=== PATIENT | female | born 1980 | race Caucasian/White ===

== ENCOUNTER 2017-03-23 04:35 | Emergency (ER) | payer SELFPAY ==
[~2017-03-23] VITALS: Ht 162.6 cm; Wt 65.0 kg
[2017-03-23 04:42] VITALS: BP 115/88; PULSE 85; RESP 20; TEMP 99.5; O2SAT 98
[2017-03-23] MEDS ORDERED: SILVER SULFADIAZINE 1% CR 50 GM JAR TOPICAL ONE (04:45)
[2017-03-23] MEDS ORDERED: KETOROLAC TROMETHAMINE 30 MG/ML (IVP) VIAL IV PUSH ONE (04:45)
[2017-03-23] MEDS ORDERED: SODIUM CHLOR 0.9% 1000 ML INJ 1,000 ML IV ONE (04:45)
[2017-03-23] MEDS ORDERED: TETANUS/DIPHTHERIA TOXOID ADULT 0.5 ML VIAL IM ONE (04:45)
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
[2017-03-23] MEDS ORDERED: oxyCODONE/ACETAMINOPHEN 5 MG/325 MG TAB PO ONE (05:15)
[2017-03-23] MEDS ORDERED: SILV1CRE20 TOPICAL (05:46)
[2017-03-23] MEDS ORDERED: PERC5TAB12 PO (05:46)
[2017-03-23] MEDS ORDERED: IBUP-232 PO (05:46)
[2017-03-23 06:12] VITALS: BP 121/71; PULSE 72; RESP 18; O2SAT 100
== END 2017-03-23 06:13 | disposition home or self-care (01) ==
LOC: PHED 04:35
DX: T21.21XA Burn of second degree of chest wall, initial encounter (principal); T22.291A Burn of second degree of multiple sites of right shoulder and upper limb, except wrist and hand, initial encounter; E16.2 Hypoglycemia, unspecified; Z23 Encounter for immunization; X12.XXXA Contact with other hot fluids, initial encounter; Y93.G3 Activity, cooking and baking; Y92.090 Kitchen in other non-institutional residence as the place of occurrence of the external cause; Y99.8 Other external cause status
CPT/HCPCS: 16025; 90471; 90714; 96361; 96374; 99284; J1885; J7030

== ENCOUNTER 2017-09-10 14:45 | Inpatient (IN) | payer SELFPAY ==
[~2017-09-10] VITALS: Ht 162.6 cm; Wt 78.7 kg
[~2017-09-10 14:45] MED LIST: IBUP-232 PO; PERC5TAB12 PO; SILV1CRE20 TOPICAL
[2017-09-10 15:03] VITALS: BP 122/73; PULSE 108; RESP 16; TEMP 99.2; O2SAT 97
[2017-09-10 16:16] VITALS: BP 109/59; PULSE 96; RESP 16; TEMP 99.5; O2SAT 95
[2017-09-10] MEDS ORDERED: SODIUM CHLOR 0.9% 1000 ML INJ 1,000 ML IV SCH (17:00)
[2017-09-10] MEDS ORDERED: VANCOMYCIN INJ 1,000 MG in SODIUM CHLOR 0.9% 250 ML INJ 250 ML IV ONE (17:00)
[2017-09-10] MEDS ORDERED: KETOROLAC TROMETHAMINE 30 MG/ML (IVP) VIAL IV PUSH ONE (17:00)
--- NOTE | 2017-09-10 17:00 | PD ---
HPI Chief Complaint: Skin Problem Time Seen by Provider: 16:43 Travel History International Travel<30 days: No Contact w/Intl Traveler<30days: No Traveled to known affect area: No History of Present Illness HPI 37-year-old female complaining of pain swelling right forearm. Patient states that she was doing yard work and got a puncture wound to the right forearm about 10 days ago. Patient states that the pain and swelling and redness is worse for the past 5 days. Patient states that she used a sharp pin and trying to drain the right forearm last night. Patient states that she got small amount of pus from it. Patient denies any fever chills. Patient states the pain is severe sharp pain localized to right forearm. Patient denies any pain radiation. Patient states that she is up-to-date with TD booster. Patient denies any chance of being . PFSH Past Medical History Cancer: Yes (STAGE II CERVICAL, lymphoma) Diminished Hearing: No Endocrine: Yes (HYPOGLYCEMIA) Immunizations Current: Yes Radiation Therapy: Yes Seizures: Yes Influenza Vaccination: No ?: Not LMP: 1 week ago : 9 Para: 2 Miscarriage: 7 Dilation and Curettage (D&C): Yes Past Surgical History Gynecologic Surgery: Yes (cervical scraping) Other Surgery: Yes (LYMPHOMA RIGHT LEG) Social History Alcohol Use: No Tobacco Use: Yes (1 ppd) Substance Use: No Allergies-Medications (Allergen,Severity, Reaction): Coded Allergies: morphine (Unverified Allergy, Intermediate, 09/10/17) penicillin G (Unverified Allergy, Unknown, 09/10/17) Reported Meds & Prescriptions Reported Meds & Active Scripts Active No Active Prescriptions or Reported Medications Review of Systems General / Constitutional: No: Fever Eyes: No: Visual changes HENT: No: Headaches Cardiovascular: No: Chest Pain or Discomfort Respiratory: No: Shortness of Breath Gastrointestinal: No: Abdominal Pain Genitourinary: No: Dysuria Musculoskeletal: Positive: Edema, Pain Skin: No Rash Neurologic: No: Weakness Psychiatric: No: Depression Endocrine: No: Polydipsia Hematologic/Lymphatic: No: Easy Bruising Physical Exam Narrative GENERAL: Well-nourished, well-developed patient. SKIN: Focused skin assessment warm/dry. HEAD: Normocephalic. EYES: No scleral icterus. No injection or drainage. NECK: Supple, trachea midline. No JVD or lymphadenopathy. CARDIOVASCULAR: Regular rate and rhythm without murmurs, gallops, or rubs. RESPIRATORY: Breath sounds equal bilaterally. No accessory muscle use. GASTROINTESTINAL: Abdomen soft, non-tender, nondistended. MUSCULOSKELETAL: Patient has redness swelling tenderness the right forearm. No induration. No discharge. Patient has edema to right hand also. Patient has several puncture wounds on the left hand dorsal aspect. BACK: Nontender without obvious deformity. No CVA tenderness. Neurologic exam normal. Data Data Last Documented VS Vital Signs Date Time Temp Pulse Resp B/P (MAP) Pulse Ox O2 Delivery O2 Flow Rate FiO2 09/10/17 16:16 99.5 96 16 109/59 (76) 95 Room Air Orders Orders Complete Blood Count With Diff (09/10/17 16:52) Comprehensive Metabolic Panel (09/10/17 16:52) Blood Culture (09/10/17 16:52) Iv Access Insert/Monitor (09/10/17 16:52) Ecg Monitoring (09/10/17 16:52) Sodium Chlor 0.9% 1000 Ml Inj (Ns 1000 M (09/10/17 17:00) Vancomycin Inj (Vancomycin Inj) (09/10/17 17:00) Ketorolac Inj (Toradol Inj) (09/10/17 17:00) Forearm (2vws) (09/10/17 16:56) Labs Laboratory Tests Test 09/10/17 17:05 White Blood Count 17.1 TH/MM3 Red Blood Count 4.83 MIL/MM3 Hemoglobin 12.4 GM/DL Hematocrit 38.9 % Mean Corpuscular Volume 80.6 FL Mean Corpuscular Hemoglobin 25.8 PG Mean Corpuscular Hemoglobin Concent 32.0 % Red Cell Distribution Width 13.9 % Platelet Count 361 TH/MM3 Mean Platelet Volume 7.9 FL Neutrophils (%) (Auto) 73.2 % Lymphocytes (%) (Auto) 16.9 % Monocytes (%) (Auto) 5.5 % Eosinophils (%) (Auto) 0.2 % Basophils (%) (Auto) 4.2 % Neutrophils # (Auto) 12.6 TH/MM3 Lymphocytes # (Auto) 2.9 TH/MM3 Monocytes # (Auto) 0.9 TH/MM3 Eosinophils # (Auto) 0.0 TH/MM3 Basophils # (Auto) 0.7 TH/MM3 CBC Comment DIFF FINAL Differential Comment Blood Urea Nitrogen 15 MG/DL Creatinine 0.71 MG/DL Random Glucose 74 MG/DL Total Protein 8.6 GM/DL Albumin 3.4 GM/DL Calcium Level 8.6 MG/DL Alkaline Phosphatase 146 U/L Aspartate Amino Transf (AST/SGOT) 67 U/L Alanine Aminotransferase (ALT/SGPT) 47 U/L Total Bilirubin 0.6 MG/DL Sodium Level 133 MEQ/L Potassium Level 4.8 MEQ/L Chloride Level 101 MEQ/L Carbon Dioxide Level 24.7 MEQ/L Anion Gap 7 MEQ/L Estimat Glomerular Filtration Rate 92 ML/MIN MDM Medical Decision Making Medical Screen Exam Complete: Yes Emergency Medical Condition: Yes Interpretation(s) 1739 PM. CBC WBC 17.1. 73 neutrophil. Sodium 133. AST 67. Alkaline phosphatase 146. Differential Diagnosis Differential diagnosis includes cellulitis, abscess. Narrative Course 37-year-old female with redness swelling tenderness right forearm after a puncture wound injury 10 days ago. Normal saline solution 1 25 cc an hour. Toradol 30 mg IV. Vancomycin 1 g IV. Diagnosis Primary Impression: Right forearm cellulitis Admitting Information Admitting Physician Requests: Admit Scripts No Active Prescriptions or Reported Meds Nathan Jefferson MD Sep 10, 2017 17:00
[2017-09-10 17:16] LABS: AUTOMATED NEUTROPHIL # 12.6 TH/MM3 (1.8-7.7); BASOPHIL # 0.7 TH/MM3 (0-0.2); BASOPHIL % 4.2 % (0.0-2.0); EOSINOPHIL % 0.2 % (0.0-4.0); HEMATOCRIT 38.9 % (35.0-46.0); LYMPH % 16.9 % (9.0-44.0); LYMPHOCYTE # 2.9 TH/MM3 (1.0-4.8); MEAN CELL VOLUME 80.6 FL (80.0-100.0); MEAN CORPUSCULAR HEMOGLOBIN 25.8 PG (27.0-34.0); MONO % 5.5 % (0.0-8.0); NEUT % 73.2 % (16.0-70.0); PLATELET COUNT 361 TH/MM3 (150-450); RED BLOOD COUNT 4.83 MIL/MM3 (4.00-5.30); RED CELL DISTRIBUTION WIDTH 13.9 % (11.6-17.2); WHITE BLOOD COUNT 17.1 TH/MM3 (4.0-11.0)
[2017-09-10 17:22] LABS: HEMO FLAGS DIFF FINAL
[2017-09-10 17:24] LABS: CHLORIDE 101 MEQ/L (98-107); POTASSIUM 4.8 MEQ/L (3.5-5.1); SODIUM (NA) 133 MEQ/L (136-145)
[2017-09-10 17:28] LABS: ANION GAP 7 MEQ/L (5-15); BICARBONATE 24.7 MEQ/L (21.0-32.0); BLOOD UREA NITROGEN 15 MG/DL (7-18)
[2017-09-10 17:31] LABS: ALT (GPT) 47 U/L (10-53); AST (GOT) 67 U/L (15-37); GLOMERULAR FILTRATION RATE 92 ML/MIN (>89)
[2017-09-10 17:33] LABS: TOTAL BILIRUBIN ADULT 0.6 MG/DL (0.2-1.0)
[2017-09-10 17:34] LABS: ALKALINE PHOSPHATASE 146 U/L (45-117)
--- NOTE | 2017-09-10 17:48 | RADRPT ---
EXAM DATE/TIME: 09/10/2017 17:33 [facility] COMPARISON: No previous studies available for comparison. INDICATIONS : Fell on yard debris, had scrape to forearm, no has swelling, redness, pain, hot to touch MEDICAL HISTORY : None. SURGICAL HISTORY : None. ENCOUNTER: Initial ACUITY: 1 week PAIN SCORE: 10/10 LOCATION: Right Forearm FINDINGS: Two view examination of the right forearm demonstrates no evidence of fracture or dislocation. Bony mineralization is normal. The soft tissue structures are swollen. CONCLUSION: 1. Soft tissue swelling of the forearm. No acute bony abnormality. Sandro Jacobs MD on September 10, 2017 at 17:45 Board Certified Radiologist. This report was verified electronically.
[2017-09-10 18:20] VITALS: BP 98/55; PULSE 86; RESP 16; O2SAT 98
[2017-09-10] MEDS: SODIUM CHLOR 0.9% 1000 ML INJ 1,000 ML IV SCH (18:58)
[2017-09-10] MEDS ORDERED: SODIUM CHLORID 0.9% 500 ML INJ 500 ML IV ONE (19:00)
[2017-09-10] MEDS ORDERED: SODIUM CHLOR 0.9% 1000 ML INJ 1,000 ML IV ONE (19:00)
--- NOTE | 2017-09-10 19:40 | HHI.HP ---
HPI Service [facility] Primary Care Physician No Primary Care Physician Admission Diagnosis right forearm cellulitis Diagnoses: Chief Complaint: arm pain Travel History International Travel<30 Days: No Contact w/Intl Traveler <30 Da: No Traveled to Known Affected Are: No History of Present Illness 37-year-old female being admitted for sepsis secondary to cellulitis. 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 She says she had some bleeding and simply cleaned this up. She has had persistent pain in the region since the injury but 5 days later on the opposite side of the forearm ( posterior aspect) she noted a bolus-like lesion appear at the junction of her wrist which then progressed to diffuse wrist swelling as well as diffuse forearm swelling. She said she tried to mary a vesicular appearing lesions on her distal forearm one of which did rupture with her line exudate. She used her work name-tag for the lancing. She says she got very little relief from the lancing. She decided to come to the emergency room when she woke up in intense pain last night that made her cry. She does endorse some fevers and chills but no nausea no vomiting. In the emergency room she received vancomycin. Lab work found that she was leukocytotic. Patient reports having a history of both lymphoma and cervical stage II cancer; says she has poor medical follow-up due to no insurance down here in [place]. Her illnesses were previously managed in [place] and she thought she was told by somebody she might have cancer in her left breast or at least lymphadenopathy in her left breast. Case d/w ER physician. Review of Systems Except as stated in HPI: all other systems reviewed are Neg Past Family Social History Past Medical History Lymphoma (nonspecified but behind the right knee) - treated for [place] Stage II cervical cancer - with comprehensive treatment done in [place] Previous episodes of cellulitis on the arms Psoriasis Allergies: Coded Allergies: adhesive (Verified Allergy, Severe, Rash, 09/11/17) latex (Verified Allergy, Severe, Rash, 09/11/17) morphine (Verified Allergy, Severe, Hypotension, 09/11/17) penicillin G (Verified Allergy, Severe, Anaphylaxis, 09/11/17) Family History Cousin with rosacea Social History Patient does smoke cigarettes at least 2-3 packs a day Physical Exam Vital Signs Vital Signs Date Time Temp Pulse Resp B/P (MAP) Pulse Ox O2 Delivery O2 Flow Rate FiO2 09/10/17 18:20 86 16 98/55 (69) 98 Room Air 09/10/17 16:16 99.5 96 16 109/59 (76) 95 Room Air 09/10/17 15:03 99.2 108 16 122/73 (89) 97 Physical Exam VS: Afebrile GENERAL: NAD SKIN: Warm and dry. Breast: Exam done in presence of female nurse, has mild tender soft fluctuant lesion in Center quadrant above nipple line and breast, no overlying skin changes and no lymph nodes palpated in axilla or remaining breast quadrants EYES: No scleral icterus. No injection or drainage. ENT: No nasal bleeding or discharge. Mucous membranes pink and moist. CARDIOVASCULAR: Regular rate and rhythm. no murmurs RESPIRATORY: No accessory muscle use. Clear to auscultation. Breath sounds equal bilaterally. GASTROINTESTINAL: Abdomen soft, non-tender, nondistended. Extremities: No clubbing, cyanosis. Has obvious edema that extends from the mid shaft forearm on the posterior side down to the hand; there is exquisite tenderness to palpation over the erythematous patchy areas. MUSCULOSKELETAL: No obvious deformities. I am able to passively fully flex and extend the patient's wrist and fingers but both motions cause pain at the patient's wrist joint. NEUROLOGICAL: Awake and alert. No obvious cranial nerve deficits. No facial droop nor slurred speech noted. PSYCHIATRIC: Appropriate mood and affect; insight and judgment normal. Laboratory Laboratory Tests Test 09/10/17 17:05 White Blood Count 17.1 Red Blood Count 4.83 Hemoglobin 12.4 Hematocrit 38.9 Mean Corpuscular Volume 80.6 Mean Corpuscular Hemoglobin 25.8 Mean Corpuscular Hemoglobin Concent 32.0 Red Cell Distribution Width 13.9 Platelet Count 361 Mean Platelet Volume 7.9 Neutrophils (%) (Auto) 73.2 Lymphocytes (%) (Auto) 16.9 Monocytes (%) (Auto) 5.5 Eosinophils (%) (Auto) 0.2 Basophils (%) (Auto) 4.2 Neutrophils # (Auto) 12.6 Lymphocytes # (Auto) 2.9 Monocytes # (Auto) 0.9 Eosinophils # (Auto) 0.0 Basophils # (Auto) 0.7 CBC Comment DIFF FINAL Differential Comment Blood Urea Nitrogen 15 Creatinine 0.71 Random Glucose 74 Total Protein 8.6 Albumin 3.4 Calcium Level 8.6 Alkaline Phosphatase 146 Aspartate Amino Transf (AST/SGOT) 67 Alanine Aminotransferase (ALT/SGPT) 47 Total Bilirubin 0.6 Sodium Level 133 Potassium Level 4.8 Chloride Level 101 Carbon Dioxide Level 24.7 Anion Gap 7 Estimat Glomerular Filtration Rate 92 Date/Time Source Procedure Growth Status 09/10/17 17:15 Blood Peripheral Aerobic Blood Culture Pending Received 09/10/17 17:15 Blood Peripheral Anaerobic Blood Culture Pending Received Result Diagram: 09/10/17 1705 09/10/17 1705 Imaging Last Impressions Radius/Ulna X-Ray 09/10/17 1656 Signed Impressions: Service Date/Time: Sunday, September 10, 2017 17:33 - CONCLUSION: 1. Soft tissue swelling of the forearm. No acute bony abnormality. Sandro Jacobs MD Caprini VTE Risk Assessment Caprini VTE Risk Assessment: Mod/High Risk (score >= 2) Caprini Risk Assessment Model Point Value = 1 Point Value = 2 Point Value = 3 Point Value = 5 Age 41-60 Minor surgery BMI > 25 kg/m2 Swollen legs Varicose veins or History of unexplained or recurrent spontaneous Oral contraceptives or hormone replacement Sepsis (< 1 month) Serious lung disease, including pneumonia (< 1 month) Abnormal pulmonary function Acute myocardial infarction Congestive heart failure (< 1 month) History of inflammatory bowel disease Medical patient at bed rest Age 61-74 Arthroscopic surgery Major open surgery (> 45 min) Laparoscopic surgery (> 45 min) Malignancy Confined to bed (> 72 hours) Immobilizing plaster cast Central venous access Age >= 75 History of VTE Family history of VTE Factor V Leiden Prothrombin [id number] Lupus anticoagulant Anticardiolipin antibodies Elevated serum homocysteine Heparin-induced thrombocytopenia Other congenital or acquired thrombophilia Stroke (< 1 month) Elective arthroplasty Hip, pelvis, or leg fracture Acute spinal cord injury (< 1 month) Prophylaxis Regimen Total Risk Factor Score Risk Level Prophylaxis Regimen 0-1 Low Early ambulation 2 Moderate Order ONE of the following: *Sequential Compression Device (SCD) *Heparin 5000 units SQ BID 3-4 Higher Order ONE of the following medications: *Heparin 5000 units SQ TID *Enoxaparin/Lovenox 40 mg SQ daily (WT < 150 kg, CrCl > 30 mL/min) *Enoxaparin/Lovenox 30 mg SQ daily (WT < 150 kg, CrCl > 10-29 mL/min) *Enoxaparin/Lovenox 30 mg SQ BID (WT < 150 kg, CrCl > 30 mL/min) AND/OR *Sequential Compression Device (SCD) 5 or more Highest Order ONE of the following medications: *Heparin 5000 units SQ TID (Preferred with Epidurals) *Enoxaparin/Lovenox 40 mg SQ daily (WT < 150 kg, CrCl > 30 mL/min) *Enoxaparin/Lovenox 30 mg SQ daily (WT < 150 kg, CrCl > 10-29 mL/min) *Enoxaparin/Lovenox 30 mg SQ BID (WT < 150 kg, CrCl > 30 mL/min) AND *Sequential Compression Device (SCD) Assessment and Plan Assessment and Plan sepsis secondary to forearm cellulitis with possible abscess - Blood cultures, obtain cath UA - We'll obtain chest x-ray - NS 30 ML/KG IV fluid bolus Followed by IV infusion Right arm edema - Discussed thoroughly with ultrasound to evaluate for both emboli as well as soft tissue abscess from the forearm down to the hand - We'll continue with vancomycin, patient has clarified that she cannot take penicillin as it ultimately results in her throat closing in the past but she has recently taken Keflex with no issues, therefore we will use additionally use cefepime for appropriate broad-spectrum coverage - Nothing by mouth after midnight in case surgical intervention is warranted tender breast nodules - US of left breast DVT prevention - SCDs for now given possibly of surgical intervention Physician Certification 2 Midnight Certification Type: Admission for Inpatient Services Order for Inpatient Services The services are ordered in accordance with Medicare regulations or non- Medicare payer requirements, as applicable. In the case of services not specified as inpatient-only, they are appropriately provided as inpatient services in accordance with the 2-midnight benchmark. Estimated LOS (days): 2 2 days is the estimated time the patient will need to remain in the hospital, assuming treatment plan goals are met and no additional complications. Post-Hospital Plan: Home Martínez Jara MD Sep 10, 2017 19:40
[2017-09-10] MEDS ORDERED: HYDROmorphone HCL PF 1 MG/ML VIAL IV PUSH ONE (19:45)
[2017-09-10] MEDS ORDERED: ACETAMINOPHEN/HYDROcodone 325 MG/5 MG TAB PO ONE (19:45)
[2017-09-10 20:00] VITALS: BP 94/52; PULSE 88; RESP 16; TEMP 98.3; O2SAT 95
[2017-09-10] MEDS ORDERED: Vancomycin Consult Pharmacy 1 EA OTHER SCH ×2 (20:00)
--- NOTE | 2017-09-10 20:13 | RADRPT ---
EXAM DATE/TIME: 09/10/2017 19:37 [facility] COMPARISON: No previous studies available for comparison. INDICATIONS : Abscess. MEDICAL HISTORY : Glasses. Seizures. Hypoglycemia. Cervical cancer. Lymphoma. Radiation therapy. SURGICAL HISTORY : Cervical scraping. Dilation and curettage. ENCOUNTER: Initial ACUITY: 2 weeks PAIN SCORE: 8/10 LOCATION: Right Forerarm/hand AREA EVALUATED: Right forearm/hand. FINDINGS: Multiple complex fluid and soft tissue collections involving the right posterior wrist measuring up t o 2.5 x 0.4 x 2.5 cm. In the mid right forearm these measure up to 9.9 cm in length by 2.3 x 3.1 cm. CONCLUSION: 1. Multiple complex fluid and soft tissue collections involving the right posterior wrist and forearm . Differential diagnosis is infection and/or inflammatory change. Sandro Jacobs MD on September 10, 2017 at 20:09 Board Certified Radiologist. This report was verified electronically.
--- NOTE | 2017-09-10 20:14 | RADRPT ---
EXAM DATE/TIME: 09/10/2017 19:38 [facility] COMPARISON: No previous studies available for comparison. INDICATIONS : Right arm swelling. MEDICAL HISTORY : Glasses. Seizures. Hypoglycemia. Cervical cancer. Lymphoma. Radiation therapy. SURGICAL HISTORY : Cervical scraping. Dilation and curettage. ENCOUNTER: Initial ACUITY: 2 weeks PAIN SCORE: 8/10 LOCATION: Right arm. FINDINGS: There is spontaneous flow documented in the brachial, basilic, cephalic, axillary, and subclavian vei ns. The vessels are compressible and augmentation response is documented. No filling defects are se en. The flow is phasic with respiration. Direction of flow in the jugular vein is caudal. CONCLUSION: Normal examination. Sandro Jacobs MD on September 10, 2017 at 20:12 Board Certified Radiologist. This report was verified electronically.
--- NOTE | 2017-09-10 20:24 | RADRPT ---
EXAM DATE/TIME: 09/10/2017 19:59 [facility] COMPARISON: No previous studies available for comparison. INDICATIONS : Fever, right forearm swelling, sepsis. MEDICAL HISTORY : Lymphoma. Smoker. Cervical carcinoma. SURGICAL HISTORY : None. ENCOUNTER: Initial ACUITY: 4 - 6 days PAIN SCORE: 0/10 LOCATION: Bilateral chest FINDINGS: PA and lateral views of the chest demonstrate the lungs to be symmetrically aerated without evidence of mass, infiltrate or effusion. The cardiomediastinal contours are unremarkable. Osseous structure s are intact. CONCLUSION: No acute disease. Sandro Jacobs MD on September 10, 2017 at 20:22 Board Certified Radiologist. This report was verified electronically.
[2017-09-10] MEDS: CEFEPIME INJ 2,000 MG in SODIUM CHLORIDE 0.9% INJ 100 ML IV SCH (20:59)
[2017-09-11] VITALS: BP 93/52; PULSE 88; RESP 16; TEMP 98.9; O2SAT 95
[2017-09-11] MEDS: ACETAMINOPHEN/HYDROcodone 325 MG/10 MG TAB PO PRN ×3 (01:19→20:04)
[2017-09-11 04:00] VITALS: BP 118/56; PULSE 88; RESP 16; TEMP 98.4; O2SAT 95
[2017-09-11] MEDS: VANCOMYCIN 1,000 MG/NS 250 ML IV SCH ×4 (05:00→16:18)
[2017-09-11 06:38] LABS: AUTOMATED NEUTROPHIL # 8.4 TH/MM3 (1.8-7.7); BASOPHIL # 0.1 TH/MM3 (0-0.2); EOSINOPHIL % 0.4 % (0.0-4.0); HEMATOCRIT 33.4 % (35.0-46.0); HEMO FLAGS DIFF FINAL; LYMPH % 22.2 % (9.0-44.0); LYMPHOCYTE # 2.7 TH/MM3 (1.0-4.8); MEAN CELL VOLUME 81.6 FL (80.0-100.0); MEAN CORPUSCULAR HEMOGLOBIN 26.3 PG (27.0-34.0); MEAN CORPUSCULAR HGB CONC 32.2 % (32.0-36.0); MONO % 7.9 % (0.0-8.0); NEUT % 68.5 % (16.0-70.0); PLATELET COUNT 266 TH/MM3 (150-450); RED BLOOD COUNT 4.09 MIL/MM3 (4.00-5.30); RED CELL DISTRIBUTION WIDTH 13.7 % (11.6-17.2); WHITE BLOOD COUNT 12.2 TH/MM3 (4.0-11.0)
[2017-09-11] MEDS: SODIUM CHLOR 0.9% 1000 ML INJ 1,000 ML IV SCH ×3 (06:41→20:03)
[2017-09-11 08:00] VITALS: BP 100/55; PULSE 98; RESP 18; TEMP 99.2; O2SAT 99
[2017-09-11] MEDS: CEFEPIME INJ 2,000 MG in SODIUM CHLORIDE 0.9% INJ 100 ML IV SCH ×2 (08:00→20:02)
[2017-09-11] MEDS: HYDROmorphone HCL PF 1 MG/ML VIAL IV PUSH PRN ×3 (09:35→21:18)
[2017-09-11] MEDS ORDERED: NEOMYCIN/POLYMYXIN 1 ML G.U. IRRIGANT ONE (10:05)
--- NOTE | 2017-09-11 10:14 | HHI.PR ---
Subjective Remarks RN reports patient has had uncontrolled pain since last night still. Patient says her arm still has uncontrolled swelling. Has had some mild nausea this morning. Objective Vital Signs Date Time Temp Pulse Resp B/P (MAP) Pulse Ox O2 Delivery O2 Flow Rate FiO2 09/11/17 08:00 99.2 98 18 100/55 (70) 99 09/11/17 04:00 98.4 88 16 118/56 (76) 95 09/11/17 00:00 98.9 88 16 93/52 (66) 95 09/10/17 20:28 98 09/10/17 20:00 98.3 88 16 94/52 (66) 95 09/10/17 18:20 86 16 98/55 (69) 98 Room Air 09/10/17 16:16 99.5 96 16 109/59 (76) 95 Room Air 09/10/17 15:03 99.2 108 16 122/73 (89) 97 I/O 09/10/17 09/10/17 09/10/17 09/11/17 09/11/17 09/11/17 07:00 15:00 23:00 07:00 15:00 23:00 Intake Total 1478 ml 2450 ml Balance 1478 ml 2450 ml Intake IV Total 1478 ml 2450 ml # Voids 2 Result Diagram: 09/11/17 0625 09/10/17 1705 Objective Remarks exam unchanged since yesterday pt has 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 CXR I independently reviewed is negative. DVT prevention - SCDs for now given surgical intervention Martínez Jara MD Sep 11, 2017 10:13
[2017-09-11] MEDS ORDERED: MIDAZOLAM HCL 2 MG/2 ML VIAL ONE (10:27)
--- NOTE | 2017-09-11 10:39 | MB ---
cc: AISHA PATRICK MD DATE OF CONSULTATION: 09/11/2017 REASON FOR CONSULTATION: Right forearm abscess. HISTORY OF PRESENT ILLNESS: The patient is a 37-year-old right-hand dominant female presenting with complaints of pain and swelling involving the right forearm for the past ten days which is gradually increasing. The patient states she scraped her arm against something sharp and she tried to puncture it with a pin trying to drain the forearm. She presented to the hospital with worsening pain involving the right forearm. She denies any tingling or numbness. Denies any drainage. She complains of weakness of the right hand. Denies any fever. The patient states she is feeling chills this morning. Denies any history of similar complaints in the past. PAST MEDICAL HISTORY: Significant for lymphoma and cervical cancer. PAST SURGICAL HISTORY: Nonsignificant. PHYSICAL EXAMINATION: The patient is alert and oriented x 3. Examination of the right upper extremity reveals swelling over the dorsal aspect of the distal forearm extending along the whole length of the forearm. There is tenderness noted over the dorsal aspect of the distal forearm with exquisite tenderness over the region. She has increased warmth. She has intact extension of the thumb and fingers. The wrist range of motion is limited and painful. The forearm compartments on the volar aspect appears to be supple, the dorsal aspect appears to be not tense. She has palpable radial and ulnar pulses. She has intact sensation distally. LABORATORY DATA: White blood cell count is 17.1 with neutrophil shift of 73%. IMAGING STUDIES: Ultrasound of the right upper extremity shows evidence of a complex fluid collection over the dorsal aspect, distal forearm. ASSESSMENT: The patient is a 37-year-old female with abscess right forearm. PLAN: Plan will be to take the patient emergently for incision and drainage of right forearm abscess. The patient has been explained the risk and benefits of the procedure. We will continue with IV antibiotics. Aisha Patrick MD SE/BABAR /9:34 AM /10:24 AM [facility]
[2017-09-11] MEDS ORDERED: CLINDAMYCIN PHOS 600 MG/4 ML VIAL ONE (11:07)
[2017-09-11] MEDS ORDERED: HYDROmorphone HCL PF 2 MG/ML VIAL ONE ×3 (12:30→13:00)
--- NOTE | 2017-09-11 12:33 | PD.OP ---
Operative Report Preoperative Diagnosis: (1) Abscess of right forearm Postoperative Diagnosis: (1) Abscess of right forearm (2) compartment syndrome extensor right forearm Procedure: incision and drainage right forearm abscess extensor compartment release with debridement of necrotic muscle right forearm Anesthesia: general Surgeon: Anton Oseguera Cosmetics Demonstrator(s): xavi Operation and Findings: subfascial abscess extensor compartment necrotic muscle with extensor tenosynovitis right forearm Anton Oseguera MD Sep 11, 2017 12:33
[2017-09-11] MEDS ORDERED: MEPERIDINE HCL 25 MG/ML VIAL ONE (12:46)
[2017-09-11] MEDS ORDERED: LACTATED RINGER'S 1000 ML INJ 1,000 ML ONE (12:57)
[2017-09-11] MEDS ORDERED: METOPROLOL TARTRATE 25 MG TAB PO PRN (13:00)
[2017-09-11] MEDS ORDERED: SODIUM CHLORID 0.9% 500 ML IV PRN (13:00)
[2017-09-11] MEDS ORDERED: LACTATED RINGER'S 1000 ML IV PRN (13:00)
[2017-09-11] MEDS ORDERED: CHLORHEXIDINE GLUCONATE 2 % 1 PACK (2 CLOTHS) TOPICAL PRN (13:00)
[2017-09-11] MEDS ORDERED: POVIDONE IODINE 5% (ANTISEPSIS KIT) 4 APPLICATIONS EACH NARE PRN (13:00)
--- NOTE | 2017-09-11 13:13 | MP ---
cc: ANTON PATRICK MD DATE OF SURGERY: 09/11/2017 PREOPERATIVE DIAGNOSIS: Abscess right forearm. POSTOPERATIVE DIAGNOSIS: Abscess right forearm, compartment syndrome. Extensor right forearm surgery. OPERATION: Incision and drainage right forearm abscess, Extensor compartment release with debridement of necrotic muscle right forearm. SURGEON Dr. Patrick ANESTHESIA General ESTIMATED BLOOD LOSS Minimal TOURNIQUET TIME 30 minutes at 250 mmHg. Material was sent for culture and sensitivity and for pathology to PACU stable. INDICATIONS FOR PROCEDURE: The patient is a 37-year-old female who presented with complaints of pain, swelling over the right forearm for the past 10 days. She complained of severe pain which is getting worse and she was admitted last night. On examination she had swelling and exquisite tenderness over the dorsal aspect of the forearm. Range of motion of the wrist was limited and painful. She had an elevated white count of 12.2 and she had an ultrasound that showed complex collection involving the right forearm measuring 4 x 3 cm on the dorsal aspect of the wrist and another collection extending over the mid forearm region measuring about 9 x 2 x 3 cm. The patient was consented for incision and drainage of right forearm abscess. She was explained the risks and benefits of the procedure. DESCRIPTION OF PROCEDURE: The patient was brought to the operating room, under general anesthesia the right upper extremity was thoroughly prepped and draped. Incision site was marked in a longitudinal fashion corresponding to the swelling and tenderness in the distal part of the mid forearm measuring about 5-6 cm. After limb elevation tourniquet was inflated 250 mmHg. Incision was then made over the proposed incision site. There was evidence of extensive thickening and induration of the subcutaneous soft tissue. On further exploration there was evidence of bulging from underneath the fascia involving the extensor compartment on releasing the fascia. There was evidence of purulent material with necrosis within the extensor compartment of the forearm. The muscle appeared to be necrotic, hence decision was made to release the extensor compartment. About 10 to 15 cc of purulent material was drained. The material was sent for culture and sensitivity. Extensor compartment was released all the way to the proximal forearm. Another small incision was made over the proximal aspect of the forearm exposing the extensor compartment and extensor fascia was released over that region and was connected to the main incision site. Excisional debridement of necrotic muscle was carried out. Distally the incision was extended to the extensor retinaculum. There was evidence of extensor tenosynovitis which was debrided. Material was sent for pathology and culture and sensitivity. Thorough wash was carried out using normal saline mixed with hydrogen peroxide. This was then followed by normal saline mixed with irrigant. About a liter of solution was used. Tourniquet was deflated. Total tourniquet time was 30 minutes. She had good distal circulation. Bleeding points cauterized with bipolar cautery. Decision was made to proceed with Vac placement. Wound Vac was then applied, held in place by kay. Bulky hand dressing was applied which was held in place by Sof-Rol. The patient was recovered and sent to the Recovery Room in stable condition. The plan will be to take her to surgery tomorrow for repeat wash and debridement. She will continue with IV antibiotics. Anton Patrick MD SE/BABAR /12:35 PM /12:56 PM [facility]
[2017-09-11 17:00] VITALS: BP 112/68; PULSE 88; RESP 18; TEMP 98.9; O2SAT 99
[2017-09-11 20:00] VITALS: BP 118/58; PULSE 94; RESP 16; TEMP 99.7; O2SAT 97
[2017-09-12] VITALS: BP 95/58; PULSE 95; RESP 16; TEMP 98.7; O2SAT 97
[2017-09-12] MEDS: ACETAMINOPHEN/HYDROcodone 325 MG/10 MG TAB PO PRN ×3 (00:13→08:09)
[2017-09-12] MEDS: HYDROmorphone HCL PF 1 MG/ML VIAL IV PUSH PRN ×2 (01:20→05:20)
[2017-09-12] MEDS ORDERED: LORazepam 2 MG/ML VIAL IV SCH (04:30)
[2017-09-12] MEDS: VANCOMYCIN 1,000 MG/NS 250 ML IV SCH ×6 (04:45→21:34)
[2017-09-12] MEDS ORDERED: VANCOMYCIN TROUGH ONE (04:45)
[2017-09-12 05:11] LABS: AUTOMATED NEUTROPHIL # 7.8 TH/MM3 (1.8-7.7); BASOPHIL # 0.3 TH/MM3 (0-0.2); BASOPHIL % 2.9 % (0.0-2.0); EOSINOPHIL % 0.3 % (0.0-4.0); HEMATOCRIT 30.7 % (35.0-46.0); HEMO FLAGS DIFF FINAL; LYMPH % 15.7 % (9.0-44.0); LYMPHOCYTE # 1.7 TH/MM3 (1.0-4.8); MEAN CELL VOLUME 80.5 FL (80.0-100.0); MEAN CORPUSCULAR HEMOGLOBIN 26.4 PG (27.0-34.0); MEAN CORPUSCULAR HGB CONC 32.8 % (32.0-36.0); MONO % 8.9 % (0.0-8.0); NEUT % 72.2 % (16.0-70.0); PLATELET COUNT 275 TH/MM3 (150-450); RED BLOOD COUNT 3.81 MIL/MM3 (4.00-5.30); RED CELL DISTRIBUTION WIDTH 13.6 % (11.6-17.2); WHITE BLOOD COUNT 10.6 TH/MM3 (4.0-11.0)
[2017-09-12 08:00] VITALS: BP 115/68; PULSE 90; RESP 18; TEMP 98.8; O2SAT 98
[2017-09-12] MEDS: CEFEPIME INJ 2,000 MG in SODIUM CHLORIDE 0.9% INJ 100 ML IV SCH ×2 (08:10→20:40)
--- NOTE | 2017-09-12 09:30 | HHI.PR ---
Subjective Remarks RN reports patient has had uncontrolled pain since last night still. Patient says her arm still has uncontrolled swelling. Has had some mild nausea this morning. I instructed nursing yesterday to get the urine sample but the patient tells me that she simply has not urinated since the surgery; yet she has not complained at all about any abdominal distention or discomfort. Objective Vital Signs Date Time Temp Pulse Resp B/P (MAP) Pulse Ox O2 Delivery O2 Flow Rate FiO2 09/12/17 00:00 98.7 95 16 95/58 (70) 97 09/11/17 20:00 99.7 94 16 118/58 (78) 97 09/11/17 17:00 98.9 88 18 112/68 (83) 99 09/11/17 13:45 99.0 91 16 126/77 (93) 95 09/11/17 13:30 92 16 124/78 (93) 95 09/11/17 13:15 98 16 125/75 (92) 96 09/11/17 13:00 97 16 126/74 (91) 99 09/11/17 12:45 100 16 121/82 (95) 99 09/11/17 12:38 98.9 94 20 116/74 (88) 100 Room Air 09/11/17 10:05 99.2 87 18 110/69 (83) 99 I/O 09/11/17 09/11/17 09/11/17 09/12/17 09/12/17 09/12/17 07:00 15:00 23:00 07:00 15:00 23:00 Intake Total 2450 ml 1500 ml 590 ml 300 ml Balance 2450 ml 1500 ml 590 ml 300 ml Intake Oral 240 ml 300 ml IV Total 2450 ml 1500 ml 350 ml # Voids 2 0 2 Result Diagram: 09/12/175 09/12/17 0445 Objective Remarks Patient is tearful talking about her inadequate pain control Patient's right arm is completely dressed and postop dressing with only her fingers protruding which appear normal Patient is nonlabored state of breathing Abdomen is soft, nondistended, nontender especially the suprapubic region A/P Assessment and Plan I had a thorough conversation about the patient's pain control and I informed her that I will increase both the baseline by mouth medication as well as the breakthrough pain medication strength. She said would repetitively states that "if I'm going to be in this much pain I would rather be at home and in pain." I had informed her clearly that if she was going to leave AGAINST MEDICAL ADVICE that she could potentially at home. Patient at this time initially agreed with my plan and did not vocalize any objections to it. Later on charge nurse noted that the patient had stepped outside the hospital twice to smoke and she had been threatening to leave AMA with a wound vac on her arm even after my conversation with her. Fortunately the hand surgeon was called and he did his second part of his surgery today and the patient is now willing to stay. sepsis secondary to forearm cellulitis with possible abscess - continue current abx of vanc and cefepime - MRSA isolated from wound culture Abscess confirmed on ultrasound - D/w hand surgery, post op phase 2 - Switch from Agency to Percocet and increased Dilaudid strength DVT prevention - SCDs for now given surgical intervention Martínez Jara MD Sep 12, 2017 09:29
[2017-09-12] MEDS: HYDROmorphone HCL PF 2 MG/ML VIAL IV PUSH PRN ×4 (09:35→23:53)
[2017-09-12] MEDS ORDERED: NEOMYCIN/POLYMYXIN 1 ML G.U. IRRIGANT ONE ×2 (10:24→11:44)
[2017-09-12] MEDS ORDERED: MUPIROCIN 2% OINT 22 GM TUBE ONE (10:24)
[2017-09-12] MEDS ORDERED: BUPIVACAINE HCL PF 0.5% 30 ML VIAL ONE (10:24)
[2017-09-12] MEDS ORDERED: LIDOCAINE HCL 2% 50 ML VIAL ONE (10:24)
[2017-09-12] MEDS: SODIUM CHLOR 0.9% 1000 ML INJ 1,000 ML IV SCH ×2 (10:58→21:35)
[2017-09-12 12:00] VITALS: BP 118/70; PULSE 89; RESP 18; TEMP 98; O2SAT 98
[2017-09-12] MEDS ORDERED: CHLORHEXIDINE GLUCONATE 2 % 1 PACK (2 CLOTHS) TOPICAL PRN (12:15)
[2017-09-12] MEDS ORDERED: SODIUM CHLORID 0.9% 500 ML IV PRN (12:15)
[2017-09-12] MEDS ORDERED: POVIDONE IODINE 5% (ANTISEPSIS KIT) 4 APPLICATIONS EACH NARE PRN (12:15)
[2017-09-12] MEDS ORDERED: LACTATED RINGER'S 1000 ML IV PRN (12:15)
--- NOTE | 2017-09-12 12:42 | PD.OP ---
Operative Report Preoperative Diagnosis: (1) Abscess of right forearm (2) compartment syndrome extensor right forearm Postoperative Diagnosis: (1) Abscess of right forearm (2) compartment syndrome extensor right forearm Procedure: exploration, wash, excisional debridement right forearm Anesthesia: general Surgeon: Anton Oseguera Bulking Machine Operator(s): xavi Operation and Findings: extensive swelling of the subcutaneous tissue minimal purulence minimal necrotic tissue of the muscle and extensor tendons Anton sOeguera MD Sep 12, 2017 12:42
[2017-09-12] MEDS ORDERED: LORazepam 2 MG/ML VIAL ONE (13:15)
[2017-09-12] MEDS ORDERED: MEPERIDINE HCL 25 MG/ML VIAL ONE (13:16)
[2017-09-12] MEDS ORDERED: HYDROmorphone HCL PF 2 MG/ML VIAL ONE (13:26)
--- NOTE | 2017-09-12 13:29 | MP ---
cc: ANTON PATRICK MD DATE OF SURGERY 09/12/2017 PREOPERATIVE DIAGNOSIS Abscess right forearm status post fasciotomy extensor compartment right forearm. POSTOPERATIVE DIAGNOSIS Abscess right forearm status post extensor compartment fasciotomy right forearm. PROCEDURE Exploration, wash, excisional debridement right forearm. SURGEON Dr. Patrick ANESTHESIA General ESTIMATED BLOOD LOSS About 10 cc TOURNIQUET TIME No tourniquet was used. DISPOSITION To PACU stable. INDICATIONS The patient is a 37-year-old female diagnosed with right forearm abscess of the extensor compartment status post incision and drainage and extensor compartment fasciotomy right forearm yesterday who was brought in today for repeat exploration, wash and debridement. The patient was explained the risks and benefits of the procedure. PROCEDURE The patient was brought to the operating room. Under general anesthesia, the previously placed VAC was removed. The right upper extremity was thoroughly prepped and draped. No tourniquet was used. The patient had intense swelling of the subcutaneous tissue. The muscles appeared to be viable. Minimal necrotic muscle was noted which was debrided. The extensor tendons showed minimal devitalization necrosis which was excisionally debrided. A thorough wash of the wound was carried out using normal saline mixed with hydrogen peroxide. This was then followed by normal saline mixed with irrigant. The wound was then loosely approximated with kay and vessel loops in a shoelace pattern. Xeroform bacitracin dressing applied. About 10 cc of local anesthesia was injected around the incision site. A bulky hand dressing was applied which was held in place by Sof-Rol and bias hand wrap. The patient was recovered and sent to the Recovery Room in stable condition. We will keep the part elevated and plan for bringing her for repeat wash and partial closure of the wound. Anton Patrick MD SE/DOTTY /12:42 PM /1:21 PM [facility]
[2017-09-12] MEDS: oxyCODONE/ACETAMINOPHEN 10 MG/325 MG TAB PO PRN ×2 (15:06→22:05)
[2017-09-12] MEDS: NICOTINE 21 MG/24 HR PATCH T-DERMAL SCH (15:14)
[2017-09-12] MEDS ORDERED: DO NOT ADM ANY ANTICOAGULANT DRUGS PRN (15:45)
[2017-09-12 16:00] VITALS: BP 122/74; PULSE 85; RESP 18; TEMP 98; O2SAT 97
[2017-09-12 20:00] VITALS: BP 111/59; PULSE 20; RESP 16; TEMP 98; O2SAT 92
[2017-09-13] MEDS: oxyCODONE/ACETAMINOPHEN 10 MG/325 MG TAB PO PRN ×5 (02:08→21:16)
[2017-09-13] MEDS: HYDROmorphone HCL PF 2 MG/ML VIAL IV PUSH PRN ×5 (03:38→21:57)
[2017-09-13 04:00] VITALS: BP 105/59; PULSE 73; RESP 18; TEMP 98.5; O2SAT 90
[2017-09-13] MEDS: VANCOMYCIN 1,000 MG/NS 250 ML IV SCH ×4 (05:39→17:00)
[2017-09-13] MEDS: SODIUM CHLOR 0.9% 1000 ML INJ 1,000 ML IV SCH ×2 (05:39→16:58)
--- NOTE | 2017-09-13 07:28 | HHI.PR ---
Subjective Remarks complains of pain denies any fever denies any numbness Objective Vital Signs Date Time Temp Pulse Resp B/P (MAP) Pulse Ox O2 Delivery O2 Flow Rate FiO2 09/13/17 04:00 98.5 73 18 105/59 (74) 90 09/12/17 20:00 98.0 20 16 111/59 (76) 92 09/12/17 16:00 98.0 85 18 122/74 (90) 97 09/12/17 13:45 99.0 105 18 118/68 (85) 97 Room Air 09/12/17 13:35 107 18 115/69 (84) 95 Room Air 09/12/17 13:20 105 18 119/81 (94) 95 Room Air 09/12/17 13:10 103 18 144/96 (112) 97 Nasal Cannula 3 09/12/17 13:05 101 18 147/97 (114) 97 Nasal Cannula 3 09/12/17 12:50 98.6 105 18 122/88 (99) 97 Nasal Cannula 3 09/12/17 12:00 98.0 89 18 118/70 (86) 98 09/12/17 11:44 98.8 90 18 115/68 (84) 98 09/12/17 08:00 98.8 90 18 115/68 (84) 98 I/O 09/12/17 09/12/17 09/12/17 09/13/17 09/13/17 09/13/17 07:00 15:00 23:00 07:00 15:00 23:00 Intake Total 300 ml 1250 ml 350 ml 1730 ml Output Total 10 ml Balance 300 ml 1240 ml 350 ml 1730 ml Intake Oral 300 ml 720 ml IV Total 350 ml 350 ml 1010 ml Other 900 ml Output Estimated Blood Loss 10 ml # Voids 2 3 4 # Bowel Movements 1 examination of the right forearm: dressing in place wound with vessel loops looks clean mild drooping of the ring and middle fingers noted wrist range of motion painful intact sensation distally cultures: MRSA wbc normal Result Diagram: 09/12/1744409/12/17444 Assessment and Plan Assessment and Plan 37 year old female s/p I and D with extensor forearm fasciotomy pod 1/2 plan: dressing changed keep the part elevated finger range of motion exercises will plan for repeat debridement and possible closure on 12/13/17 npo from midnight Eathiraju,Anton MD Sep 13, 2017 07:28
[2017-09-13 08:00] VITALS: BP 121/65; PULSE 73; RESP 20; TEMP 97.7; O2SAT 97
[2017-09-13] MEDS: CEFEPIME INJ 2,000 MG in SODIUM CHLORIDE 0.9% INJ 100 ML IV SCH ×2 (08:00→21:15)
[2017-09-13] MEDS: REMOVE OLD PATCH T-DERMAL SCH (09:00)
[2017-09-13] MEDS: NICOTINE 21 MG/24 HR PATCH T-DERMAL SCH (11:29)
[2017-09-13 11:56] VITALS: BP 114/60; PULSE 76; RESP 20; TEMP 97.8; O2SAT 97
[2017-09-13] MEDS ORDERED: VANCOMYCIN TROUGH ONE (12:45)
--- NOTE | 2017-09-13 15:31 | HHI.PR ---
Subjective Remarks RN reports that the patient is still complaining of pain in her right arm. Otherwise no fevers overnight. Wound culture is growing MRSA. Patient herself says she would like something for sleep. Says that the pain in her right arm is "killing her" despite high doses of IV Dilaudid. The patient apparently provided a urine sample within the last day or so but it is likely not her urine since she has considerable high-dose narcotics being administered to her and the urine was clean. Nursing has reported that she the patient's veins are very difficult, has lost multiple IVs. As a result she has not received 2 doses of her vancomycin today as she was supposed to have. She is also missed a dose of her cefepime. A call has been put out to vascular access and the charge nurse regarding this matter. Objective Vital Signs Date Time Temp Pulse Resp B/P (MAP) Pulse Ox O2 Delivery O2 Flow Rate FiO2 09/13/17 14:04 18 09/13/17 13:21 18 09/13/17 11:56 97.8 76 20 114/60 (78) 97 09/13/17 08:00 97.7 73 20 121/65 (83) 97 09/13/17 07:09 20 09/13/17 04:00 98.5 73 18 105/59 (74) 90 09/12/17 20:00 98.0 20 16 111/59 (76) 92 09/12/17 16:00 98.0 85 18 122/74 (90) 97 I/O 09/12/17 09/12/17 09/12/17 09/13/17 09/13/17 09/13/17 07:00 15:00 23:00 07:00 15:00 23:00 Intake Total 300 ml 1250 ml 350 ml 1730 ml 840 ml Output Total 10 ml 0 ml Balance 300 ml 1240 ml 350 ml 1730 ml 840 ml Intake Oral 300 ml 720 ml 840 ml IV Total 350 ml 350 ml 1010 ml Other 900 ml Output Urine Total 0 ml Estimated Blood Loss 10 ml # Voids 2 3 4 # Bowel Movements 1 Result Diagram: 09/12/17 0445 09/12/17 0445 Objective Remarks Patient lying in bed, no acute distress, right arm is hanging and suspended position with postop dressing. No acute distress. otherwise. HR sounds are rrr, no murmurs, CTA x 2. A/P Assessment and Plan sepsis secondary to forearm cellulitis with possible abscess - continue current abx of vanc and cefepime - MRSA isolated from wound culture - clinically improving Abscess confirmed on ultrasound - D/w hand surgery, post op phase 2; surgery part III in AM - perocecet and IV dilaudid Insomnia prn vistaril DVT prevention - SCDs for now given surgical intervention Martínez Jara MD Sep 13, 2017 15:31
[2017-09-13 16:00] VITALS: BP 114/68; PULSE 78; RESP 16; TEMP 97.5; O2SAT 99
[2017-09-13] MEDS ORDERED: hydrOXYzine PAMOATE 25 MG CAP PO ONE (17:15)
[2017-09-13] MEDS ORDERED: PILL SPLITTER OTHER PRN (17:45)
[2017-09-13] MEDS ORDERED: HYDROmorphone HCL 2 MG TAB PO ONE (17:45)
[2017-09-13 20:00] VITALS: BP 113/68; PULSE 68; RESP 20; TEMP 96.5; O2SAT 99
[2017-09-13 22:53] LABS: VANCOMYCIN TROUGH 26.9 MCG/ML (5.0-10.0)
[2017-09-14] VITALS (7 sets, daily range): BP systolic 113–138; BP diastolic 62–91; PULSE 61–92; RESP 16–20; TEMP 97.4–98; O2SAT 97–98
[2017-09-14] MEDS: VANCOMYCIN 1,000 MG/NS 250 ML IV SCH ×6 (00:59→19:40)
[2017-09-14] MEDS: HYDROmorphone HCL PF 2 MG/ML VIAL IV PUSH PRN ×7 (01:00→22:44)
[2017-09-14] MEDS: oxyCODONE/ACETAMINOPHEN 10 MG/325 MG TAB PO PRN ×4 (02:02→21:18)
[2017-09-14] MEDS: SODIUM CHLOR 0.9% 1000 ML INJ 1,000 ML IV SCH (02:58)
[2017-09-14] MEDS: REMOVE OLD PATCH T-DERMAL SCH (09:00)
[2017-09-14] MEDS: NICOTINE 21 MG/24 HR PATCH T-DERMAL SCH (09:52)
[2017-09-14] MEDS: CEFEPIME INJ 2,000 MG in SODIUM CHLORIDE 0.9% INJ 100 ML IV SCH ×2 (09:53→21:19)
--- NOTE | 2017-09-14 13:41 | HHI.PR ---
Subjective Remarks Saline status post I&D. Patient seen opening up her dressing with dirty fingernails. She is advised to discontinue this practice as it will lead to possible further infection. Plan of care discussed with patient and nursing team Objective Vitals Vital Signs Date Time Temp Pulse Resp B/P (MAP) Pulse Ox O2 Delivery O2 Flow Rate FiO2 09/14/17 11:50 97.9 68 20 126/82 (97) 97 09/14/17 10:56 18 09/14/17 07:30 97.6 61 20 129/79 (96) 98 09/14/17 07:25 18 09/14/17 00:00 97.4 65 18 113/62 (79) 98 09/13/17 20:00 96.5 68 20 113/68 (83) 99 09/13/17 16:00 97.5 78 16 114/68 (83) 99 I/O 09/13/17 09/13/17 09/13/17 09/14/17 09/14/17 09/14/17 07:00 15:00 23:00 07:00 15:00 23:00 Intake Total 1730 ml 840 ml 250 ml 480 ml Output Total 0 ml Balance 1730 ml 840 ml 250 ml 480 ml Intake Oral 720 ml 840 ml 250 ml 480 ml IV Total 1010 ml Output Urine Total 0 ml # Voids 4 3 3 # Bowel Movements 1 1 1 Result Diagram: 09/12/17 0445 09/13/178 Imaging Last Impressions Radius/Ulna X-Ray 09/10/17 1656 Signed Impressions: Service Date/Time: Sunday, September 10, 2017 17:33 - CONCLUSION: 1. Soft tissue swelling of the forearm. No acute bony abnormality. Sandro Jacobs MD Upper Extremity Ultrasound 09/10/17 0000 Signed Impressions: Service Date/Time: Sunday, September 10, 2017 19:38 - CONCLUSION: Normal examination. Sandro Jacobs MD Chest X-Ray 09/10/17 0000 Signed Impressions: Service Date/Time: Sunday, September 10, 2017 19:59 - CONCLUSION: No acute disease. Sandro Jacobs MD Objective Remarks GENERAL: This is a well-nourished, well-developed patient, in no apparent distress. CARDIOVASCULAR: Regular rate and rhythm without murmurs, gallops, or rubs. RESPIRATORY: Clear to auscultation. Breath sounds equal bilaterally. No wheezes , rales, or rhonchi. GASTROINTESTINAL: Abdomen soft, non-tender, nondistended. Normal active bowel sounds MUSCULOSKELETAL: Right upper extremity status post I&D/fasciotomy, open and dressed. Extremities without clubbing, cyanosis, or edema. NEURO: Alert & Oriented x4 to person, place, time, situation. Moves all ext x4 Procedures I&D with fasciitis any of right arm abscess A/P Problem List: (1) Abscess of right forearm ICD Code: L02.413 - Cutaneous abscess of right upper limb Plan: Positive MRSA, continue vancomycin (2) compartment syndrome extensor right forearm Plan: Status post osteotomy, likely for closer later this afternoon Discharge Planning Will need by mouth antibiotics at discharge according to sensitivities, pending hand surgery follow-up Vielka Felix MD Sep 14, 2017 13:41
[2017-09-14] MEDS ORDERED: BACITRACIN TOP OINT 15 GM TUBE ONE (14:25)
[2017-09-14] MEDS ORDERED: LIDOCAINE HCL 2% 50 ML VIAL ONE (14:25)
[2017-09-14] MEDS ORDERED: BUPIVACAINE HCL PF 0.5% 30 ML VIAL ONE (14:25)
[2017-09-14] MEDS ORDERED: NEOMYCIN/POLYMYXIN 1 ML G.U. IRRIGANT ONE (14:25)
[2017-09-14] MEDS ORDERED: MIDAZOLAM HCL 2 MG/2 ML VIAL ONE ×2 (14:57→15:28)
[2017-09-14] MEDS: LACTATED RINGER'S 1000 ML IV PRN (15:33)
[2017-09-14] MEDS ORDERED: SODIUM CHLORID 0.9% 500 ML IV PRN (15:45)
[2017-09-14] MEDS ORDERED: POVIDONE IODINE 5% (ANTISEPSIS KIT) 4 APPLICATIONS EACH NARE PRN (15:45)
[2017-09-14] MEDS ORDERED: INSULIN HUMAN REGULAR 1,000 UNITS/10 ML VIAL SQ PRN (15:45)
[2017-09-14] MEDS ORDERED: METOPROLOL TARTRATE 25 MG TAB PO PRN (15:45)
[2017-09-14] MEDS ORDERED: CHLORHEXIDINE GLUCONATE 2 % 1 PACK (2 CLOTHS) TOPICAL PRN (15:45)
[2017-09-14] MEDS ORDERED: ceFAZolin INJ 1,000 MG VIAL ONE (15:48)
--- NOTE | 2017-09-14 16:23 | PD.OP ---
Operative Report Preoperative Diagnosis: (1) compartment syndrome extensor right forearm (2) Abscess of right forearm Postoperative Diagnosis: (1) Abscess of right forearm (2) compartment syndrome extensor right forearm Procedure: wash, excisional debridement and partial closure right forearm Anesthesia: general Surgeon: Anton Oseguera Receivable Clerk(s): xavi Operation and Findings: no purulence minimal devitalized tissue partial closure of the fasciotomy wound with vessels loops Anton Oseguera MD Sep 14, 2017 16:23
[2017-09-14] MEDS ORDERED: PHARMACY ORDERED LAB ONE (16:45)
[2017-09-14] MEDS ORDERED: *HYDROmorphone PF 1 MG VIAL PERIprocedural Use ONLY ONE (17:01)
[2017-09-14] MEDS ORDERED: LORazepam 2 MG/ML VIAL ONE (17:15)
--- NOTE | 2017-09-14 17:23 | RADRPT ---
EXAM DATE/TIME: 09/14/2017 17:00 [facility] COMPARISON: CHEST PA & LAT, September 10, 2017, 19:59. No previous studies available for comparison. INDICATIONS : Right central line. MEDICAL HISTORY : None. SURGICAL HISTORY : Elbow ENCOUNTER: Initial ACUITY: 1 day PAIN SCORE: 10/10 LOCATION: Right chest FINDINGS: Right IJ central line with tip in the SVC. No significant new focal pleural or parenchymal opacities. No significant pneumothorax. Cardiomediastinal contours are stable. Remainder of exam is unchanged. CONCLUSION: 1. Right IJ central line in the SVC. No pneumothorax. Mati Fox MD on September 14, 2017 at 17:19 Board Certified Radiologist. This report was verified electronically.
[2017-09-14] MEDS ORDERED: *MEPERIDINE 25 MG INJ VIAL PERIprocedural Use ONLY ONE (17:24)
[2017-09-14] MEDS ORDERED: HYDROmorphone HCL PF 1 MG/ML VIAL ONE (17:27)
--- NOTE | 2017-09-14 21:03 | MB ---
cc: JOHANA CAMPOS MD DATE OF CONSULTATION: 09/14/2017 REASON FOR CONSULTATION: Infectious disease. HISTORY OF PRESENT ILLNESS This is a 37 year-old white female who was admitted to the hospital on 09/10, with cellulitis of the right forearm. The patient had just come out of surgery and is sedated. I was unable to get any information from her. The information is obtained from the medical record. The patient presented to the hospital with pain and swelling of the right forearm. She was noted to have been doing yard work and received a puncture wound to the right forearm ten days prior before she came to the emergency department. She then developed pain, swelling and redness, and apparently tried to drain it with a pin. She reportedly had some purulence come from the area and then the pain became worse. She was evaluated in the emergency department and ultrasound was performed of the upper extremity which showed multiple complex fluid and soft tissue collection involving the right posterior wrist and forearm. She has since undergone three different surgical procedures by the hand surgeon with incision and drainage of abscess and extensive compartment release with debridement of necrotic muscle at the right forearm. Culture from the surgery grew out MRSA. The patient has been afebrile and white blood cell count was elevated on admission at 17.1. The white count is now down to 10.6. She has been on intravenous vancomycin. Medical record has been reviewed. PAST MEDICAL HISTORY Lymphoma, cervical cancer, psoriasis. ALLERGIES MORPHINE, PENICILLIN, LATEX, ADHESIVE. MEDICATIONS: 1. Vancomycin. 2. Nicotine patch. 3. Cefepime. 4. Dilaudid p.r.n. SOCIAL HISTORY The patient previously lived in [facility]. She smokes one pack of cigarettes a day. No alcohol. No illicit drug use. FAMILY HISTORY: Noncontributory. REVIEW OF SYSTEMS: Unable to obtain. PHYSICAL EXAMINATION: A well-developed female who is very somnolent. VITAL SIGNS: Temperature 97.5, blood pressure 119/77, heart rate 66, respirations 20. HEENT: The sclerae is nonicteric. Oropharynx: Mucosa is slightly dry. Neck: Supple without adenopathy. Lungs: Clear. Heart: Normal S1-S2. Abdomen: Soft and nontender. Rectal: Not performed. Extremities: No clubbing or cyanosis. The right upper extremity has a surgical dressing in place and only visible aspect of the upper extremity are the fingers which appear warm and moist and have no erythema. The lower extremities have no clubbing, cyanosis or edema. Neuro: Unable to assess. Psych: Unable to assess. LABORATORY DATA WBC 10.6, platelets 275, 72% neutrophils, hemoglobin 10.1, creatinine 0.75, estimated GFR 86. IMPRESSION Right upper extremity forearm abscess, cellulitis and compartment syndrome. Patient is status post I&D and release of compartment syndrome, and also a fasciotomy, and partial closure of the right forearm. Culture with MRSA. RECOMMENDATIONS Continue the intravenous vancomycin for now and monitor the patient's clinical status. Given the extent of the injury and infection, I recommend continuing antibiotics at least for a couple of weeks. The vancomycin is being managed by pharmacy. Thank you this consultation. The patient's progress will be monitored. Johana Campos MD FD/BABAR /5:47 PM /8:41 PM MTDDavid
[2017-09-15] MEDS: HYDROmorphone HCL PF 2 MG/ML VIAL IV PUSH PRN ×4 (01:50→13:28)
[2017-09-15] MEDS: VANCOMYCIN 1,000 MG/NS 250 ML IV SCH ×4 (03:15→11:00)
[2017-09-15] MEDS: oxyCODONE/ACETAMINOPHEN 10 MG/325 MG TAB PO PRN ×2 (03:15→10:09)
[2017-09-15 04:00] VITALS: BP 109/75; PULSE 55; RESP 16; TEMP 97.3; O2SAT 95
[2017-09-15] MEDS ORDERED: Central Line Short Term Adult 7Fr or larger PRN NS Lock Flush IV FLUSH (04:00)
[2017-09-15 08:00] VITALS: BP 124/60; PULSE 55; RESP 18; TEMP 98.2; O2SAT 99
--- NOTE | 2017-09-15 08:12 | MP ---
cc: AISHA PATRICK MD DATE OF SURGERY September 14, 2017 PREOPERATIVE DIAGNOSIS Abscess right forearm status post fasciotomy. POSTOPERATIVE DIAGNOSIS Abscess right forearm status post fasciotomy. PROCEDURE Exploration, wash, excision, debridement and partial closure right forearm fasciotomy wound. SURGEON Dr. Patrick ANESTHESIA General. TOURNIQUET TIME No tourniquet was used. CONDITION To PACU stable. INDICATIONS FOR PROCEDURE The patient is a 37-year-old female with right forearm abscess status post incision and drainage and forearm fasciotomy of the extensor compartment. She is also status post multiple debridements, was brought in today for repeat debridement and partial closure. The cultures grew MRSA. The patient was brought to the operating room under general anesthesia. The right upper extremity was thoroughly prepped and draped. Excisional debridement of devitalized tissue was carried out. There was no purulent material noted within the forearm fasciotomy wound. Debridement of skin, subcutaneous and fascia was carried out with minimal devitalized tissue noted. Thorough wash was given using normal saline mixed with irrigant. Partial closure of the wound was carried out at the distal aspect. The vessel loops previously placed were tied in proximally. Xeroform and bacitracin dressing applied. Bulky hand dressing was applied which was held in place by Sof-Rol and bias hand wrap. She had good distal circulation at the end of procedure. The patient was recovered and sent to Recovery in stable condition. Plan will be to bring the patient tomorrow for repeat wash and possible closure of the fasciotomy wound. Aisha Patrick MD SE/JUNO /4:25 PM /7:56 AM BRUCE
[2017-09-15] MEDS ORDERED: Central Line Short Term Adult 7Fr or larger Daily NS Lock Flush IV FLUSH SCH (09:00)
[2017-09-15] MEDS: REMOVE OLD PATCH T-DERMAL SCH (09:00)
[2017-09-15] MEDS: CEFEPIME INJ 2,000 MG in SODIUM CHLORIDE 0.9% INJ 100 ML IV SCH (09:08)
[2017-09-15] MEDS: NICOTINE 21 MG/24 HR PATCH T-DERMAL SCH (09:08)
[2017-09-15] MEDS ORDERED: DEXAMETHASONE SOD PHOS 4 MG/ML VIAL ONE (10:38)
[2017-09-15] MEDS ORDERED: MIDAZOLAM HCL 5 MG/ML VIAL (1 ML) ONE (10:38)
[2017-09-15] MEDS: LACTATED RINGER'S 1000 ML IV PRN (10:40)
[2017-09-15] MEDS ORDERED: BACITRACIN TOP OINT 15 GM TUBE ONE (10:52)
[2017-09-15] MEDS ORDERED: BUPIVACAINE HCL PF 0.5% 30 ML VIAL ONE (10:52)
[2017-09-15] MEDS ORDERED: NEOMYCIN/POLYMYXIN 1 ML G.U. IRRIGANT ONE (10:53)
[2017-09-15] MEDS ORDERED: LIDOCAINE HCL 2% 50 ML VIAL ONE (10:53)
--- NOTE | 2017-09-15 11:33 | PD.OP ---
Operative Report Preoperative Diagnosis: (1) fasciotomy wound right forearm Postoperative Diagnosis: (1) fasciotomy wound right forearm Procedure: wash, excisional debridement and closure fasciotomy wound right forearm Anesthesia: general Surgeon: Anton Oseguera Sheet Rock Sander(s): xavi Operation and Findings: no purulence minimal devitalized tissue complete closure with packing Anton Oseguera MD Sep 15, 2017 11:33
[2017-09-15 11:35] VITALS: PULSE 66
[2017-09-15] MEDS ORDERED: HYDROmorphone HCL PF 1 MG/ML VIAL ONE (12:14)
[2017-09-15 12:26] VITALS: BP 133/76; PULSE 58; TEMP 97.5; O2SAT 94
--- NOTE | 2017-09-15 13:20 | MP ---
cc: ANTON PATRICK MD DATE OF SURGERY September 15, 2017 PREOPERATIVE DIAGNOSIS Fasciotomy wound right forearm. POSTOPERATIVE DIAGNOSIS Fasciotomy wound right forearm. PROCEDURE Wash, excisional debridement and closure of forearm fasciotomy wound right forearm. SURGEON Dr. Patrick ANESTHESIA General. ESTIMATED BLOOD LOSS Minimal. TOURNIQUET TIME No tourniquet was used. CONDITION To PACU stable. INDICATIONS FOR PROCEDURE The patient is a 37-year-old female with history of right forearm abscess status post incision and drainage and extensor fasciotomy. The patient has had also multiple debridements, was brought in today for wash, debridement, possible closure. She was explained the risks and benefits of the procedure. The patient was brought to the operating room. Under general anesthesia the right upper extremity was thoroughly prepped and draped. Previously placed vessel loops and kay were removed. Minimal devitalized tissue was noted which was debrided from the skin, subcutaneous tissue and the fascia. No purulent material was noted. Thorough wash of the wound was carried out using normal saline mixed with irrigant. About 1 liter of solution was used. The skin was then approximated using kay. At the midportion of the fasciotomy wound packing of the wound was carried out with 1/4-inch Iodoform packing material. The compartments were supple after the end of closure. She had good distal circulation at the end of the procedure. Xeroform and bacitracin dressing were applied. About 7cc of local anesthesia containing 2% lidocaine and 0.5 % Marcaine mixture was injected across the incision site. Bulky hand dressing was applied which was held in place by Sof-Rol and bias hand wrap. She was recovered and sent to her room in stable condition. PLAN The plan will be to continue with antibiotics and remove the packing tomorrow and possible discharge over the weekend. Anton Patrick MD SE/JUNO /11:34 AM /1:03 PM BRUCE
[2017-09-15] MEDS ORDERED: BACITRACIN TOP OINT 15 GM TUBE TOPICAL PRN (13:30)
[2017-09-15] MEDS ORDERED: LIDOCAINE HCL 2% 50 ML VIAL PRN (13:30)
[2017-09-15] MEDS ORDERED: BUPIVACAINE HCL PF 0.5% 30 ML VIAL PRN (13:30)
[2017-09-15] MEDS ORDERED: NEOMYCIN/POLYMYXIN 1 ML G.U. IRRIGANT IRRIGATION PRN (13:30)
--- NOTE | 2017-09-15 14:05 | HHI.PR ---
Objective Vitals Vital Signs Date Time Temp Pulse Resp B/P (MAP) Pulse Ox O2 Delivery O2 Flow Rate FiO2 09/15/17 12:26 97.5 58 14 133/76 (95) 94 Room Air 09/15/17 12:10 60 14 124/71 (88) 93 Room Air 09/15/17 11:55 62 14 127/73 (91) 94 Room Air 09/15/17 11:35 66 09/15/17 11:35 97.5 66 14 111/65 (80) 94 Room Air 09/15/17 11:33 18 09/15/17 10:45 98.3 64 16 137/77 (97) 95 09/15/17 09:42 18 09/15/17 08:00 98.2 55 18 124/60 (81) 99 09/15/17 04:00 97.3 55 16 109/75 (86) 95 09/14/17 23:54 98.0 92 16 138/91 (107) 97 09/14/17 20:00 98.0 76 18 127/73 (91) 97 09/14/17 18:20 97.7 65 16 115/73 (87) 95 Nasal Cannula 3 09/14/17 17:15 72 14 135/86 (102) 98 Nasal Cannula 2 09/14/17 17:00 72 14 112/79 (90) 96 Nasal Cannula 2 09/14/17 16:45 68 14 108/70 (83) 95 Nasal Cannula 2 09/14/17 16:30 97.5 67 14 111/64 (80) 98 Nasal Cannula 2 09/14/17 16:30 67 09/14/17 15:38 97.7 75 16 114/77 (89) 94 09/14/17 14:39 97.7 78 18 114/77 (89) I/O 09/14/17 09/14/17 09/14/17 09/15/17 09/15/17 09/15/17 07:00 15:00 23:00 07:00 15:00 23:00 Intake Total 480 ml 2330 ml 250 ml 1200 ml Balance 480 ml 2330 ml 250 ml 1200 ml Intake Oral 480 ml 580 ml 0 ml IV Total 1350 ml 250 ml 1000 ml Other 400 ml 200 ml # Voids 3 6 4 # Bowel Movements 1 0 0 Result Diagram: 09/12/17 0445 09/13/17 1958 Objective Remarks GENERAL: This is a well-nourished, well-developed patient, in no apparent distress. CARDIOVASCULAR: Regular rate and rhythm without murmurs, gallops, or rubs. RESPIRATORY: Clear to auscultation. Breath sounds equal bilaterally. No wheezes , rales, or rhonchi. GASTROINTESTINAL: Abdomen soft, non-tender, nondistended. Normal active bowel sounds MUSCULOSKELETAL: Right upper extremity status post I&D/fasciotomy, open and dressed. Extremities without clubbing, cyanosis, or edema. NEURO: Alert & Oriented x4 to person, place, time, situation. Moves all ext x4 Procedures I&D with fasciitis any of right arm abscess A/P Problem List: (1) Abscess of right forearm ICD Code: L02.413 - Cutaneous abscess of right upper limb Plan: Positive MRSA, continue vancomycin (2) compartment syndrome extensor right forearm Plan: Status post fasciotomy Status post closure this a.m. Continue IV antibiotics likely home over the weekend Pain uncontrolled, continue IV narcotics and add IV Toradol Discharge Planning Will need by mouth antibiotics at discharge according to sensitivities, pending hand surgery follow-up Likely discharge 1-2 days Vielka Felix MD Sep 15, 2017 14:05
[2017-09-15] MEDS ORDERED: KETOROLAC TROMETHAMINE 60 MG/2 ML (IM) VIAL IM PRN (15:00)
--- NOTE | 2017-09-15 15:28 | HHI.IDPN ---
Note Infectious Disease Note Patient has notes pain in the r.arm. Also complains of pain in the left forearm at IV sites. Afebrile. Denies chills. Patient was admitted to the hospital on 09/10, with cellulitis of the right forearm. Post incision and drainage abscess and extensive compartment release with debridement of necrotic muscle at the right forearm. Culture from the surgery grew out MRSA. PAST MEDICAL HISTORY Lymphoma, cervical cancer, psoriasis. ALLERGIES MORPHINE, PENICILLIN, LATEX, ADHESIVE. MEDICATIONS: Vancomycin. Current Medications Medications (Trade) Dose Ordered Sig/Love Route PRN Reason Start Time Stop Time Status Last Admin Dose Admin Pharmacy Profile Note ml @ 0 mls/hr UNSCH OTHER 09/10/17 20:00 Hydromorphone HCl (Dilaudid Pf Inj) 1 mg Q3HR PRN IV PUSH pain uncontrolled by toradol 09/12/17 09:30 09/15/17 13:28 Nicotine (Habitrol 21 Mg Patch.24 Hr) 1 patch DAILY T-DERMAL 09/12/17 15:00 09/15/17 09:08 Miscellaneous Information 1 DAILY T-DERMAL 09/13/17 09:00 09/15/17 09:00 Hydroxyzine Pamoate (Vistaril) 50 mg HS PRN PO insomnia 09/13/17 15:45 Miscellaneous (Pill Splitter) 1 ea UNSCH PRN OTHER SEE LABEL COMMENTS 09/13/17 17:45 Lactated Ringer's 1,000 ml @ 30 mls/hr Q24H PRN IV SEE LABEL COMMENTS 09/14/17 15:45 09/17/17 15:44 09/15/17 10:40 Sodium Chloride 500 ml @ 30 mls/hr [id number] PRN IV SEE LABEL COMMENTS 09/14/17 15:45 09/17/17 15:44 Metoprolol Tartrate (Lopressor) 25 mg FROZEN MEAT CUTTER PRN PO SEE LABEL COMMENTS 09/14/17 15:45 09/17/17 15:44 Povidone Iodine (Betadine 5% Antisepsis Kit) 1 applic FROZEN MEAT CUTTER PRN EACH NARE SEE LABEL COMMENTS 09/14/17 15:45 09/17/17 15:44 Chlorhexidine Gluconate (Chlorhexidine 2% Cloth) 3 pack FROZEN MEAT CUTTER PRN TOPICAL SEE LABEL COMMENTS 09/14/17 15:45 09/17/17 15:44 Insulin Human Regular (NovoLIN R INJ) See Protocol Table ... FROZEN MEAT CUTTER PRN SQ SEE PROTOCOL TABLE 09/14/17 15:45 09/17/17 15:44 Vancomycin HCl 1000 mg/Sodium Chloride 250 ml @ 250 mls/hr Q8H IV 09/15/17 03:00 09/15/17 11:00 Sodium Chloride (NS Flush) DAILY IV FLUSH 09/15/17 09:00 09/15/17 09:00 Sodium Chloride (NS Flush) UNSCH PRN IV FLUSH SEE PROTOCOL TABLE 09/15/17 04:00 Ketorolac Tromethamine (Toradol Inj) 15 mg Q6H PRN IM pain 09/15/17 15:00 09/17/17 14:59 09/15/17 15:04 OBJECTIVE: Vital Signs Date Time Temp Pulse Resp B/P (MAP) Pulse Ox O2 Delivery O2 Flow Rate FiO2 09/15/17 14:21 18 09/15/17 14:21 18 09/15/17 14:21 18 09/15/17 14:20 18 09/15/17 14:20 18 09/15/17 14:20 18 09/15/17 14:20 18 09/15/17 14:20 19 09/15/17 14:19 18 09/15/17 14:19 18 09/15/17 12:26 97.5 58 14 133/76 (95) 94 Room Air 09/15/17 12:10 60 14 124/71 (88) 93 Room Air 09/15/17 11:55 62 14 127/73 (91) 94 Room Air 09/15/17 11:35 66 09/15/17 11:35 97.5 66 14 111/65 (80) 94 Room Air 09/15/17 11:33 18 09/15/17 10:45 98.3 64 16 137/77 (97) 95 09/15/17 08:00 98.2 55 18 124/60 (81) 99 09/15/17 04:00 97.3 55 16 109/75 (86) 95 09/14/17 23:54 98.0 92 16 138/91 (107) 97 09/14/17 20:00 98.0 76 18 127/73 (91) 97 09/14/17 18:20 97.7 65 16 115/73 (87) 95 Nasal Cannula 3 09/14/17 17:15 72 14 135/86 (102) 98 Nasal Cannula 2 09/14/17 17:00 72 14 112/79 (90) 96 Nasal Cannula 2 09/14/17 16:45 68 14 108/70 (83) 95 Nasal Cannula 2 09/14/17 16:30 97.5 67 14 111/64 (80) 98 Nasal Cannula 2 09/14/17 16:30 67 09/14/17 15:38 97.7 75 16 114/77 (89) 94 Laboratory Tests Test 09/13/17 19:58 Creatinine 0.75 MG/DL Estimat Glomerular Filtration Rate 86 ML/MIN PHYSICAL EXAMINATION: GENERAL: Awake and alert. HEENT: The sclerae is nonicteric. Oropharynx: Mucosa is slightly dry. Neck: Supple without adenopathy. Lungs: Clear. Heart: Normal S1-S2. Abdomen: Soft and nontender. Extremities: No clubbing or cyanosis. The right upper extremity has a surgical dressing in place. Neuro: Non focal. Psych: Calm and cooperative. IMPRESSION Right upper extremity forearm abscess, cellulitis and compartment syndrome. MRSA. RECOMMENDATIONS Continue the intravenous vancomycin for now and change to PO clindamycin 300mg tid x 2 weeks for discharge. Okay to discharge when cleared by hand surgeon. Zen Abebe MD Sep 15, 2017 15:28
[2017-09-15 15:36] VITALS: RESP 18
== END 2017-09-15 16:55 | disposition left against medical advice (07) | DRG 580 ==
LOC: PHED 14:45 → PHEDA 18:35 → PH3B 20:16
PROVIDERS: ADMIT Hospitalist; ATTEND Hospitalist
PROC: 0LB50ZZ Excision of Right Lower Arm and Wrist Tendon, Open Approach (ICD-10-PCS; 2017-09-11)
PROC: 0KN90ZZ Release Right Lower Arm and Wrist Muscle, Open Approach (ICD-10-PCS; 2017-09-11)
PROC: 0KB90ZZ Excision of Right Lower Arm and Wrist Muscle, Open Approach (ICD-10-PCS; principal; 2017-09-11 10:44)
PROC: 0KB90ZZ Excision of Right Lower Arm and Wrist Muscle, Open Approach (ICD-10-PCS; 2017-09-12)
PROC: 0LB50ZZ Excision of Right Lower Arm and Wrist Tendon, Open Approach (ICD-10-PCS; 2017-09-12)
PROC: 0JDG0ZZ Extraction of Right Lower Arm Subcutaneous Tissue and Fascia, Open Approach (ICD-10-PCS; 2017-09-14)
PROC: 0JQG0ZZ Repair Right Lower Arm Subcutaneous Tissue and Fascia, Open Approach (ICD-10-PCS; 2017-09-14)
DX: L02.413 Cutaneous abscess of right upper limb (principal); M79.A11 Nontraumatic compartment syndrome of right upper extremity; L03.113 Cellulitis of right upper limb; M65.831 Other synovitis and tenosynovitis, right forearm; F17.210 Nicotine dependence, cigarettes, uncomplicated; S51.831A Puncture wound without foreign body of right forearm, initial encounter; Z85.41 Personal history of malignant neoplasm of cervix uteri; Z85.72 Personal history of non-Hodgkin lymphomas; W45.8XXA Other foreign body or object entering through skin, initial encounter; Y93.89 Activity, other specified; Y92.89 Other specified places as the place of occurrence of the external cause; L40.9 Psoriasis, unspecified; N63.0 Unspecified lump in unspecified breast; B95.62 Methicillin resistant Staphylococcus aureus infection as the cause of diseases classified elsewhere; R11.0 Nausea; G47.00 Insomnia, unspecified
CPT/HCPCS: 36556; 71010; 71020; 73090; 76882; 76937; 80053; 80202; 80307; 82565; 85025; 86403; 87015; 87040; 87070; 87102; 87116; 87147; 87186; 87205; 87206; 88305; 93971; 96365; 96375; J0690; J0692; J1100; J1170; J1885; J2060; J2175; J2250; J3370; J7030; J7040; J7050; J7120; Q0177

== ENCOUNTER 2017-09-22 09:44 | Emergency (ER) | payer SELFPAY ==
[~2017-09-22] VITALS: Ht 162.6 cm; Wt 73.0 kg
[2017-09-22 09:56] VITALS: BP 116/56; PULSE 76; RESP 18; TEMP 98.8; O2SAT 100
[2017-09-22] MEDS ORDERED: IBUPROFEN 600 MG TAB PO ONE (10:45)
[2017-09-22] MEDS ORDERED: CLINDAMYCIN INJ 900 MG in SODIUM CHLORIDE 0.9% INJ 100 ML IV ONE (10:45)
[2017-09-22] MEDS ORDERED: CLIN150C14 PO (11:11)
--- NOTE | 2017-09-22 11:12 | PD ---
HPI Chief Complaint: Wound/Suture/Staple Re-Check Time Seen by Provider: 10:10 Travel History International Travel<30 days: No Contact w/Intl Traveler<30days: No Traveled to known affect area: No History of Present Illness HPI Patient is 37 years old and complains of pain in the right forearm. She was seen here one week prior and underwent surgical drainage/debridement by Dr. Oseguera. Patient left the hospital AMA. She did not take antibiotics. She arrives complaining of pain in the right forearm and hand. Pain is constant severe she states. She denies fever. She also complains of pain in the right hand. PFSH Past Medical History Arthritis: Yes (psoriatic) Cancer: Yes (STAGE II CERVICAL, lymphoma) Cardiovascular Problems: No Diminished Hearing: No Endocrine: Yes (HYPOGLYCEMIA) Genitourinary: No Psychiatric: No Reproductive: No Respiratory: No Integumentary: Yes (recent skin absess drained) Immunizations Current: Yes Radiation Therapy: Yes Seizures: Yes Influenza Vaccination: No ?: Not LMP: 09/2017 : 9 Para: 2 Miscarriage: 7 Dilation and Curettage (D&C): Yes Past Surgical History Gynecologic Surgery: Yes (cervical scraping) Other Surgery: Yes (LYMPHOMA RIGHT LEG) Social History Alcohol Use: No Tobacco Use: Yes (1 ppd) Substance Use: No Allergies-Medications (Allergen,Severity, Reaction): Coded Allergies: adhesive (Verified Allergy, Severe, Rash, 09/22/17) morphine (Verified Allergy, Severe, pt. denies, 09/22/17) penicillin G (Verified Allergy, Severe, Anaphylaxis, 09/22/17) Reported Meds & Prescriptions Reported Meds & Active Scripts Active Clindamycin (Clindamycin HCl) 150 Mg Cap 450 Mg PO Q8HR 10 Days Review of Systems Except as stated in HPI: all other systems reviewed are Neg General / Constitutional: No: Fever Skin: Positive Lesions Physical Exam Narrative GENERAL: 37-year-old female well-nourished well-developed pleasant SKIN: Warm and dry. Multiple raised lesions about the left arm/areas of ecchymosis and tenderness concerning for IVDA. R forearm with approx 12 cm surgical incision with kay intact without erythema, induration or warmth. TPP overlying the middle portion of the incision. No purulent discharge. No expressible discharge. HEAD: Atraumatic. Normocephalic. EYES: Pupils equal and round. No scleral icterus. No injection or drainage. ENT: No nasal bleeding or discharge. Mucous membranes pink and moist. NECK: Trachea midline. No JVD. CARDIOVASCULAR: No murmur. Regular rhythm. Rate approximately 90. RESPIRATORY: No accessory muscle use. Clear to auscultation. Breath sounds equal bilaterally. GASTROINTESTINAL: Abdomen soft, non-tender, nondistended. Hepatic and splenic margins not palpable. MUSCULOSKELETAL: Extremities without clubbing, cyanosis, or edema. No obvious deformities. NEUROLOGICAL: Awake and alert. No obvious cranial nerve deficits. Motor grossly within normal limits. Five out of 5 muscle strength in the arms and legs. Normal speech. PSYCHIATRIC: Appropriate mood and affect; insight and judgment normal. Data Data Last Documented VS Vital Signs Date Time Temp Pulse Resp B/P (MAP) Pulse Ox O2 Delivery O2 Flow Rate FiO2 09/22/17 12:29 18 09/22/17 09:56 98.8 76 116/56 (76) 100 VS reviewed Orders Orders Ibuprofen (Motrin) (09/22/17 10:45) Basic Metabolic Panel (Bmp) (09/22/17 10:43) Complete Blood Count With Diff (09/22/17 10:43) Blood Culture (09/22/17 10:43) Wound Culture And Gram Stain (09/22/17 10:43) Iv Access Insert/Monitor (09/22/17 10:43) Clindamycin Inj (Cleocin Inj) (09/22/17 10:45) Acetamin-Hydrocod 325-5 Mg ([place] 5-325 (09/22/17 11:15) Clindamycin Inj (Cleocin Inj) (09/22/17 11:45) Ondansetron Odt (Zofran Odt) (09/22/17 12:30) Ed Discharge Order (09/22/17 12:42) Labs Laboratory Tests Test 09/22/17 12:10 White Blood Count 15.3 TH/MM3 Red Blood Count 4.33 MIL/MM3 Hemoglobin 11.7 GM/DL Hematocrit 35.0 % Mean Corpuscular Volume 80.8 FL Mean Corpuscular Hemoglobin 26.9 PG Mean Corpuscular Hemoglobin Concent 33.3 % Red Cell Distribution Width 14.6 % Platelet Count 281 TH/MM3 Mean Platelet Volume 7.1 FL Neutrophils (%) (Auto) 77.6 % Lymphocytes (%) (Auto) 18.3 % Monocytes (%) (Auto) 3.5 % Eosinophils (%) (Auto) 0.4 % Basophils (%) (Auto) 0.2 % Neutrophils # (Auto) 11.9 TH/MM3 Lymphocytes # (Auto) 2.8 TH/MM3 Monocytes # (Auto) 0.5 TH/MM3 Eosinophils # (Auto) 0.1 TH/MM3 Basophils # (Auto) 0.0 TH/MM3 CBC Comment DIFF FINAL Differential Comment Blood Urea Nitrogen 12 MG/DL Creatinine 0.80 MG/DL Random Glucose 92 MG/DL Calcium Level 8.5 MG/DL Sodium Level 138 MEQ/L Potassium Level 3.8 MEQ/L Chloride Level 105 MEQ/L Carbon Dioxide Level 25.0 MEQ/L Anion Gap 8 MEQ/L Estimat Glomerular Filtration Rate 80 ML/MIN MDM Medical Decision Making Medical Screen Exam Complete: Yes Emergency Medical Condition: Yes Medical Record Reviewed: Yes Differential Diagnosis Cellulitis, Surgical Infection, Abscess, Sepsis Narrative Course The patient has a surgical wound is noted and may have a small cellulitic component. Pt left the hospital AGAINST MEDICAL ADVICE and did not fill an antibiotic prescription. Possible surgical wound could be infected is due to noncompliance with physician recommendations. Pt refused placement of an IV in the left forearm after multiple providers attempted including ultrasound guidance. Acquisition of IV was complicated by patient moving during the attempt. I tried in the left external jugular, also complicated by patient movement, and unfortunately was unable to access. Patient received Motrin followed by Lortab. Case d/w Dr Oseguera with hand surgery. I was advised to remove the central 3 kay. Since the patient is refusing IV access and moves uncontrollably during the attempts to obtain it optimization of her hospital/ER course is challenging. We can start clinda here. Lab will attempt to draw blood. Lab work reveals CBC & BMP Diagram 09/22/17 12:10 Calcium Level 8.5 White cell count of 15 noted. It is considered less likely c/w sepsis cellulitis without tachycardia or fever. No erythema, induration or discharge from R forearm. Three kay were removed here. Wound remained intact. No discharge. Follow up with Dr Oseguera. Wound dressed with non-adherent dressing, dressing and coban. Diagnosis Primary Impression: Pain at surgical incision Referrals: Anton Oseguera MD Med/Other Pt SpecificInfo: Prescription(s) given Scripts Clindamycin (Clindamycin) 150 Mg Cap 450 MG PO Q8HR for Infection for 10 Days, CAP 0 Refills Prov: Arturo Sandoval MD 09/22/17 Disposition: 01 DISCHARGE HOME Condition: Arturo Leung MD Sep 22, 2017 11:12
[2017-09-22] MEDS ORDERED: ACETAMINOPHEN/HYDROcodone 325 MG/5 MG TAB PO ONE (11:15)
[2017-09-22] MEDS ORDERED: CLINDAMYCIN PHOS 900 MG/6 ML VIAL IM ONE (11:30)
[2017-09-22] MEDS ORDERED: CLINDAMYCIN PHOS 600 MG/4 ML VIAL IM ONE (11:45)
[2017-09-22 12:17] LABS: AUTOMATED NEUTROPHIL # 11.9 TH/MM3 (1.8-7.7); BASOPHIL % 0.2 % (0.0-2.0); EOSINOPHIL # 0.1 TH/MM3 (0-0.4); EOSINOPHIL % 0.4 % (0.0-4.0); HEMOGLOBIN 11.7 GM/DL (11.6-15.3); LYMPH % 18.3 % (9.0-44.0); LYMPHOCYTE # 2.8 TH/MM3 (1.0-4.8); MEAN CELL VOLUME 80.8 FL (80.0-100.0); MEAN CORPUSCULAR HEMOGLOBIN 26.9 PG (27.0-34.0); MEAN CORPUSCULAR HGB CONC 33.3 % (32.0-36.0); MEAN PLATELET VOLUME 7.1 FL (7.0-11.0); MONO % 3.5 % (0.0-8.0); MONOCYTE # 0.5 TH/MM3 (0-0.9); NEUT % 77.6 % (16.0-70.0); PLATELET COUNT 281 TH/MM3 (150-450); RED BLOOD COUNT 4.33 MIL/MM3 (4.00-5.30); RED CELL DISTRIBUTION WIDTH 14.6 % (11.6-17.2); WHITE BLOOD COUNT 15.3 TH/MM3 (4.0-11.0)
[2017-09-22 12:28] LABS: CALCIUM 8.5 MG/DL (8.5-10.1)
[2017-09-22 12:29] VITALS: RESP 18
[2017-09-22] MEDS ORDERED: ONDANSETRON ODT 4 MG TAB PO ONE (12:30)
[2017-09-22 12:32] LABS: CREATININE 0.8 MG/DL (0.50-1.00)
[2017-09-22 12:49] VITALS: BP 120/67
== END 2017-09-22 13:04 | disposition home or self-care (01) ==
LOC: PHED 09:44
DX: G89.18 Other acute postprocedural pain (principal); F17.210 Nicotine dependence, cigarettes, uncomplicated
CPT/HCPCS: 80048; 85025; 86403; 87040; 87070; 87205; 96372

== ENCOUNTER 2017-12-01 17:26 | Emergency (ER) | payer SELFPAY ==
[~2017-12-01 17:26] MED LIST changes: +CLIN150C14 PO; -IBUP-232 PO; -PERC5TAB12 PO; -SILV1CRE20 TOPICAL
[2017-12-01 17:35] VITALS: BP 128/73; PULSE 99; RESP 18; TEMP 99.5; O2SAT 99
[2017-12-01 17:59] VITALS: BP 161/94; PULSE 117; RESP 20; TEMP 99.1; O2SAT 97
--- NOTE | 2017-12-01 18:09 | PD ---
HPI Chief Complaint: Skin Problem Time Seen by Provider: 17:59 Travel History International Travel<30 days: No Contact w/Intl Traveler<30days: No Traveled to known affect area: No History of Present Illness HPI 29-year-old female presents to the emergency department for evaluation of abscess the left forearm. She states she was stung by 2 bees 3 days ago on the left arm. She states she woke up this morning and noticed a large abscess with drainage. Patient states she had clindamycin left over home and took it for 3 days. She states she did have a red streak that extended up to the axilla, but that has resolved. Patient states she has run fevers at home up to 101. She is afebrile at this time. Patient denies any history of IV drug use. She denies any chance of . No exacerbating or alleviating factors. Moderate severity. PFSH Past Medical History Arthritis: Yes (psoriatic) Cancer: Yes (STAGE II CERVICAL, lymphoma) Cardiovascular Problems: No Diminished Hearing: No Endocrine: Yes (HYPOGLYCEMIA) Gastrointestinal Disorders: No Genitourinary: No Psychiatric: No Reproductive: No Respiratory: No Integumentary: Yes (recent skin absess drained) Immunizations Current: Yes Radiation Therapy: Yes Seizures: Yes ?: Not : 9 Para: 2 Miscarriage: 7 Dilation and Curettage (D&C): Yes Past Surgical History Gynecologic Surgery: Yes (cervical scraping) Other Surgery: Yes (LYMPHOMA RIGHT LEG) Social History Alcohol Use: No Tobacco Use: Yes (1 ppd) Substance Use: No Allergies-Medications (Allergen,Severity, Reaction): Coded Allergies: adhesive (Verified Allergy, Severe, Rash, 12/01/17) penicillin G (Verified Allergy, Severe, Anaphylaxis, 12/01/17) Reported Meds & Prescriptions Reported Meds & Active Scripts Active Clindamycin (Clindamycin HCl) 150 Mg Cap 450 Mg PO Q8HR 10 Days Review of Systems Except as stated in HPI: all other systems reviewed are Neg Physical Exam Narrative GENERAL: Well-nourished, well-developed female patient, ambulatory. Afebrile. SKIN: Focused skin assessment warm/dry. Patient has large 5 cm x 4 cm fluctuant abscess to the left forearm with surrounding erythema that measures approximately 15 cm x 10 cm. Area is tender to palpation. HEAD: Normocephalic. Atraumatic. EYES: No scleral icterus. No injection or drainage. NECK: Supple, trachea midline. No JVD or lymphadenopathy. CARDIOVASCULAR: Regular rate and rhythm without murmurs, gallops, or rubs. RESPIRATORY: Breath sounds equal bilaterally. No accessory muscle use. Lungs sounds clear to auscultation. GASTROINTESTINAL: Abdomen soft, non-tender, nondistended. MUSCULOSKELETAL: No cyanosis, or edema. BACK: Nontender without obvious deformity. No CVA tenderness. Data Data Last Documented VS Vital Signs Date Time Temp Pulse Resp B/P (MAP) Pulse Ox O2 Delivery O2 Flow Rate FiO2 12/01/17 17:59 99.1 117 20 161/94 (116) 97 Room Air Orders Orders Clindamycin Inj (Cleocin Inj) (12/01/17 18:15) Ibuprofen (Motrin) (12/01/17 18:15) Lidocai-Epi 1%-1:100,000 Inj (Xylocaine- (12/01/17 18:15) Wound Culture And Gram Stain (12/01/17 18:08) Lidocai-Epi 1%-1:100,000 Inj (Xylocaine- (12/01/17 18:16) MDM Medical Decision Making Medical Screen Exam Complete: Yes Emergency Medical Condition: Yes Medical Record Reviewed: Yes Differential Diagnosis Abscess versus cellulitis versus sepsis Narrative Course 29-year-old female presents to the emergency department for evaluation of abscess the left forearm that started today, but reports he states 3 days ago. Patient does verbal consent for incision and drainage. She is given clindamycin 600 mg IM. Patient is given ibuprofen 600 mg by mouth. Patient will be discharged with a prescription for Bactrim, Keflex. She is instructed on proper wound care. Patient is to return in 48 hours for recheck. She is return sooner for any acute worsening of symptoms. I discussed the case with my attending physician, Dr. Flores, who agrees with plan and disposition. The patient was discharged in stable condition with instructions, including return instructions and follow up instructions. Procedures Procedure Narrative INCISION AND DRAINAGE OF ABSCESS: The area was prepped and was sterilely draped. A subcutaneous wheal of 1% Xylocaine with epinephrine with a total number 6 mL was used to anesthetize the area. The area was properly anesthetized. A number 11 scalpel was used to make a 1 -cm incision across the area of the abscess. Cultures were obtained. The abscess was drained an irrigated with normal saline. Quarter inch iodoform packing was placed in the wound. Sterile dressing applied. Patient advised to have packing removed in two days. Diagnosis Primary Impression: Abscess of left forearm Patient Instructions: Abscess (ED), Abscess Incision and Drainage (DC), General Instructions Additional Instructions: Clean abscess twice daily with soap and water and apply [id number] antibiotic ointment. Keep clean and dry. Take antibiotics as directed until gone. Return in 48 hours for packing removal and recheck. Return sooner for any acute worsening of symptoms. Take ibuprofen as directed as needed for [id number] pain. Take Lortab as directed as needed for moderate to severe pain. No swimming or hot tubs until healed. Med/Other Pt SpecificInfo: Prescription(s) given Scripts Hydrocodone-Acetaminophen (Brohman) 5 Mg-325 Mg Tab 1 TAB PO Q6H Y for PAIN, #8 TAB 0 Refills Prov: Anayeli Ha 12/01/17 Ibuprofen (Ibuprofen) 600 Mg Tab 600 MG PO TID Y for PAIN SCALE 1 TO 10, #21 TAB 0 Refills Prov: Anayeli Ha 12/01/17 Cephalexin (Keflex) 500 Mg Cap 500 MG PO Q6H for Infection for 10 Days, #40 CAP 0 Refills Prov: Anayeil Ha 12/01/17 Sulfamethoxazole-Trimethoprim (Bactrim DS) 800-160 Mg Tab 1 TAB PO BID for Infection, #20 TAB 0 Refills Prov: Anayeli Ha 12/01/17 Disposition: 01 DISCHARGE HOME Condition: Stable Anayeli Ha Dec 01, 2017 18:09
[2017-12-01] MEDS ORDERED: IBUPROFEN 600 MG TAB PO ONE (18:15)
[2017-12-01] MEDS ORDERED: LIDOCAINE 1%/EPINEPHrine 1:100,000 SOLN 20 ML VIAL INFIL ONE (18:15)
[2017-12-01] MEDS ORDERED: CLINDAMYCIN PHOS 600 MG/4 ML VIAL IM ONE (18:15)
[2017-12-01] MEDS ORDERED: LIDOCAINE 1%/EPINEPHrine 1:100,000 SOLN 30 ML VIAL ONE (18:16)
[2017-12-01] MEDS ORDERED: CEPH-460 PO (19:21)
[2017-12-01] MEDS ORDERED: BACT800T5 PO (19:21)
[2017-12-01] MEDS ORDERED: NORC5TAB PO (19:25)
[2017-12-01] MEDS ORDERED: IBUP-232 PO (19:25)
== END 2017-12-01 19:51 | disposition home or self-care (01) ==
LOC: NEPC 17:26
DX: L02.414 Cutaneous abscess of left upper limb (principal)
CPT/HCPCS: 10061; 86403; 87070; 87205; 96372

== ENCOUNTER 2017-12-03 08:54 | Inpatient (IN) | payer SELFPAY ==
[~2017-12-03] VITALS: Ht 162.6 cm; Wt 80.0 kg
[~2017-12-03 08:54] MED LIST changes: +BACT800T5 PO; +CEPH-460 PO; +IBUP-232 PO; +NORC5TAB PO
[2017-12-03 08:57] VITALS: BP 135/68; PULSE 93; RESP 16; TEMP 98.4; O2SAT 100
[2017-12-03] MEDS ORDERED: VANCOMYCIN INJ 1,000 MG in SODIUM CHLOR 0.9% 250 ML INJ 250 ML IV STA (09:21)
[2017-12-03] MEDS ORDERED: SODIUM CHLOR 0.9% 1000 ML INJ 1,000 ML IV ONE (09:21)
[2017-12-03] MEDS ORDERED: AZTREONAM INJ 2,000 MG in SODIUM CHLORIDE 0.9% INJ 100 ML IV STA (09:21)
[2017-12-03] MEDS ORDERED: SODIUM CHLOR 0.9% 1000 ML INJ 800 ML IV ONE (09:21)
[2017-12-03] MEDS ORDERED: ONDANSETRON HCL 4 MG/2 ML VIAL IV PUSH ONE (09:30)
--- NOTE | 2017-12-03 09:44 | PD ---
HPI Chief Complaint: Wound/Suture/Staple Re-Check Time Seen by Provider: 09:19 Travel History International Travel<30 days: No Contact w/Intl Traveler<30days: No Traveled to known affect area: No History of Present Illness HPI 37-year-old female presents emergency department with worsening pain, swelling, and odor from a left mid forearm wound. Patient was seen on December 01, 2017 with abscess. The abscess at that time was lanced. Patient was placed on Bactrim, and sent home. She returns for wound check and packing removal, but is complaining of increased pain, with redness and streaking into the left medial forearm and upper arm. Patient denies fever or chills currently. She denies numbness or tingling in the distal extremity. Pain is 10 out of 10. Patient is allergic to adhesive, and penicillin. PFSH Past Medical History Arthritis: Yes (psoriatic) Cancer: Yes (STAGE II CERVICAL, lymphoma) Cardiovascular Problems: No Diminished Hearing: No Endocrine: Yes (HYPOGLYCEMIA) Gastrointestinal Disorders: No Genitourinary: No Psychiatric: No Reproductive: No Respiratory: No Integumentary: Yes (recent skin absess drained) Immunizations Current: Yes Radiation Therapy: Yes Seizures: Yes Tetanus Vaccination: < 5 Years Influenza Vaccination: No ?: Unknown : 9 Para: 1 Miscarriage: 7 Dilation and Curettage (D&C): Yes (x6) Past Surgical History Gynecologic Surgery: Yes (cervical scraping) Other Surgery: Yes (LYMPHOMA RIGHT LEG) Social History Alcohol Use: No Tobacco Use: Yes (1 ppd) Substance Use: No Allergies-Medications (Allergen,Severity, Reaction): Coded Allergies: adhesive (Verified Allergy, Severe, Rash, 12/03/17) penicillin G (Verified Allergy, Severe, Anaphylaxis, 12/03/17) Reported Meds & Prescriptions Reported Meds & Active Scripts Active Clindamycin (Clindamycin HCl) 150 Mg Cap 450 Mg PO Q8HR 10 Days Review of Systems Except as stated in HPI: all other systems reviewed are Neg General / Constitutional: No: Fever, Chills Eyes: No: Visual changes HENT: No: Headaches Cardiovascular: No: Chest Pain or Discomfort Respiratory: No: Shortness of Breath Gastrointestinal: No: Abdominal Pain Genitourinary: No: Dysuria Musculoskeletal: No: Pain Skin: Positive Lesions (See history of present illness.), No Rash Neurologic: No: Weakness Psychiatric: No: Depression Endocrine: No: Polydipsia Hematologic/Lymphatic: No: Easy Bruising Physical Exam Narrative GENERAL: Patient appears in no obvious distress per SKIN: Warm and dry. Normal color. Normal turgor. Patient has raised somewhat necrotic appearing erythematous indurated painful abscess with cellulitis to the left dorsal medial forearm. Packing is in place which is removed. No significant drainage is noted. Patient has erythema with streaking up the medial forearm and arm noted. The distal hand appears normal without pallor. Capillary refill is brisk in the distal left hand. HEAD: Atraumatic. Normocephalic. EYES: Pupils equal and round. No scleral icterus. No injection or drainage. ENT: No nasal bleeding or discharge. Mucous membranes pink and moist. Pharynx is clear. Airways patent. NECK: Trachea midline. Supple and nontender. CARDIOVASCULAR: Regular rate and rhythm. RESPIRATORY: No accessory muscle use. Clear to auscultation. Breath sounds equal bilaterally. GASTROINTESTINAL: Abdomen soft, non-tender, nondistended. Hepatic and splenic margins not palpable. MUSCULOSKELETAL: Extremities without clubbing, cyanosis, or edema. No obvious deformities. Patient has decreased night worker strength to the left hand secondary to pain. Neurovascular exam is intact. NEUROLOGICAL: Awake and alert. No obvious cranial nerve deficits. Motor grossly within normal limits. Five out of 5 muscle strength in the arms and legs. Normal speech. PSYCHIATRIC: Appropriate mood and affect; insight and judgment normal. Data Data Last Documented VS Vital Signs Date Time Temp Pulse Resp B/P (MAP) Pulse Ox O2 Delivery O2 Flow Rate FiO2 12/03/17 08:57 98.4 93 16 135/68 (90) 100 Orders Orders Sepsis Workup Initiated (12/03/17 ) Electrocardiogram (12/03/17 09:21) Complete Blood Count With Diff (12/03/17 09:21) Comprehensive Metabolic Panel (12/03/17 09:21) Prothrombin Time / Inr (Pt) (12/03/17:21) Act Partial Throm Time (Ptt) (12/03/17 09:21) Lactic Acid Sepsis Protocol (12/03/17 09:21) Urinalysis - C+S If Indicated (12/03/17 09:21) Blood Culture (12/03/17 09:21) Chest, Single Ap (12/03/17 09:21) Ecg Monitoring (12/03/17 09:21) Iv Access Insert/Monitor (12/03/17 09:21) Oximetry (12/03/17 09:21) Oxygen Administration (12/03/17 09:21) Ondansetron Inj (Zofran Inj) (12/03/17 09:30) Vancomycin Inj (Vancomycin Inj) (12/03/17 09:21) Sodium Chlor 0.9% 1000 Ml Inj (Ns 1000 M (12/03/17 09:21) Sodium Chlor 0.9% 1000 Ml Inj (Ns 1000 M (12/03/17 09:21) Ed Urine Pregnancytest Poc (12/03/17 09:21) Aztreonam Inj (Azactam Inj) (12/03/17 09:21) Ketorolac Inj (Toradol Inj) (12/03/17 09:30) Ct Forearm W Iv Contrast (12/03/17 ) Consult Hand Surgery (12/03/17 ) (Hub Use Only)Inp Phy Cons/Ref (12/03/17 ) Admit Order (Ed Use Only) (12/03/17 11:06) Labs Laboratory Tests Test 12/03/17 09:21 12/03/17 09:27 White Blood Count 9.0 TH/MM3 Red Blood Count 4.82 MIL/MM3 Hemoglobin 14.1 GM/DL Hematocrit 39.7 % Mean Corpuscular Volume 82.3 FL Mean Corpuscular Hemoglobin 29.2 PG Mean Corpuscular Hemoglobin Concent 35.6 % Red Cell Distribution Width 15.8 % Platelet Count 276 TH/MM3 Mean Platelet Volume 7.9 FL Neutrophils (%) (Auto) 63.9 % Lymphocytes (%) (Auto) 25.9 % Monocytes (%) (Auto) 9.5 % Eosinophils (%) (Auto) 0.3 % Basophils (%) (Auto) 0.4 % Neutrophils # (Auto) 5.8 TH/MM3 Lymphocytes # (Auto) 2.3 TH/MM3 Monocytes # (Auto) 0.9 TH/MM3 Eosinophils # (Auto) 0.0 TH/MM3 Basophils # (Auto) 0.0 TH/MM3 CBC Comment DIFF FINAL Differential Comment Prothrombin Time 10.5 SEC Prothromb Time International Ratio 1.0 RATIO Activated Partial Thromboplast Time 26.1 SEC Blood Urea Nitrogen 13 MG/DL Creatinine 0.82 MG/DL Random Glucose 77 MG/DL Total Protein 8.3 GM/DL Albumin 3.7 GM/DL Calcium Level 9.7 MG/DL Alkaline Phosphatase 126 U/L Aspartate Amino Transf (AST/SGOT) 22 U/L Alanine Aminotransferase (ALT/SGPT) 32 U/L Total Bilirubin 0.2 MG/DL Sodium Level 137 MEQ/L Potassium Level 3.9 MEQ/L Chloride Level 103 MEQ/L Carbon Dioxide Level 25.8 MEQ/L Anion Gap 8 MEQ/L Estimat Glomerular Filtration Rate 78 ML/MIN Lactic Acid Level 0.9 mmol/L [facility] Medical Decision Making Medical Screen Exam Complete: Yes Emergency Medical Condition: Yes Medical Record Reviewed: Yes Differential Diagnosis Left forearm abscess with worsening cellulitis. Failure to outpatient therapy. Possible compartment syndrome Narrative Course Patient is medically stable at time of exam. Sepsis protocol is initiated. Patient is given Zofran 4 mg IV as well as 30 mg Toradol IV. 2 L of normal saline bolus as ordered CBC, CMP, lactic acid protocol, and blood cultures 2 are ordered Urinalysis is ordered Patient is given 1000 mg vancomycin IV as well as 2000 mg Aztreonam IV. Chest x-ray is ordered which is within normal limits. CT of the forearm with IV contrast is ordered. Calls placed to , and patient is discussed. He recommends keeping the patient n.p.o., and admitting to hospitalist for OR debridement of her wound. Calls placed to the hospitalist and the patient was discussed with Dr. Torres she accepted the patient for admission. Diagnosis Primary Impression: Abscess of left forearm Additional Impression: Failure of outpatient treatment Admitting Information Admitting Physician Requests: Admit Condition: Stable Graeme Hare Dec 03, 2017 09:44
[2017-12-03] MEDS: KETOROLAC TROMETHAMINE 30 MG/ML (IVP) VIAL IV PUSH PRN ×3 (09:47→23:42)
[2017-12-03 09:55] LABS: AUTOMATED NEUTROPHIL # 5.8 TH/MM3 (1.8-7.7); BASOPHIL % 0.4 % (0.0-2.0); EOSINOPHIL % 0.3 % (0.0-4.0); HEMATOCRIT 39.7 % (35.0-46.0); HEMOGLOBIN 14.1 GM/DL (11.6-15.3); LYMPH % 25.9 % (9.0-44.0); LYMPHOCYTE # 2.3 TH/MM3 (1.0-4.8); MEAN CELL VOLUME 82.3 FL (80.0-100.0); MEAN CORPUSCULAR HEMOGLOBIN 29.2 PG (27.0-34.0); MEAN CORPUSCULAR HGB CONC 35.6 % (32.0-36.0); MEAN PLATELET VOLUME 7.9 FL (7.0-11.0); MONO % 9.5 % (0.0-8.0); MONOCYTE # 0.9 TH/MM3 (0-0.9); NEUT % 63.9 % (16.0-70.0); PLATELET COUNT 276 TH/MM3 (150-450); RED BLOOD COUNT 4.82 MIL/MM3 (4.00-5.30); RED CELL DISTRIBUTION WIDTH 15.8 % (11.6-17.2)
--- NOTE | 2017-12-03 09:55 | RADRPT ---
EXAM DATE/TIME: 12/03/2017 09:34 [facility] COMPARISON: CHEST SINGLE AP, September 14, 2017, 17:00. INDICATIONS : Patient complains of fever and shortness of breath. MEDICAL HISTORY : None. SURGICAL HISTORY : None. ENCOUNTER: Initial ACUITY: 1 day PAIN SCORE: 0/10 LOCATION: chest FINDINGS: A single view of the chest demonstrates the lungs to be symmetrically aerated without evidence of mas s, infiltrate or effusion. The cardiomediastinal contours are unremarkable. Osseous structures are intact. CONCLUSION: Normal examination. Devon Dover MD on December 03, 2017 at 9:53 Board Certified Radiologist. This report was verified electronically.
[2017-12-03 10:04] LABS: PROTHROMBIN TIME - PATIENT 10.5 SEC (9.8-11.6)
[2017-12-03 10:25] LABS: ALBUMIN 3.7 GM/DL (3.4-5.0); AST (GOT) 22 U/L (15-37); BICARBONATE 25.8 MEQ/L (21.0-32.0); BLOOD UREA NITROGEN 13 MG/DL (7-18); CALCIUM 9.7 MG/DL (8.5-10.1); CHLORIDE 103 MEQ/L (98-107); CREATININE 0.82 MG/DL (0.50-1.00); GLOMERULAR FILTRATION RATE 78 ML/MIN (>89); GLUCOSE,RANDOM 77 MG/DL (74-106); SODIUM (NA) 137 MEQ/L (136-145)
[2017-12-03 10:26] LABS: ALT (GPT) 32 U/L (10-53)
[2017-12-03 10:28] LABS: ALKALINE PHOSPHATASE 126 U/L (45-117); TOTAL BILIRUBIN ADULT 0.2 MG/DL (0.2-1.0); TOTAL PROTEIN 8.3 GM/DL (6.4-8.2)
--- NOTE | 2017-12-03 10:41 | PD ---
Physical Exam Narrative I, Dr. Jara, have reviewed the advance practice practitioner's documentation and am in agreement, met with the patient face to face, made the diagnosis, and the medical decision making was done by me. *My assessment and Findings: Lymphadenopathy vs. abscess vs. cellulitis that failed outpatient treatment. 37yo F here with left arm infection for 5 days. Pt said she had a bee sting and was here 2 days ago for I&D. Said it got worst with redness streaking up her left arm. LUE: +Radial pulse. +3cm by 3cm wound with central opening very tender to palpation. Soft compartments. Dr. Maher from hand surgery came to evaluate the patient and will be taking her to OR for debridement. Labs reviewed, no leukocytosis. H/H normal. Lactic acid normal. Pt given vancomycin and aztreonam. Pt given toradol for pain. Pt accepted to Dr. Torres's service. Data Data Last Documented VS Vital Signs Date Time Temp Pulse Resp B/P (MAP) Pulse Ox O2 Delivery O2 Flow Rate FiO2 12/03/17 08:57 98.4 93 16 135/68 (90) 100 Orders Orders Sepsis Workup Initiated (12/03/17 ) Electrocardiogram (12/03/17:21) Complete Blood Count With Diff (12/03/17:) Comprehensive Metabolic Panel (12/03/17:21) Prothrombin Time / Inr (Pt) (12/03/17:21) Act Partial Throm Time (Ptt) (12/03/17:21) Lactic Acid Sepsis Protocol (12/03/17:21) Urinalysis - C+S If Indicated (12/03/17:21) Blood Culture (12/03/17:21) Chest, Single Ap (12/03/17:21) Ecg Monitoring (12/03/17:21) Iv Access Insert/Monitor (12/03/17:21) Oximetry (12/03/17:21) Oxygen Administration (12/03/17:21) Ondansetron Inj (Zofran Inj) (12/03/17 09:30) Vancomycin Inj (Vancomycin Inj) (12/03/17:21) Sodium Chlor 0.9% 1000 Ml Inj (Ns 1000 M (12/03/17 09:21) Sodium Chlor 0.9% 1000 Ml Inj (Ns 1000 M (12/03/17 09:21) Ed Urine Pregnancytest Poc (12/03/17 09:21) Aztreonam Inj (Azactam Inj) (12/03/17 09:21) Ketorolac Inj (Toradol Inj) (12/03/17 09:30) Ct Forearm W Iv Contrast (12/03/17 ) Consult Hand Surgery (12/03/17 ) (Hub Use Only)Inp Phy Cons/Ref (12/03/17 ) Admit Order (Ed Use Only) (12/03/17 11:06) Labs Laboratory Tests Test 12/03/17 09:21 12/03/17 09:27 White Blood Count 9.0 TH/MM3 Red Blood Count 4.82 MIL/MM3 Hemoglobin 14.1 GM/DL Hematocrit 39.7 % Mean Corpuscular Volume 82.3 FL Mean Corpuscular Hemoglobin 29.2 PG Mean Corpuscular Hemoglobin Concent 35.6 % Red Cell Distribution Width 15.8 % Platelet Count 276 TH/MM3 Mean Platelet Volume 7.9 FL Neutrophils (%) (Auto) 63.9 % Lymphocytes (%) (Auto) 25.9 % Monocytes (%) (Auto) 9.5 % Eosinophils (%) (Auto) 0.3 % Basophils (%) (Auto) 0.4 % Neutrophils # (Auto) 5.8 TH/MM3 Lymphocytes # (Auto) 2.3 TH/MM3 Monocytes # (Auto) 0.9 TH/MM3 Eosinophils # (Auto) 0.0 TH/MM3 Basophils # (Auto) 0.0 TH/MM3 CBC Comment DIFF FINAL Differential Comment Prothrombin Time 10.5 SEC Prothromb Time International Ratio 1.0 RATIO Activated Partial Thromboplast Time 26.1 SEC Blood Urea Nitrogen 13 MG/DL Creatinine 0.82 MG/DL Random Glucose 77 MG/DL Total Protein 8.3 GM/DL Albumin 3.7 GM/DL Calcium Level 9.7 MG/DL Alkaline Phosphatase 126 U/L Aspartate Amino Transf (AST/SGOT) 22 U/L Alanine Aminotransferase (ALT/SGPT) 32 U/L Total Bilirubin 0.2 MG/DL Sodium Level 137 MEQ/L Potassium Level 3.9 MEQ/L Chloride Level 103 MEQ/L Carbon Dioxide Level 25.8 MEQ/L Anion Gap 8 MEQ/L Estimat Glomerular Filtration Rate 78 ML/MIN Lactic Acid Level 0.9 mmol/L MDM Supervised Visit with DEB: Yes Diagnosis Primary Impression: Abscess of left forearm Admitting Information Admitting Physician Requests: Admit Kathleen Jara DO Dec 03, 2017 10:41
--- NOTE | 2017-12-03 11:21 | MB ---
cc: Anton Oseguera MD DATE OF CONSULT: 12/03/2017 REASON FOR CONSULTATION: Left forearm abscess. HISTORY OF PRESENT ILLNESS: The patient is a 37-year-old right hand dominant female who presented to the ED with complaints of pain, swelling, drainage of the left forearm which has been going on for the past 1 week. Per patient, states she had incision and drainage 2 days ago by the ER. She presented to today with worsening symptoms of pain, swelling and drainage. The patient also complains of malodor from the region. She complains of streaking redness over the forearm in the upper arm. Denies any fever or chills. Patient gives a history of honeybee bite to the left forearm about a week ago. The patient was seen by me for right forearm abscess and she had extensive compartment release in 09/2017. Denies any complaints of the right forearm at present time. PAST MEDICAL AND SURGICAL HISTORY: Reviewed. Surgical history is significant for forearm fasciotomy, right forearm. PHYSICAL EXAMINATION: GENERAL: Patient is alert, oriented x 3. EXTREMITIES: Exam of left forearm reveals necrotic wound over the mid forearm on the volar radial aspect measuring about 5 cm in diameter with surrounding swelling and erythema. There is also swelling of the forearm. Malodorous drainage noted from the region. She has questionable palpable pulses distally. Doppler was used to check for radial and ulnar pulse which is dopplerable. She is able to make a full fist. She has full extension of the fingers. She has intact sensation distally. Terminal degrees if wrist flexion and extent ion is painful. DIAGNOSTIC STUDIES: Her lab work was reviewed. She has a white count of 9, shift of 63%. ASSESSMENT: A 37-year-old female with left forearm abscess. PLAN: Will be to keep the patient n.p.o., take her emergently for incision and drainage of left forearm abscess. We will admit the patient under hospitalist for IV antibiotics. The patient has been explained the risk and benefits of the procedure. We will keep the patient n.p.o. for the proposed surgical procedure. Anton Oseguera MD SE/SHANTEL , 10:57 AM , 11:20 AM
--- NOTE | 2017-12-03 11:38 | HHI.HP ---
[facility] Primary Care Physician No Primary Care Physician Admission Diagnosis Right forearm abscess/cellulitis failure outpatient therapy Diagnoses: Chief Complaint: Right forearm abscess/cellulitis Travel History International Travel<30 Days: No Contact w/Intl Traveler <30 Da: No Traveled to Known Affected Are: No History of Present Illness This is a 37-year-old female past medical history of stage II cervical cancer, lymphoma, recent hospitalization secondary to left arm infection/compartment syndrome status post fasciotomies who presented with right arm abscess/ cellulitis. Patient stated about 4 days ago she had a bee stung her on her left forearm. She stated that there was severe swelling. She use over-the- counter remedies including creams and Benadryl with no improvement. She stated on day 4 she started seeing black spots and pus come out of her arm so she went to the emergency department. In the emergency department and I&D was performed and she was sent home on antibiotics. Patient stated that she was told if there is no improvement or worsening symptoms to return to the emergency department which is why she presents today. Patient denies any fevers or chills. Denies any history of any IV drug use or illicit drug use. All other review of system reviewed and negative. Past Family Social History Past Medical History Stage II cervical cancer Lymphoma Endometriosis Past Surgical History Multiple abdominal laparoscopic surgeries mostly due to lysis of adhesions D&C. Reported Medications Clindamycin (Clindamycin HCl) 150 Mg Cap 450 Mg PO Q8HR 10 Days Allergies: Coded Allergies: adhesive (Verified Allergy, Severe, Rash, 12/03/17) penicillin G (Verified Allergy, Severe, Anaphylaxis, 12/03/17) Active Ordered Medications Current Medications Ondansetron HCl (Zofran Inj) 4 mg ONCE ONCE IV PUSH Last administered on at 09:47; Start 12/03/17 at 09:30; Stop 12/03/17 at 09:31; Status DC Vancomycin HCl 1000 mg/Sodium Chloride 250 ml @ 250 mls/hr ONCE STAT IV Last administered on 12/03/17at 09:56; Start 12/03/17 at 09:21; Stop 12/03/17 at 10:20; Status DC Sodium Chloride 1,000 ml @ 1,000 mls/hr Q1H ONCE IV Last administered on at 09:47; Start 12/03/17 at 09:21; Stop 12/03/17 at 10:20; Status DC Sodium Chloride 800 ml @ 1,000 mls/hr Q48M ONCE IV Last administered on at 11:12; Start 12/03/17 at 09:21; Stop 12/03/17 at 10:08; Status DC Aztreonam 2000 mg/ Sodium Chloride 100 ml @ 200 mls/hr ONCE STAT IV Last administered on 12/03/17at 11:13; Start 12/03/17 at 09:21; Stop 12/03/17 at 09:50; Status DC Ketorolac Tromethamine (Toradol Inj) 30 mg Q6H PRN IV PUSH PAIN SCALE 4 TO 10 Last administered on 12/03/17at 09:47; Start 12/03/17 at 09:30 Family History Mother has a history of ovarian cancer. Social History Patient smokes 1 pack per day since the age of 11. Denies any alcohol or illicit drug use. Physical Exam Vital Signs Vital Signs Date Time Temp Pulse Resp B/P (MAP) Pulse Ox O2 Delivery O2 Flow Rate FiO2 12/03/17 08:57 98.4 93 16 135/68 (90) 100 Physical Exam GENERAL: This is a well-nourished, well-developed patient, in no apparent distress. SKIN: Left forearm had necrotic wound over the mid forearm on the volar radial aspect with swelling and erythema. Drainage was malodorous. I was able to palpate good radial pulses and sensation intact. HEAD: Atraumatic. Normocephalic. No temporal or scalp tenderness. EYES: Pupils equal round and reactive. Extraocular motions intact. No scleral icterus. No injection or drainage. ENT: Nose without bleeding, purulent drainage or septal hematoma. Throat without erythema, tonsillar hypertrophy or exudate. Uvula midline. Airway patent. NECK: Trachea midline. No JVD or lymphadenopathy. Supple, nontender, no meningeal signs. CARDIOVASCULAR: Regular rate and rhythm without murmurs, gallops, or rubs. RESPIRATORY: Clear to auscultation. Breath sounds equal bilaterally. No wheezes , rales, or rhonchi. GASTROINTESTINAL: Abdomen soft, non-tender, nondistended. No hepato-splenomegaly , or palpable masses. No guarding. MUSCULOSKELETAL: Extremities without clubbing, cyanosis, or edema. No joint tenderness, effusion, or edema noted. No calf tenderness. Negative Homans sign bilaterally. NEUROLOGICAL: Awake and alert. Cranial nerves II through XII intact. Motor and sensory grossly within normal limits. Five out of 5 muscle strength in all muscle groups. Normal speech. Laboratory Laboratory Tests Test 12/03/17 09:21 12/03/17 09:27 White Blood Count 9.0 Red Blood Count 4.82 Hemoglobin 14.1 Hematocrit 39.7 Mean Corpuscular Volume 82.3 Mean Corpuscular Hemoglobin 29.2 Mean Corpuscular Hemoglobin Concent 35.6 Red Cell Distribution Width 15.8 Platelet Count 276 Mean Platelet Volume 7.9 Neutrophils (%) (Auto) 63.9 Lymphocytes (%) (Auto) 25.9 Monocytes (%) (Auto) 9.5 Eosinophils (%) (Auto) 0.3 Basophils (%) (Auto) 0.4 Neutrophils # (Auto) 5.8 Lymphocytes # (Auto) 2.3 Monocytes # (Auto) 0.9 Eosinophils # (Auto) 0.0 Basophils # (Auto) 0.0 CBC Comment DIFF FINAL Differential Comment Prothrombin Time 10.5 Prothromb Time International Ratio 1.0 Activated Partial Thromboplast Time 26.1 Blood Urea Nitrogen 13 Creatinine 0.82 Random Glucose 77 Total Protein 8.3 Albumin 3.7 Calcium Level 9.7 Alkaline Phosphatase 126 Aspartate Amino Transf (AST/SGOT) 22 Alanine Aminotransferase (ALT/SGPT) 32 Total Bilirubin 0.2 Sodium Level 137 Potassium Level 3.9 Chloride Level 103 Carbon Dioxide Level 25.8 Anion Gap 8 Estimat Glomerular Filtration Rate 78 Lactic Acid Level 0.9 Date/Time Source Procedure Growth Status 12/03/17 09:27 Blood Peripheral Aerobic Blood Culture Pending Received 12/03/17 09:27 Blood Peripheral Anaerobic Blood Culture Pending Received Result Diagram: 12/03/1792012/03/17920 Imaging Last Impressions Chest X-Ray 12/03/17920 Signed Impressions: Service Date/Time: Sunday, December 03, 2017 09:34 - CONCLUSION: Normal examination. MD Nelli Morgan VTE Risk Assessment Nelli VTE Risk Assessment: No/Low Risk (score <= 1) Caprini Risk Assessment Model Point Value = 1 Point Value = 2 Point Value = 3 Point Value = 5 Age 41-60 Minor surgery BMI > 25 kg/m2 Swollen legs Varicose veins or History of unexplained or recurrent spontaneous Oral contraceptives or hormone replacement Sepsis (< 1 month) Serious lung disease, including pneumonia (< 1 month) Abnormal pulmonary function Acute myocardial infarction Congestive heart failure (< 1 month) History of inflammatory bowel disease Medical patient at bed rest Age 61-74 Arthroscopic surgery Major open surgery (> 45 min) Laparoscopic surgery (> 45 min) Malignancy Confined to bed (> 72 hours) Immobilizing plaster cast Central venous access Age >= 75 History of VTE Family history of VTE Factor V Leiden Prothrombin [id number] Lupus anticoagulant Anticardiolipin antibodies Elevated serum homocysteine Heparin-induced thrombocytopenia Other congenital or acquired thrombophilia Stroke (< 1 month) Elective arthroplasty Hip, pelvis, or leg fracture Acute spinal cord injury (< 1 month) Prophylaxis Regimen Total Risk Factor Score Risk Level Prophylaxis Regimen 0-1 Low Early ambulation 2 Moderate Order ONE of the following: *Sequential Compression Device (SCD) *Heparin 5000 units SQ BID 3-4 Higher Order ONE of the following medications: *Heparin 5000 units SQ TID *Enoxaparin/Lovenox 40 mg SQ daily (WT < 150 kg, CrCl > 30 mL/min) *Enoxaparin/Lovenox 30 mg SQ daily (WT < 150 kg, CrCl > 10-29 mL/min) *Enoxaparin/Lovenox 30 mg SQ BID (WT < 150 kg, CrCl > 30 mL/min) AND/OR *Sequential Compression Device (SCD) 5 or more Highest Order ONE of the following medications: *Heparin 5000 units SQ TID (Preferred with Epidurals) *Enoxaparin/Lovenox 40 mg SQ daily (WT < 150 kg, CrCl > 30 mL/min) *Enoxaparin/Lovenox 30 mg SQ daily (WT < 150 kg, CrCl > 10-29 mL/min) *Enoxaparin/Lovenox 30 mg SQ BID (WT < 150 kg, CrCl > 30 mL/min) AND *Sequential Compression Device (SCD) Assessment and Plan Assessment and Plan This is a 37-year-old female who presented with left forearm abscess/cellulitis Left forearm abscess/cellulitis -Status post I&D 2 days ago in the emergency department. Failed outpatient antibiotics/therapy with clindamycin. Cultures from 12/01 shows strep not A,E,D and Haemophilus. No signs of compartment syndrome. -Dr. Anton Blanchard consulted. Patient will have emergent I&D today. -She was given vancomycin and aztreonam in the ED. We will continue with IV antibiotics. Will consult infectious disease to help manage antibiotics. Tobacco dependence -Smoking cessation. Education given. Patient requesting nicotine patch. We will start nicotine patch. DVT prophylaxis -Low risk encourage ambulation. Discussed Condition With Patient Physician Certification 2 Midnight Certification Type: Admission for Inpatient Services Order for Inpatient Services The services are ordered in accordance with Medicare regulations or non- Medicare payer requirements, as applicable. In the case of services not specified as inpatient-only, they are appropriately provided as inpatient services in accordance with the 2-midnight benchmark. Estimated LOS (days): 5 5 days is the estimated time the patient will need to remain in the hospital, assuming treatment plan goals are met and no additional complications. Post-Hospital Plan: [place] Yulia Torres MD Dec 03, 2017 11:38
[2017-12-03] MEDS ORDERED: SENNOSIDES 8.6 MG TAB PO PRN (11:45)
[2017-12-03] MEDS ORDERED: BISACODYL 10 MG SUPP RECTAL PRN (11:45)
[2017-12-03] MEDS ORDERED: MAGNESIUM HYDROXIDE SUSP 30 ML CUP PO PRN (11:45)
[2017-12-03] MEDS ORDERED: SODIUM CHLORIDE 0.9% FLUSH 10 ML FLUSH IV FLUSH PRN (11:45)
[2017-12-03] MEDS ORDERED: NALOXONE HCL 0.4 MG/ML AMP IV PUSH PRN (11:45)
[2017-12-03] MEDS ORDERED: Vancomycin Consult Pharmacy 1 EA OTHER SCH (11:45)
[2017-12-03] MEDS ORDERED: ONDANSETRON HCL 4 MG/2 ML VIAL IV ONE (12:00)
[2017-12-03] MEDS ORDERED: PROPOFOL 200 MG/20 ML AMP IV ONE (12:00)
[2017-12-03] MEDS ORDERED: DEXAMETHASONE SOD PHOS 4 MG/ML VIAL IV ONE (12:00)
[2017-12-03] MEDS ORDERED: LIDOCAINE HCL 1% PF 5 ML SYRINGE OTHER ONE (12:00)
[2017-12-03] MEDS ORDERED: IOHEXOL 350 MG/ML 10 ML VIAL (for RAD DIAG) IVCONTRAST ONE (12:16)
--- NOTE | 2017-12-03 12:23 | RADRPT ---
EXAM DATE/TIME: 12/03/2017 11:54 [place] COMPARISON: No previous studies available for comparison. INDICATIONS : Left forearm swelling and pain, 1 week after bee stings and 2 days after I & D IV CONTRAST: 75 cc Omnipaque 350 (iohexol) IV RADIATION DOSE: 13.82 CTDIvol (mGy) MEDICAL HISTORY : Seizures. Lymphoma. SURGICAL HISTORY : None. ENCOUNTER: Initial ACUITY: 1 week PAIN SCALE: 6/10 LOCATION: Left forearm TECHNIQUE: Volumetric scanning of the forearm was performed. Using automated exposure control and adjustment of the mA and/or kV according to patient size, radiation dose was kept as low as reasonably achievable to obtain optimal diagnostic quality images. DICOM format image data is available electronically fo r review and comparison. FINDINGS: BONES: No evidence of fracture. Alignment is within normal limits. JOINTS: No evidence of joint narrowing or effusion. SOFT TISSUES: Significant soft tissue edema, skin thickening and subcutaneous fluid in the radial aspect of the for earm without underlying abscess or drainable fluid collection. CONCLUSION: Severe soft tissue inflammation the radial aspect of the forearm without underlying abscess or draina ble fluid collection. Devon Dover MD on December 03, 2017 at 12:21 Board Certified Radiologist. This report was verified electronically.
[2017-12-03 12:36] VITALS: BP 114/62; PULSE 68; RESP 16; TEMP 97; O2SAT 99
[2017-12-03] MEDS: SODIUM CHLOR 0.9% 1000 ML INJ 1,000 ML IV SCH ×2 (12:47→15:45)
[2017-12-03] MEDS: NICOTINE 21 MG/24 HR PATCH T-DERMAL SCH (12:47)
[2017-12-03] MEDS ORDERED: BUPIVACAINE HCL PF 0.5% 30 ML VIAL ONE (13:52)
[2017-12-03] MEDS ORDERED: LIDOCAINE HCL 2% 50 ML VIAL ONE (13:52)
[2017-12-03] MEDS ORDERED: BACITRACIN TOP OINT 15 GM TUBE ONE (13:53)
[2017-12-03] MEDS ORDERED: VANCOMYCIN HCL 1000 MG VIAL ONE (14:41)
--- NOTE | 2017-12-03 15:22 | PD.OP ---
Operative Report Preoperative Diagnosis: (1) Abscess of left forearm Postoperative Diagnosis: (1) Abscess of left forearm Procedure: incision and drainage, excisional debridement, wound vac application left forearm abscess Anesthesia: general Surgeon: Anton Oseguera Television Audio Engineer(s): xavi Operation and Findings: necrotic skin, subcutaneous tissue with purulence left forearm Anton Oseguera MD Dec 03, 2017 15:22
[2017-12-03] MEDS ORDERED: *MEPERIDINE 25 MG INJ VIAL PERIprocedural Use ONLY ONE (15:26)
[2017-12-03] MEDS ORDERED: *morphine SULFATE 10 MG/ML PERIprocedure ONLY ONE (15:29)
[2017-12-03] MEDS ORDERED: DO NOT ADM ANY ANTICOAGULANT DRUGS PRN (15:30)
[2017-12-03] MEDS ORDERED: MIDAZOLAM HCL 2 MG/2 ML VIAL ONE (15:33)
[2017-12-03] MEDS ORDERED: HYDROmorphone HCL PF 2 MG/ML VIAL ONE (15:35)
--- NOTE | 2017-12-03 17:54 | MP ---
cc: Anton Oseguera MD, Srikanth 0 MD DATE OF OPERATION: 12/03/2017 PREOPERATIVE DIAGNOSIS: Abscess, left forearm. POSTOPERATIVE DIAGNOSIS: Abscess, left forearm. PROCEDURE: Incision, drainage, excisional debridement, wound VAC application, left forearm SURGEON: Dr. Anton Oseguera. ANESTHESIA: General. ESTIMATED BLOOD LOSS: Minimal. TOURNIQUET TIME: 19 minutes at 250 mmHg. SPECIMENS: Sent for culture and sensitivity. DISPOSITION: To PACU stable. INDICATIONS: The patient is a 37-year-old female who presented with complaints of pain, swelling, drainage from the left forearm region for the past 1 week. The patient had incision and drainage by the ED 2 days ago and she presented today with worsening symptoms. On examination, she had necrotic skin with purulent drainage from the left forearm over the volar radial aspect of the forearm and there was malodorous discharge from the region. She also had surrounding induration and erythema. She has normal white count. CT scan showed extensive induration and inflammation with no drainable collection. She was consented for incision and drainage of left forearm abscess. The patient understands risks and benefits of the procedure. PROCEDURE IN DETAIL: The patient was brought to the operating room under general anesthesia. The left upper extremity was thoroughly prepped and draped. After limb elevation, tourniquet was inflated to 250 mmHg. Intraoperative findings include a necrotic patch of skin over the volar radial aspect of the forearm with extensive induration of surrounding soft tissues including skin and subcutaneous tissue. The necrotic skin was excised. The indurated subcutaneous tissue was debrided. She had thrombosed and infected vein which was excised and cauterized with bipolar cautery. A thorough wash of the wound was carried using hydrogen peroxide and normal saline mixed with irrigant. She had about 3 or 4 cm diameter of loss of skin and subcutaneous tissue over the region. The tourniquet was deflated. Total tourniquet time was 19 minutes. She had good distal circulation after release of tourniquet. Bleeding points were cauterized with bipolar cautery. Decision was made to proceed with wound VAC application. Wound VAC was applied and was held in place with a pressure setting of 125 mm and on a continuous basis. Bulky hand and forearm dressing was applied which was held in place by Sof-Rol and a ____ hand wrap. She had good distal circulation at the end of the procedure. The patient was ____ stable condition. The plan will be to bring the patient back in 2 days' time for wound VAC change and debridement of the left forearm. Anton Oseguera MD SE//fozia , 03:26 PM , 05:43 PM
[2017-12-03] MEDS: AZTREONAM INJ 1,000 MG in SODIUM CHLORIDE 0.9% INJ 100 ML IV SCH (18:02)
[2017-12-03] MEDS ORDERED: HYDROmorphone HCL PF 2 MG/ML VIAL IV PUSH ONE (20:15)
[2017-12-03] MEDS ORDERED: HYDROmorphone HCL PF 1 MG/ML VIAL IV PUSH ONE (20:15)
[2017-12-03 20:21] VITALS: BP 94/61; PULSE 86; RESP 20; TEMP 97.8; O2SAT 98
[2017-12-03] MEDS: REMOVE OLD PATCH T-DERMAL SCH (21:55)
[2017-12-03] MEDS: SODIUM CHLORIDE 0.9% FLUSH 10 ML FLUSH IV FLUSH SCH (21:55)
[2017-12-03] MEDS: VANCOMYCIN INJ 1,000 MG in SODIUM CHLOR 0.9% 250 ML INJ 250 ML IV SCH (22:03)
[2017-12-04 00:29] VITALS: BP 104/56; PULSE 73; RESP 19; TEMP 97.3; O2SAT 96
[2017-12-04] MEDS: AZTREONAM INJ 1,000 MG in SODIUM CHLORIDE 0.9% INJ 100 ML IV SCH ×3 (02:26→17:51)
[2017-12-04 05:14] VITALS: BP 94/54; PULSE 62; RESP 19; TEMP 98.4; O2SAT 94
[2017-12-04] MEDS: SODIUM CHLOR 0.9% 1000 ML INJ 1,000 ML IV SCH ×2 (06:26→17:36)
[2017-12-04] MEDS: NICOTINE 21 MG/24 HR PATCH T-DERMAL SCH (08:25)
[2017-12-04] MEDS: SODIUM CHLORIDE 0.9% FLUSH 10 ML FLUSH IV FLUSH SCH ×2 (08:25→21:00)
[2017-12-04] MEDS: KETOROLAC TROMETHAMINE 30 MG/ML (IVP) VIAL IV PUSH PRN ×2 (08:26→21:52)
[2017-12-04 08:46] LABS: MEAN CELL VOLUME 84.5 FL (80.0-100.0); MEAN CORPUSCULAR HEMOGLOBIN 27.3 PG (27.0-34.0); MEAN CORPUSCULAR HGB CONC 32.3 % (32.0-36.0); MEAN PLATELET VOLUME 7.9 FL (7.0-11.0); PLATELET COUNT 216 TH/MM3 (150-450); RED BLOOD COUNT 4.02 MIL/MM3 (4.00-5.30); RED CELL DISTRIBUTION WIDTH 15.5 % (11.6-17.2)
--- NOTE | 2017-12-04 09:16 | HHI.PR ---
Subjective Remarks f/u; cellulitis/ abscess left forearm in no acute distress. complaining of severe pain to the left forearm. no fever. Objective Vitals Vital Signs Date Time Temp Pulse Resp B/P (MAP) Pulse Ox O2 Delivery O2 Flow Rate FiO2 12/04/17 05:14 98.4 62 19 94/54 (67) 94 12/04/17 01:16 18 12/04/17 00:29 97.3 73 19 104/56 (72) 96 12/03/17 22:43 18 12/03/17 20:21 97.8 86 20 94/61 (72) 98 12/03/17 16:55 80 19 92/54 (67) 98 Nasal Cannula 2 12/03/17 15:45 72 19 98/53 (68) 96 Nasal Cannula 2 12/03/17 15:30 78 19 128/81 (97) 96 Nasal Cannula 2 12/03/17 15:25 97.5 86 19 130/75 (93) 100 Nasal Cannula 4 12/03/17 12:36 97.0 68 16 114/62 (79) 99 I/O 12/03/17 12/03/17 12/03/17 12/04/17 12/04/17 12/04/17 07:00 15:00 23:00 07:00 15:00 23:00 Intake Total 2150 ml 1450 ml Balance 2150 ml 1450 ml Intake IV Total 2150 ml 1450 ml # Voids 2 Result Diagram: 12/04/17 0743 12/03/17 0921 Imaging Last Impressions Chest X-Ray 12/03/17 0921 Signed Impressions: Service Date/Time: Sunday, December 03, 2017 09:34 - CONCLUSION: Normal examination. Devon Dover MD Upper Extremity CT 12/03/17 0000 Signed Impressions: Service Date/Time: Sunday, December 03, 2017 11:54 - CONCLUSION: Severe soft tissue inflammation the radial aspect of the forearm without underlying abscess or drainable fluid collection. Devon Dover MD Objective Remarks GENERAL: This is a well-nourished, well-developed patient, in no apparent distress. CARDIOVASCULAR: Regular rate and regular rhythm without murmurs, gallops, or rubs. RESPIRATORY: Clear to auscultation. Breath sounds equal bilaterally. No wheezes , rales, or rhonchi. GASTROINTESTINAL: Abdomen soft, non-tender, nondistended. Normal, active bowel sounds MUSCULOSKELETAL: wound vac on left forearm. NEURO: Alert & Oriented x4 to person, place, time, situation. Moves all ext x4 Procedures I/D of the left forearm abscess with wound vac application Medications and IVs Inpatient Medications Aztreonam 1000 mg/ Sodium Chloride 100 ml @ 200 mls/hr Q8H IV Last administered on 12/04/17at 02:26; Start 12/03/17 at 18:00 Aztreonam 2000 mg/ Sodium Chloride 100 ml @ 200 mls/hr ONCE STAT IV Last administered on 12/03/17at 11:13; Start 12/03/17 at 09:21; Stop 12/03/17 at 09:50; Status DC Bisacodyl (Dulcolax Supp) 10 mg DAILY PRN RECTAL SEVERE CONSITIPATION; Start at 11:45 Hydromorphone HCl (Dilaudid Pf Inj) 1 mg ONCE ONCE IV PUSH Last administered on 12/03/17at 21:55; Start 12/03/17 at 20:15; Stop 12/03/17 at 20:16; Status DC Ketorolac Tromethamine (Toradol Inj) 30 mg Q6H PRN IV PUSH PAIN SCALE 4 TO 10 Last administered on 12/04/17at 08:26; Start 12/03/17 at 09:30 Magnesium Hydroxide (Milk Of Magnesia Liq) 30 ml Q12H PRN PO Mild constipation ; Start 12/03/17 at 11:45 Miscellaneous Information ALL NURSING DEPARTME... UNSCH PRN .XX SEE LABEL COMMENTS; Start 12/03/17 at 15:30; Stop 12/04/17 at 15:29 Naloxone HCl (Narcan Inj) 0.4 mg UNSCH PRN IV PUSH SEE LABEL COMMENTS; Start at 11:45 Nicotine (Habitrol 21 Mg Patch.24 Hr) 1 patch DAILY T-DERMAL Last administered on 12/04/17at 08:25; Start 12/03/17 at 11:45 Ondansetron HCl (Zofran Inj) 4 mg Q6H PRN IVP NAUSEA OR VOMITING; Start at 11:45 Pharmacy Profile Note 0 ml @ 0 mls/hr UNSCH OTHER ; Start 12/03/17 at 11:45 Sennosides (Senokot) 17.2 mg Q12H PRN PO Moderate constipation; Start 12/03/17 at 11:45 Sodium Chloride (NS Flush) 2 ml BID IV FLUSH Last administered on 12/03/17at 21: 55; Start 12/03/17 at 21:00 Vancomycin HCl 1000 mg/Sodium Chloride 250 ml @ 250 mls/hr Q12H IV Last administered on 12/03/17at 22:03; Start 12/03/17 at 22:00 A/P Assessment and Plan Left forearm abscess/cellulitis -Status post I&D 2 days ago in the emergency department. Failed outpatient antibiotics/therapy with clindamycin. Cultures from 12/01 shows strep not A,E,D and Haemophilus. No signs of compartment syndrome. -Dr. Anton Blanchard consulted. s/p I/D of the left forearm abscess and wound vac placement. -She was given vancomycin and aztreonam in the ED. We will continue with IV antibiotics. awaiting ID evaluation. -continue with pain control;pain is not controlled; will start on norco with Toradol for breakthrough pain. will monitor and adjust the pain regimen as needed. Tobacco dependence -Smoking cessation. Education given. Patient requesting nicotine patch. We will start nicotine patch. DVT prophylaxis -Low risk encourage ambulation. Haleigh Monroe MD Dec 04, 2017 09:16
[2017-12-04] MEDS: ACETAMINOPHEN/HYDROcodone 325 MG/7.5 MG TAB PO PRN ×3 (09:56→21:54)
[2017-12-04 10:33] LABS: BICARBONATE 20.9 MEQ/L (21.0-32.0); CALCIUM 8.1 MG/DL (8.5-10.1); CREATININE 0.59 MG/DL (0.50-1.00)
--- NOTE | 2017-12-04 11:03 | HHI.PR ---
Subjective Remarks complain of pain complaint with elevation Objective Vital Signs Date Time Temp Pulse Resp B/P (MAP) Pulse Ox O2 Delivery O2 Flow Rate FiO2 12/04/17 05:14 98.4 62 19 94/54 (67) 94 12/04/17 01:16 18 12/04/17 00:29 97.3 73 19 104/56 (72) 96 12/03/17 22:43 18 12/03/17 20:21 97.8 86 20 94/61 (72) 98 12/03/17 16:55 80 19 92/54 (67) 98 Nasal Cannula 2 12/03/17 15:45 72 19 98/53 (68) 96 Nasal Cannula 2 12/03/17 15:30 78 19 128/81 (97) 96 Nasal Cannula 2 12/03/17 15:25 97.5 86 19 130/75 (93) 100 Nasal Cannula 4 12/03/17 12:36 97.0 68 16 114/62 (79) 99 I/O 12/03/17 12/03/17 12/03/17 12/04/17 12/04/17 12/04/17 07:00 15:00 23:00 07:00 15:00 23:00 Intake Total 2150 ml 1450 ml Balance 2150 ml 1450 ml Intake IV Total 2150 ml 1450 ml # Voids 2 examination of left upper extremity: wound vac in place able to make a fist intact sensation intact circulation Result Diagram: 12/04/17 0743 12/04/17 0743 Assessment and Plan Assessment and Plan 37 year old female s/p I and D, wound vac application POD 1 Plan: continue with wound vac wound vac setting: intermittent, 100mm hg 3 on and 1 off continue antibiotics tentatively posted for wound debridement and wound vac change on 12/05/18 Anton Oseguera MD Dec 04, 2017 11:03
--- NOTE | 2017-12-04 11:16 | EKG ---
Date Performed: 12/03/2017 Time Performed: 12:19:11 PTAGE: 37 years EKG: Sinus rhythm INFERIOR MYOCARDIAL INFARCTION ABNORMAL ECG NO PREVIOUS TRACING DOCTOR: Devon Muñoz Interpretating Date/Time 12/04/2017 11:14:19
[2017-12-04] MEDS: VANCOMYCIN INJ 1,000 MG in SODIUM CHLOR 0.9% 250 ML INJ 250 ML IV SCH ×2 (11:35→21:55)
[2017-12-04] MEDS ORDERED: HYDROmorphone HCL PF 2 MG/ML VIAL IV PUSH ONE (11:45)
[2017-12-04 12:00] VITALS: BP 108/53; PULSE 78; RESP 17; TEMP 98.6; O2SAT 97
--- NOTE | 2017-12-04 14:54 | PD.ID.CON ---
History of Present Illness Service ID Consult Requested By Reason for Consult Evaluation and Mment of Left forearm abscess possible myositis. Primary Care Physician No Primary Care Physician Diagnoses: History of Present Illness is a 37 y/o CF with PMHx of stage II cervical cancer, lymphoma, recent hospitalization secondary to left arm infection/compartment syndrome status post fasciotomies who presented with right arm abscess/cellulitis. Patient stated about 4 days ago she had a bee stung her on her left forearm which progressively got worse and resulted in severe swelling. She used over- the-counter remedies including creams(Aspercreme) and Benadryl with no improvement. She stated on day 4 she started seeing black spots and pus come out of her arm so she went to the emergency department. In the emergency department and I&D was performed and she was sent home on antibiotics. Patient stated that she was told if there is no improvement or worsening symptoms to return to the emergency department which is why she presents today. Patient denies any fevers or chills. Denies any history of any IV drug use or illicit drug use. Cultures from that visit are cw oral gillian: Eikenella, Hemophilus, Strep Not ABD. Patient has been s/b and intraop cultures cw oral gillian same kind again. ID consulted for evaluation and Mment of Left forearm abscess with ? myositis. Review of Systems ROS Limitations: Poor Historian Past Family Social History Allergies: Coded Allergies: adhesive (Verified Allergy, Severe, Rash, 12/03/17) penicillin G (Verified Allergy, Severe, Anaphylaxis, 12/03/17) Past Medical History Stage II cervical cancer Lymphoma Endometriosis Past Surgical History Multiple abdominal laparoscopic surgeries mostly due to lysis of adhesions. Reported Medications Reported Meds & Active Scripts Active Clindamycin (Clindamycin HCl) 150 Mg Cap 450 Mg PO Q8HR 10 Days Active Ordered Medications Current Medications Medications (Trade) Dose Ordered Sig/Love Route Start Time Stop Time Status Last Admin (Toradol Inj) 30 mg Q6H PRN IV PUSH 12/03/17 09:30 12/09/17 09:29 12/05/17 06:09 Sodium Chloride 1,000 ml @ 100 mls/hr Q10H IV 12/03/17 11:36 12/05/17 02:55 (NS Flush) 2 ml UNSCH PRN IV FLUSH 12/03/17 11:45 (NS Flush) 2 ml BID IV FLUSH 12/03/17 21:00 12/03/17 21:55 (Zofran Inj) 4 mg Q6H PRN IVP 12/03/17 11:45 12/04/17 21:53 (Narcan Inj) 0.4 mg UNSCH PRN IV PUSH 12/03/17 11:45 (Milk Of Magnesia Liq) 30 ml Q12H PRN PO 12/03/17 11:45 (Senokot) 17.2 mg Q12H PRN PO 12/03/17 11:45 (Dulcolax Supp) 10 mg DAILY PRN RECTAL 12/03/17 11:45 Vancomycin HCl 1000 mg/Sodium Chloride 250 ml @ 250 mls/hr Q12H IV 12/03/17 22:00 12/04/17 21:55 Pharmacy Profile Note 0 ml @ 0 mls/hr UNSCH OTHER 12/03/17 11:45 Aztreonam 1000 mg/ Sodium Chloride 100 ml @ 200 mls/hr Q8H IV 12/03/17 18:00 12/05/17 02:55 (Habitrol 21 Mg Patch.24 Hr) 1 patch DAILY T-DERMAL 12/03/17 11:45 12/04/17 08:25 Miscellaneous Information 1 HS T-DERMAL 12/03/17 21:00 12/05/17 00:06 Miscellaneous Information SPECIFIC LAB TO BE DRAWN:[facility]... ONCE ONCE .XX 12/05/17 09:45 12/05/17 09:46 ([place] 7.5-325 Mg) 1 tab Q4H PRN PO 12/04/17 09:15 12/04/17 15:36 ([place] 7.5-325 Mg) 2 tab Q4H PRN PO 12/04/17 09:15 12/05/17 03:03 Lactated Ringer's 1,000 ml @ 30 mls/hr Q24H PRN IV 12/05/17 04:45 12/08/17 04:44 Sodium Chloride 500 ml @ 30 mls/hr [id number] PRN IV 12/05/17 04:45 12/08/17 04:44 (Betadine 5% Antisepsis Kit) 1 applic RISK ADVISOR PRN EACH NARE 12/05/17 04:45 12/08/17 04:44 (Chlorhexidine 2% Cloth) 3 pack RISK ADVISOR PRN TOPICAL 12/05/17 04:45 12/08/17 04:44 Family History Mother has a history of ovarian cancer. Social History Patient smokes 1 pack per day since the age of 11. Denies any alcohol or illicit drug use. Physical Exam Vital Signs Vital Signs Date Time Temp Pulse Resp B/P (MAP) Pulse Ox O2 Delivery O2 Flow Rate FiO2 12/04/17 12:00 98.6 78 17 108/53 (71) 97 12/04/17 05:14 98.4 62 19 94/54 (67) 94 12/04/17 01:16 18 12/04/17 00:29 97.3 73 19 104/56 (72) 96 12/03/17 22:43 18 12/03/17 20:21 97.8 86 20 94/61 (72) 98 12/03/17 16:55 80 19 92/54 (67) 98 Nasal Cannula 2 12/03/17 15:45 72 19 98/53 (68) 96 Nasal Cannula 2 12/03/17 15:30 78 19 128/81 (97) 96 Nasal Cannula 2 12/03/17 15:25 97.5 86 19 130/75 (93) 100 Nasal Cannula 4 Physical Exam GENERAL: This is a well-nourished, well-developed patient, in no apparent distress. SKIN: No rashes, ecchymoses or lesions. Cool and dry. HEAD: Atraumatic. Normocephalic. No temporal or scalp tenderness. EYES: Pupils equal round and reactive. Extraocular motions intact. No scleral icterus. No injection or drainage. ENT: Nose without bleeding, purulent drainage or septal hematoma. Throat without erythema, tonsillar hypertrophy or exudate. Uvula midline. Airway patent. NECK: Trachea midline. Supple, nontender, no meningeal signs. CARDIOVASCULAR: Regular rate and rhythm without murmurs, gallops, or rubs. RESPIRATORY: Clear to auscultation. Breath sounds equal bilaterally. No wheezes , rales, or rhonchi. GASTROINTESTINAL: Abdomen soft, non-tender, nondistended. MUSCULOSKELETAL: LUE in dressing and wound vac NEUROLOGICAL: Awake and alert. Cranial nerves II through XII intact. Motor and sensory grossly within normal limits. Five out of 5 muscle strength in all muscle groups. Normal speech. Psych cooperative IV line sites with no e.o infection Laboratory Laboratory Tests Test 12/04/17 07:43 White Blood Count 10.0 Red Blood Count 4.02 Hemoglobin 11.0 Hematocrit 34.0 Mean Corpuscular Volume 84.5 Mean Corpuscular Hemoglobin 27.3 Mean Corpuscular Hemoglobin Concent 32.3 Red Cell Distribution Width 15.5 Platelet Count 216 Mean Platelet Volume 7.9 Blood Urea Nitrogen 11 Creatinine 0.59 Random Glucose 67 Calcium Level 8.1 Sodium Level 142 Potassium Level 3.9 Chloride Level 112 Carbon Dioxide Level 20.9 Anion Gap 9 Estimat Glomerular Filtration Rate 114 Date/Time Source Procedure Growth Status 12/03/17 09:27 Blood Peripheral Aerobic Blood Culture - Preliminary NO GROWTH IN 1 DAY Resulted 12/03/17 09:27 Blood Peripheral Anaerobic Blood Culture - Preliminary NO GROWTH IN 1 DAY Resulted 12/03/17 15:00 Wound Arm Fungal Smear - Final NO FUNGAL ELEMENTS SEEN. Resulted 12/03/17 15:00 Wound Arm Fungal Culture Pending Resulted Result Diagram: 12/04/17 0743 12/04/17 0743 Imaging Last Impressions Chest X-Ray 12/03/17 0921 Signed Impressions: Service Date/Time: Sunday, December 03, 2017 09:34 - CONCLUSION: Normal examination. Devon Dover MD Upper Extremity CT 12/03/17 0000 Signed Impressions: Service Date/Time: Sunday, December 03, 2017 11:54 - CONCLUSION: Severe soft tissue inflammation the radial aspect of the forearm without underlying abscess or drainable fluid collection. Devon Dover MD Assessment and Plan Assessment and Plan Abscess of Left forearm ? 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 Penicillin allergy Recs: Continue Azactam IV Continue Vanco IV (target 10-15 for now for SSTI) Start Flagyl in am if anaerobes identified. Dw Micro: Eikenella, Strep and Hemophilus on intraop cultures. Follow cultures follow clinically. Hedy Blanco MD Dec 04, 2017 14:54
[2017-12-04 16:00] VITALS: BP 111/58; PULSE 79; RESP 17; TEMP 98.5; O2SAT 98
[2017-12-04 20:10] VITALS: BP 131/68; PULSE 72; RESP 18; TEMP 99.4; O2SAT 99
[2017-12-04] MEDS: REMOVE OLD PATCH T-DERMAL SCH (21:00)
[2017-12-04] MEDS: ONDANSETRON HCL 4 MG/2 ML VIAL IVP PRN (21:53)
[2017-12-04] MEDS ORDERED: ALPRAZolam 0.25 MG TAB PO ONE (23:30)
[2017-12-05] MEDS: REMOVE OLD PATCH T-DERMAL SCH (00:06)
[2017-12-05 00:29] VITALS: BP 127/60; PULSE 65; RESP 18; TEMP 98.4; O2SAT 97
[2017-12-05] MEDS: SODIUM CHLOR 0.9% 1000 ML INJ 1,000 ML IV SCH ×3 (02:55→21:48)
[2017-12-05] MEDS: AZTREONAM INJ 1,000 MG in SODIUM CHLORIDE 0.9% INJ 100 ML IV SCH ×3 (02:55→16:42)
[2017-12-05] MEDS: ACETAMINOPHEN/HYDROcodone 325 MG/7.5 MG TAB PO PRN ×5 (03:03→23:29)
[2017-12-05] MEDS ORDERED: CHLORHEXIDINE GLUCONATE 2 % 1 PACK (2 CLOTHS) TOPICAL PRN (04:45)
[2017-12-05] MEDS ORDERED: LACTATED RINGER'S 1000 ML IV PRN (04:45)
[2017-12-05] MEDS ORDERED: POVIDONE IODINE 5% (ANTISEPSIS KIT) 4 APPLICATIONS EACH NARE PRN (04:45)
[2017-12-05] MEDS ORDERED: SODIUM CHLORID 0.9% 500 ML IV PRN (04:45)
[2017-12-05 05:22] VITALS: BP 113/70; PULSE 64; RESP 18; TEMP 98.3; O2SAT 98
[2017-12-05] MEDS: KETOROLAC TROMETHAMINE 30 MG/ML (IVP) VIAL IV PUSH PRN (06:09)
[2017-12-05 08:00] VITALS: BP 134/72; PULSE 56; RESP 18; TEMP 98.6; O2SAT 98
--- NOTE | 2017-12-05 08:18 | HHI.PR ---
Subjective Remarks in no acute distress. but very uncomfortable with the pain to the left arm. remains afebrile. Objective Vitals Vital Signs Date Time Temp Pulse Resp B/P (MAP) Pulse Ox O2 Delivery O2 Flow Rate FiO2 12/05/17 05:22 98.3 64 18 113/70 (84) 98 12/05/17 04:04 18 12/05/17 00:29 98.4 65 18 127/60 (82) 97 12/04/17 23:00 18 12/04/17 20:10 99.4 72 18 131/68 (89) 99 12/04/17 16:00 98.5 79 17 111/58 (75) 98 12/04/17 12:00 98.6 78 17 108/53 (71) 97 I/O 12/04/17 12/04/17 12/04/17 12/05/17 12/05/17 12/05/17 07:00 15:00 23:00 07:00 15:00 23:00 Intake Total 1450 ml Balance 1450 ml Intake IV Total 1450 ml # Voids 2 1 4 # Bowel Movements 1 Result Diagram: 12/04/17 0743 12/04/17 0743 Imaging Last Impressions Chest X-Ray 12/03/17 0921 Signed Impressions: Service Date/Time: Sunday, December 03, 2017 09:34 - CONCLUSION: Normal examination. Devon Dover MD Upper Extremity CT 12/03/17 0000 Signed Impressions: Service Date/Time: Sunday, December 03, 2017 11:54 - CONCLUSION: Severe soft tissue inflammation the radial aspect of the forearm without underlying abscess or drainable fluid collection. Devon Dover MD Objective Remarks GENERAL: This is a well-nourished, well-developed patient, in no apparent distress. CARDIOVASCULAR: Regular rate and regular rhythm without murmurs, gallops, or rubs. RESPIRATORY: Clear to auscultation. Breath sounds equal bilaterally. No wheezes , rales, or rhonchi. GASTROINTESTINAL: Abdomen soft, non-tender, nondistended. Normal, active bowel sounds MUSCULOSKELETAL: left forearm covered with clean dressing. NEURO: Alert & Oriented x4 to person, place, time, situation. Moves all ext x4 Procedures I/D of the left forearm abscess with wound vac application Medications and IVs Inpatient Medications Acetaminophen/ Hydrocodone Bitart ([place] 7.5-325 Mg) 2 tab Q4H PRN PO PAIN 6- 10 Last administered on 12/05/17at 03:03; Start 12/04/17 at 09:15 Alprazolam (Xanax) 0.25 mg ONCE ONCE PO Last administered on 12/05/17at 00:09; Start 12/04/17 at 23:30; Stop 12/04/17 at 23:31; Status DC Aztreonam 1000 mg/ Sodium Chloride 100 ml @ 200 mls/hr Q8H IV Last administered on 12/05/17at 02:55; Start 12/03/17 at 18:00 Aztreonam 2000 mg/ Sodium Chloride 100 ml @ 200 mls/hr ONCE STAT IV Last administered on 12/03/17at 11:13; Start 12/03/17 at 09:21; Stop 12/03/17 at 09:50; Status DC Bisacodyl (Dulcolax Supp) 10 mg DAILY PRN RECTAL SEVERE CONSITIPATION; Start at 11:45 Chlorhexidine Gluconate (Chlorhexidine 2% Cloth) 3 pack JUNK REMOVAL SPECIALIST PRN TOPICAL SEE LABEL COMMENTS; Start 12/05/17 at 04:45; Stop 12/08/17 at 04:44 Hydromorphone HCl (Dilaudid Pf Inj) 1 mg ONCE ONCE IV PUSH Last administered on 12/04/17at 13:01; Start 12/04/17 at 11:45; Stop 12/04/17 at 11:46; Status DC Ketorolac Tromethamine (Toradol Inj) 30 mg Q6H PRN IV PUSH BREAKTHROUGH PAIN Last administered on 12/05/17at 06:09; Start 12/03/17 at 09:30; Stop 12/09/17 at 09: 29 Lactated Ringer's 1,000 ml @ 30 mls/hr Q24H PRN IV SEE LABEL COMMENTS; Start at 04:45; Stop 12/08/17 at 04:44 Magnesium Hydroxide (Milk Of Magnesia Liq) 30 ml Q12H PRN PO Mild constipation ; Start 12/03/17 at 11:45 Miscellaneous Information ALL NURSING DEPARTME... UNSCH PRN .XX SEE LABEL COMMENTS; Start 12/03/17 at 15:30; Stop 12/04/17 at 15:29; Status DC Naloxone HCl (Narcan Inj) 0.4 mg UNSCH PRN IV PUSH SEE LABEL COMMENTS; Start at 11:45 Nicotine (Habitrol 21 Mg Patch.24 Hr) 1 patch DAILY T-DERMAL Last administered on 12/04/17at 08:25; Start 12/03/17 at 11:45 Ondansetron HCl (Zofran Inj) 4 mg Q6H PRN IVP NAUSEA OR VOMITING Last administered on 12/04/17at 21:53; Start 12/03/17 at 11:45 Pharmacy Profile Note 0 ml @ 0 mls/hr UNSCH OTHER ; Start 12/03/17 at 11:45 Povidone Iodine (Betadine 5% Antisepsis Kit) 1 applic JUNK REMOVAL SPECIALIST PRN EACH NARE SEE LABEL COMMENTS; Start 12/05/17 at 04:45; Stop 12/08/17 at 04:44 Sennosides (Senokot) 17.2 mg Q12H PRN PO Moderate constipation; Start 12/03/17 at 11:45 Sodium Chloride 500 ml @ 30 mls/hr [id number] PRN IV SEE LABEL COMMENTS; Start 12/05/17 at 04:45; Stop 12/08/17 at 04:44 Sodium Chloride (NS Flush) 2 ml BID IV FLUSH Last administered on 12/03/17at 21: 55; Start 12/03/17 at 21:00 Vancomycin HCl 1000 mg/Sodium Chloride 250 ml @ 250 mls/hr Q12H IV Last administered on 12/04/17at 21:55; Start 12/03/17 at 22:00 A/P Assessment and Plan A/P Left forearm abscess/cellulitis -Status post I&D few days ago in the emergency department. Failed outpatient antibiotics/therapy with clindamycin. Cultures from 12/01 shows strep not A,E,D and Haemophilus. No signs of compartment syndrome. -Dr. Anton Blanchard consulted. s/p I/D of the left forearm abscess and wound vac placement. - We will continue with IV antibiotics per ID. -continue with pain control;pain is not controlled; will start on norco with IV Dilaudid for breakthrough pain. will monitor and adjust the pain regimen as needed. Tobacco dependence -Smoking cessation. Education given. Patient requesting nicotine patch. DVT prophylaxis -Low risk encourage ambulation. Discharge Planning awaiting further hand surgical interventions. Haleigh Monroe MD Dec 05, 2017 08:18
[2017-12-05] MEDS: NICOTINE 21 MG/24 HR PATCH T-DERMAL SCH (08:53)
[2017-12-05] MEDS ORDERED: HYDROmorphone HCL PF 1 MG/ML VIAL IV PUSH PRN (09:00)
[2017-12-05] MEDS: ONDANSETRON HCL 4 MG/2 ML VIAL IVP PRN ×2 (09:03→15:19)
[2017-12-05] MEDS: metroNIDAZOLE 500 MG TAB PO SCH ×3 (09:04→21:47)
[2017-12-05] MEDS: SODIUM CHLORIDE 0.9% FLUSH 10 ML FLUSH IV FLUSH SCH ×2 (09:05→21:47)
[2017-12-05] MEDS ORDERED: PHARMACY ORDERED LAB ONE (09:45)
[2017-12-05] MEDS: HYDROmorphone HCL PF 2 MG/ML VIAL IV PUSH PRN ×3 (13:30→21:48)
[2017-12-05] MEDS: VANCOMYCIN INJ 1,000 MG in SODIUM CHLOR 0.9% 250 ML INJ 250 ML IV SCH (13:35)
--- NOTE | 2017-12-05 14:15 | HHI.PR ---
Subjective Remarks complain of pain patient switched off the wound vac at 3 am this morning denies any tingling or numbness Objective Vital Signs Date Time Temp Pulse Resp B/P (MAP) Pulse Ox O2 Delivery O2 Flow Rate FiO2 12/05/17 08:00 98.6 56 18 134/72 (92) 98 12/05/17 05:22 98.3 64 18 113/70 (84) 98 12/05/17 04:04 18 12/05/17 00:29 98.4 65 18 127/60 (82) 97 12/04/17 23:00 18 12/04/17 20:10 99.4 72 18 131/68 (89) 99 12/04/17 16:00 98.5 79 17 111/58 (75) 98 I/O 12/04/17 12/04/17 12/04/17 12/05/17 12/05/17 12/05/17 07:00 15:00 23:00 07:00 15:00 23:00 Intake Total 1450 ml Balance 1450 ml Intake IV Total 1450 ml # Voids 2 1 4 # Bowel Movements 1 left upper extremity: vac in place not connected. Vac was removed, healing granulation, wound measuring 5 cm in diameter surrounding induration noted no drainage able to make a fist intact sensation distally Result Diagram: 12/04/17 0743 12/04/17 0743 Assessment and Plan Assessment and Plan 37 year old female s/p I and D, wound vac application POD 2 Plan: wound vac removed adaptic and dry dressing applied wound care nurse consult continue with iv antibiotics hand surgery will follow. Anton Oseguera MD Dec 05, 2017 14:15
[2017-12-05 16:00] VITALS: BP 139/66; PULSE 71; RESP 18; TEMP 98.1; O2SAT 99
--- NOTE | 2017-12-05 16:29 | PD.WCN.NOT ---
Wound Consult Description: Received consult from Doctor Oseguera for wound management of L forearm surgical wound. Communicated with: Rn Bonita mancera and Doctor Oseguera Recommendation: 1.Cleanse wound to L forearm with normal saline. 2. Apply lidocaine topical gel or ointment to wound bed with gauze pad and leave in place for 5 minutes and remove. 3.Loosely Pack wound with Maxorb AG cut into 1/4 inch strip to undermined area at 11o'clock 4. Apply larger piece Maxorb AG to fit wound bed 5.Cover with dry 4x4 gauze pads, and ABD pad. 6.. Secure dressing with rolled gauze and stockinette. 7. Change dressing every 3 days or PRN if saturated or dislodged Additional Information: Patient seen on for evaluation of wound to L forearm. Patient is s/p I& D of wound to L forearm. Surgery date was 12/03/2017. Patient initially had wound VAC placement after I&D with plans to go back to surgery for additional debridement. Per RN patient removed wound VAC dressing last night. Patient states," Doctor removed wound VAC dressing today and and I was in so much pain from it, and I didn't want it back on." Removed ABD and gauze dressings in place to reveal open wound to L forearm. Wound bed presents with 100% dull red granulation tissue. Cleansed wound with normal saline. Patient is noted with undermining at 11 o'clock and 6 o'clock depth can't be determined due to patient tolerance.Wound measures 4cm x 3.6cm x 0.5cm. Wound drainage is minimal to moderate and sero-sanguinous without odor. Periwound is noted with slight induration circumferentially ~0.5cm out from wound bed. Patient will not allow blurb writer to pack wound at this time.Applied oil emulsion gauze over wound bed and covered with dry 4x4 gauze pads, secured with rolled gauze and stockinette. Destinee Sanders [facility] Dec 05, 2017 16:29
[2017-12-05] MEDS: ALPRAZolam 0.25 MG TAB PO PRN (16:40)
[2017-12-05] MEDS ORDERED: LIDOCAINE 2% JELLY 30 ML TUBE TOPICAL PRN (18:00)
[2017-12-05 21:00] VITALS: BP 117/71; PULSE 60; RESP 16; TEMP 98.4; O2SAT 98
[2017-12-05] MEDS: VANCOMYCIN INJ 1,500 MG in SODIUM CHLORID 0.9% 500 ML INJ 500 ML IV SCH (21:47)
[2017-12-05] MEDS ORDERED: VANCOMYCIN INJ 1,250 MG in SODIUM CHLOR 0.9% 250 ML INJ 250 ML IV SCH (22:00)
[2017-12-06 00:20] VITALS: BP 127/58; PULSE 87; RESP 17; TEMP 98.3; O2SAT 97
[2017-12-06] MEDS: ALPRAZolam 0.25 MG TAB PO PRN ×3 (00:33→22:41)
[2017-12-06] MEDS: AZTREONAM INJ 1,000 MG in SODIUM CHLORIDE 0.9% INJ 100 ML IV SCH ×3 (02:14→18:50)
[2017-12-06] MEDS: HYDROmorphone HCL PF 2 MG/ML VIAL IV PUSH PRN ×6 (02:16→22:36)
[2017-12-06] MEDS: ACETAMINOPHEN/HYDROcodone 325 MG/7.5 MG TAB PO PRN ×5 (04:49→20:58)
[2017-12-06] MEDS: metroNIDAZOLE 500 MG TAB PO SCH ×3 (04:50→20:58)
[2017-12-06 05:00] VITALS: BP 133/84; PULSE 69; RESP 20; TEMP 97.6; O2SAT 98
[2017-12-06 07:23] LABS: CREATININE 0.62 MG/DL (0.50-1.00)
--- NOTE | 2017-12-06 09:01 | HHI.PR ---
Subjective Remarks in no acute distress. looks more comfortable and says that ' now pain is tolerable'. no fever. no new complaints. Objective Vitals Vital Signs Date Time Temp Pulse Resp B/P (MAP) Pulse Ox O2 Delivery O2 Flow Rate FiO2 12/06/17 06:25 18 12/06/17 05:00 97.6 69 20 133/84 (100) 98 12/06/17 02:52 18 12/06/17 00:20 98.3 87 17 127/58 (81) 97 12/05/17 21:00 98.4 60 16 117/71 (86) 98 12/05/17 16:00 98.1 71 18 139/66 (90) 99 I/O 12/05/17 12/05/17 12/05/17 12/06/17 12/06/17 12/06/17 07:00 15:00 23:00 07:00 15:00 23:00 Intake Total 350 ml 800 ml 825 ml Balance 350 ml 800 ml 825 ml Intake Oral 800 ml 825 ml IV Total 350 ml # Voids 1 4 # Bowel Movements 0 0 Result Diagram: 12/04/17 0743 12/06/17 0603 Imaging Last Impressions Chest X-Ray 12/03/17 0921 Signed Impressions: Service Date/Time: Sunday, December 03, 2017 09:34 - CONCLUSION: Normal examination. Devon Dover MD Upper Extremity CT 12/03/17 0000 Signed Impressions: Service Date/Time: Sunday, December 03, 2017 11:54 - CONCLUSION: Severe soft tissue inflammation the radial aspect of the forearm without underlying abscess or drainable fluid collection. Devon Dover MD Objective Remarks GENERAL: This is a well-nourished, well-developed patient, in no apparent distress. CARDIOVASCULAR: Regular rate and regular rhythm without murmurs, gallops, or rubs. RESPIRATORY: Clear to auscultation. Breath sounds equal bilaterally. No wheezes , rales, or rhonchi. GASTROINTESTINAL: Abdomen soft, non-tender, nondistended. Normal, active bowel sounds MUSCULOSKELETAL: left forearm covered with clean dressing. NEURO: Alert & Oriented x4 to person, place, time, situation. Moves all ext x4 Procedures I/D of the left forearm abscess with wound vac application Medications and IVs Inpatient Medications Acetaminophen/ Hydrocodone Bitart ([place] 7.5-325 Mg) 2 tab Q4H PRN PO PAIN 6- 10 Last administered on 12/06/17at 04:49; Start 12/04/17 at 09:15 Alprazolam (Xanax) 0.25 mg Q8H PRN PO ANXIETY Last administered on 12/06/17at 00: 33; Start 12/05/17 at 16:30 Aztreonam 1000 mg/ Sodium Chloride 100 ml @ 200 mls/hr Q8H IV Last administered on 12/06/17at 02:14; Start 12/03/17 at 18:00 Aztreonam 2000 mg/ Sodium Chloride 100 ml @ 200 mls/hr ONCE STAT IV Last administered on 12/03/17at 11:13; Start 12/03/17 at 09:21; Stop 12/03/17 at 09:50; Status DC Bisacodyl (Dulcolax Supp) 10 mg DAILY PRN RECTAL SEVERE CONSITIPATION; Start at 11:45 Chlorhexidine Gluconate (Chlorhexidine 2% Cloth) 3 pack DERRICK WORKER WELL SERVICE PRN TOPICAL SEE LABEL COMMENTS; Start 12/05/17 at 04:45; Stop 12/08/17 at 04:44 Hydromorphone HCl (Dilaudid Pf Inj) 1 mg Q4H PRN IV PUSH BREAKTHROUGH PAIN Last administered on 12/06/17at 06:29; Start 12/05/17 at 13:00 Ketorolac Tromethamine (Toradol Inj) 30 mg Q6H PRN IV PUSH BREAKTHROUGH PAIN Last administered on 12/05/17at 06:09; Start 12/03/17 at 09:30; Stop 12/05/17 at 08: 18; Status DC Lactated Ringer's 1,000 ml @ 30 mls/hr Q24H PRN IV SEE LABEL COMMENTS; Start at 04:45; Stop 12/08/17 at 04:44 Lidocaine HCl (Xylocaine 2% Jelly) APPLY LIDOCAINE 2% JE... UNSCH PRN TOPICAL SEE LABEL COMMENTS; Start 12/05/17 at 18:00 Magnesium Hydroxide (Milk Of Magnesia Liq) 30 ml Q12H PRN PO Mild constipation ; Start 12/03/17 at 11:45 Metronidazole (Flagyl) 500 mg Q8HR PO Last administered on 12/06/17at 04:50; Start 12/05/17 at 09:00 Miscellaneous Information SPECIFIC LAB TO BE DRAWN:VANCOMYCIN TROUGH DATE TO... ONCE ONCE .XX ; Start 12/07/17 at 09:45; Stop 12/07/17 at 09:46 Naloxone HCl (Narcan Inj) 0.4 mg UNSCH PRN IV PUSH SEE LABEL COMMENTS; Start at 11:45 Nicotine (Habitrol 21 Mg Patch.24 Hr) 1 patch DAILY T-DERMAL Last administered on 12/05/17at 08:53; Start 12/03/17 at 11:45 Ondansetron HCl (Zofran Inj) 4 mg Q6H PRN IVP NAUSEA OR VOMITING Last administered on 12/05/17at 15:19; Start 12/03/17 at 11:45 Pharmacy Profile Note 0 ml @ 0 mls/hr UNSCH OTHER ; Start 12/03/17 at 11:45 Povidone Iodine (Betadine 5% Antisepsis Kit) 1 applic DERRICK WORKER WELL SERVICE PRN EACH NARE SEE LABEL COMMENTS; Start 12/05/17 at 04:45; Stop 12/08/17 at 04:44 Sennosides (Senokot) 17.2 mg Q12H PRN PO Moderate constipation; Start 12/03/17 at 11:45 Sodium Chloride 500 ml @ 30 mls/hr [id number] PRN IV SEE LABEL COMMENTS; Start 12/05/17 at 04:45; Stop 12/08/17 at 04:44 Sodium Chloride (NS Flush) 2 ml BID IV FLUSH Last administered on 12/05/17at 21: 47; Start 12/03/17 at 21:00 Vancomycin HCl 1000 mg/Sodium Chloride 250 ml @ 250 mls/hr Q12H IV Last administered on 12/05/17at 13:35; Start 12/03/17 at 22:00; Stop 12/05/17 at 15:37; Status DC Vancomycin HCl 1500 mg/Sodium Chloride 515 ml @ 250 mls/hr Q12H IV Last administered on 12/05/17at 21:47; Start 12/05/17 at 22:00 A/P Assessment and Plan A/P Left forearm abscess/cellulitis -Status post I&D few days ago in the emergency department. Failed outpatient antibiotics/therapy with clindamycin. Cultures from 12/01 shows strep not A,E,D and Haemophilus. No signs of compartment syndrome. -Dr. Anton Blanchard consulted. s/p I/D of the left forearm abscess and wound vac placement; wound vac has been removed. - We will continue with IV antibiotics per ID. -continue with pain control- will monitor and adjust the regimen as needed. Tobacco dependence -Smoking cessation. Education given. Patient requesting nicotine patch. DVT prophylaxis -Low risk encourage ambulation. Discharge Planning awaiting further hand surgery and ID f/u and recommendations. Haleigh Monroe MD Dec 06, 2017 09:01
[2017-12-06] MEDS: REMOVE OLD PATCH T-DERMAL SCH (09:22)
[2017-12-06] MEDS: NICOTINE 21 MG/24 HR PATCH T-DERMAL SCH (09:22)
[2017-12-06] MEDS: ONDANSETRON HCL 4 MG/2 ML VIAL IVP PRN (09:39)
[2017-12-06] MEDS: SODIUM CHLORIDE 0.9% FLUSH 10 ML FLUSH IV FLUSH SCH ×2 (09:43→20:59)
[2017-12-06] MEDS: VANCOMYCIN INJ 1,500 MG in SODIUM CHLORID 0.9% 500 ML INJ 500 ML IV SCH ×2 (10:36→20:59)
[2017-12-06] MEDS: SODIUM CHLOR 0.9% 1000 ML INJ 1,000 ML IV SCH ×2 (10:55→22:39)
[2017-12-06 16:59] VITALS: BP 145/87; PULSE 79; RESP 20; TEMP 98.2; O2SAT 99
[2017-12-06 21:00] VITALS: BP 139/86; PULSE 77; RESP 22; TEMP 98; O2SAT 99
[2017-12-07 00:30] VITALS: BP 130/80; PULSE 59; RESP 19; TEMP 98; O2SAT 98
[2017-12-07] MEDS: ACETAMINOPHEN/HYDROcodone 325 MG/7.5 MG TAB PO PRN ×7 (00:55→23:37)
[2017-12-07] MEDS: AZTREONAM INJ 1,000 MG in SODIUM CHLORIDE 0.9% INJ 100 ML IV SCH ×3 (02:28→17:58)
[2017-12-07] MEDS: HYDROmorphone HCL PF 2 MG/ML VIAL IV PUSH PRN ×5 (02:28→21:57)
[2017-12-07 04:20] VITALS: BP 125/80; PULSE 60; RESP 17; TEMP 97.9; O2SAT 99
[2017-12-07] MEDS: SODIUM CHLOR 0.9% 1000 ML INJ 1,000 ML IV SCH ×2 (05:36→15:36)
[2017-12-07] MEDS: metroNIDAZOLE 500 MG TAB PO SCH ×3 (06:00→22:00)
[2017-12-07 08:00] VITALS: BP 145/70; PULSE 60; RESP 18; TEMP 98.7; O2SAT 97
[2017-12-07] MEDS: NICOTINE 21 MG/24 HR PATCH T-DERMAL SCH (08:15)
[2017-12-07] MEDS: ALPRAZolam 0.25 MG TAB PO PRN ×2 (08:15→17:54)
[2017-12-07] MEDS: SODIUM CHLORIDE 0.9% FLUSH 10 ML FLUSH IV FLUSH SCH ×2 (08:16→21:57)
[2017-12-07] MEDS ORDERED: PHARMACY ORDERED LAB ONE (09:45)
[2017-12-07] MEDS: VANCOMYCIN INJ 1,500 MG in SODIUM CHLORID 0.9% 500 ML INJ 500 ML IV SCH ×2 (10:00→21:58)
[2017-12-07] MEDS ORDERED: INFLUENZA VIRUS VACCINE (QUADRIVALENT) 0.5 ML SYR IM ONE (10:00)
--- NOTE | 2017-12-07 10:24 | HHI.PR ---
Subjective Remarks in no acute distress. but complaining of pain to the left arm. no fever. Objective Vitals Vital Signs Date Time Temp Pulse Resp B/P (MAP) Pulse Ox O2 Delivery O2 Flow Rate FiO2 12/07/17 08:00 98.7 60 18 145/70 (95) 97 12/07/17 04:20 97.9 60 17 125/80 (95) 99 12/07/17 00:30 98.0 59 19 130/80 (97) 98 12/06/17 21:00 98.0 77 22 139/86 (103) 99 12/06/17 16:59 98.2 79 20 145/87 (106) 99 I/O 12/06/17 12/06/17 12/06/17 12/07/17 12/07/17 12/07/17 06:59 14:59 22:59 06:59 14:59 22:59 Intake Total 825 ml 1840 ml 1500 ml Balance 825 ml 1840 ml 1500 ml Intake Oral 825 ml 1840 ml 1500 ml # Voids 4 7 6 # Bowel Movements 0 0 0 Result Diagram: 12/04/17 0743 12/06/17 0603 Imaging Last Impressions Chest X-Ray 12/03/17 0921 Signed Impressions: Service Date/Time: Sunday, December 03, 2017 09:34 - CONCLUSION: Normal examination. Devon Dover MD Upper Extremity CT 12/03/17 0000 Signed Impressions: Service Date/Time: Sunday, December 03, 2017 11:54 - CONCLUSION: Severe soft tissue inflammation the radial aspect of the forearm without underlying abscess or drainable fluid collection. Devon Dover MD Objective Remarks GENERAL: This is a well-nourished, well-developed patient, in no apparent distress. CARDIOVASCULAR: Regular rate and regular rhythm without murmurs, gallops, or rubs. RESPIRATORY: Clear to auscultation. Breath sounds equal bilaterally. No wheezes , rales, or rhonchi. GASTROINTESTINAL: Abdomen soft, non-tender, nondistended. Normal, active bowel sounds MUSCULOSKELETAL: left forearm covered with clean dressing. NEURO: Alert & Oriented x4 to person, place, time, situation. Moves all ext x4 Procedures I/D of the left forearm abscess with wound vac application Medications and IVs Inpatient Medications Acetaminophen/ Hydrocodone Bitart ([place] 7.5-325 Mg) 2 tab Q4H PRN PO PAIN 6- 10 Last administered on 12/07/17at 06:00; Start 12/04/17 at 09:15 Alprazolam (Xanax) 0.25 mg Q8H PRN PO ANXIETY Last administered on 12/07/17at 08: 15; Start 12/05/17 at 16:30 Aztreonam 1000 mg/ Sodium Chloride 100 ml @ 200 mls/hr Q8H IV Last administered on 12/07/17at 02:28; Start 12/03/17 at 18:00 Aztreonam 2000 mg/ Sodium Chloride 100 ml @ 200 mls/hr ONCE STAT IV Last administered on 12/03/17at 11:13; Start 12/03/17 at 09:21; Stop 12/03/17 at 09:50; Status DC Bisacodyl (Dulcolax Supp) 10 mg DAILY PRN RECTAL SEVERE CONSITIPATION; Start at 11:45 Chlorhexidine Gluconate (Chlorhexidine 2% Cloth) 3 pack SHEET METAL DUCT INSTALLER HELPER PRN TOPICAL SEE LABEL COMMENTS; Start 12/05/17 at 04:45; Stop 12/08/17 at 04:44 Hydromorphone HCl (Dilaudid Pf Inj) 1 mg Q4H PRN IV PUSH BREAKTHROUGH PAIN Last administered on 12/07/17at 08:14; Start 12/05/17 at 13:00 Influenza Virus Vaccine (Flu (Quadrivalent) Vaccine Inj) 0.5 ml ONCE ONCE IM ; Start 12/07/17 at 10:00; Stop 12/07/17 at 10:01; Status DC Ketorolac Tromethamine (Toradol Inj) 30 mg Q6H PRN IV PUSH BREAKTHROUGH PAIN Last administered on 12/05/17at 06:09; Start 12/03/17 at 09:30; Stop 12/05/17 at 08: 18; Status DC Lactated Ringer's 1,000 ml @ 30 mls/hr Q24H PRN IV SEE LABEL COMMENTS; Start at 04:45; Stop 12/08/17 at 04:44 Lidocaine HCl (Xylocaine 2% Jelly) APPLY LIDOCAINE 2% JE... UNSCH PRN TOPICAL SEE LABEL COMMENTS; Start 12/05/17 at 18:00 Magnesium Hydroxide (Milk Of [place] Liq) 30 ml Q12H PRN PO Mild constipation ; Start 12/03/17 at 11:45 Metronidazole (Flagyl) 500 mg Q8HR PO Last administered on 12/07/17at 06:00; Start 12/05/17 at 09:00 Miscellaneous Information SPECIFIC LAB TO BE DRAWN:VANCOMYCIN TROUGH DATE TO... ONCE ONCE .XX ; Start 12/07/17 at 09:45; Stop 12/07/17 at 09:46; Status DC Naloxone HCl (Narcan Inj) 0.4 mg UNSCH PRN IV PUSH SEE LABEL COMMENTS; Start at 11:45 Nicotine (Habitrol 21 Mg Patch.24 Hr) 1 patch DAILY T-DERMAL Last administered on 12/07/17at 08:15; Start 12/03/17 at 11:45 Ondansetron HCl (Zofran Inj) 4 mg Q6H PRN IVP NAUSEA OR VOMITING Last administered on 12/06/17at 09:39; Start 12/03/17 at 11:45 Pharmacy Profile Note 0 ml @ 0 mls/hr UNSCH OTHER ; Start 12/03/17 at 11:45 Povidone Iodine (Betadine 5% Antisepsis Kit) 1 applic SHEET METAL DUCT INSTALLER HELPER PRN EACH NARE SEE LABEL COMMENTS; Start 12/05/17 at 04:45; Stop 12/08/17 at 04:44 Sennosides (Senokot) 17.2 mg Q12H PRN PO Moderate constipation; Start 12/03/17 at 11:45 Sodium Chloride 500 ml @ 30 mls/hr [id number] PRN IV SEE LABEL COMMENTS; Start 12/05/17 at 04:45; Stop 12/08/17 at 04:44 Sodium Chloride (NS Flush) 2 ml BID IV FLUSH Last administered on 12/07/17at 08: 16; Start 12/03/17 at 21:00 Vancomycin HCl 1000 mg/Sodium Chloride 250 ml @ 250 mls/hr Q12H IV Last administered on 12/05/17at 13:35; Start 12/03/17 at 22:00; Stop 12/05/17 at 15:37; Status DC Vancomycin HCl 1500 mg/Sodium Chloride 515 ml @ 250 mls/hr Q12H IV Last administered on 12/06/17at 20:59; Start 12/05/17 at 22:00 A/P Assessment and Plan A/P Left forearm abscess/cellulitis -Status post I&D few days ago in the emergency department. Failed outpatient antibiotics/therapy with clindamycin. Cultures from 12/01 shows strep not A,E,D and Haemophilus. No signs of compartment syndrome. -Dr. Anton Blanchard consulted. s/p I/D of the left forearm abscess and wound vac placement; wound vac has been removed. - We will continue with IV antibiotics per ID. -continue with pain control- Tobacco dependence -Smoking cessation. Education given. Patient requesting nicotine patch. DVT prophylaxis -Low risk encourage ambulation. Discharge Planning when cleared by ID and hand surgery. Haleigh Monroe MD Dec 07, 2017 10:24
[2017-12-07 12:00] VITALS: BP 145/68; PULSE 83; RESP 18; TEMP 99.1; O2SAT 98
[2017-12-07] MEDS: ONDANSETRON HCL 4 MG/2 ML VIAL IVP PRN (13:22)
[2017-12-07 16:00] VITALS: BP 151/71; PULSE 65; RESP 18; TEMP 98.3; O2SAT 98
--- NOTE | 2017-12-07 17:33 | HHI.PR ---
Subjective Remarks complain of pain denies any tingling or numbness Objective Vital Signs Date Time Temp Pulse Resp B/P (MAP) Pulse Ox O2 Delivery O2 Flow Rate FiO2 12/07/17 12:00 99.1 83 18 145/68 (93) 98 12/07/17 08:00 98.7 60 18 145/70 (95) 97 12/07/17 04:20 97.9 60 17 125/80 (95) 99 12/07/17 00:30 98.0 59 19 130/80 (97) 98 12/06/17 21:00 98.0 77 22 139/86 (103) 99 I/O 12/06/17 12/06/17 12/06/17 12/07/17 12/07/17 12/07/17 07:00 15:00 23:00 07:00 15:00 23:00 Intake Total 825 ml 1840 ml 1500 ml Balance 825 ml 1840 ml 1500 ml Intake Oral 825 ml 1840 ml 1500 ml # Voids 4 7 6 2 # Bowel Movements 0 0 0 left forearm: dressing in place granulation tissue over the wound bed no drainage wound size about 4 cm in diameter mild surrounding induration intact sensation distally Result Diagram: 12/04/17 0743 12/06/17 0603 Assessment and Plan Assessment and Plan 37 year old female s/p I and D left forearm Plan: adapatic and dry dressing applied antibiotics based on ID recommendations cleared for discharge from hand surgery. dressing changes once in two days. ;clean surrounding skin with alcohol wipes, wound with normal saline, adaptic and dry dressing follow up in office in 1-2 weeks time. Anton Oseguera MD Dec 07, 2017 17:33
[2017-12-07 20:00] VITALS: BP 138/61; PULSE 68; RESP 18; TEMP 97.9; O2SAT 98
[2017-12-07] MEDS: REMOVE OLD PATCH T-DERMAL SCH (21:00)
[2017-12-08] VITALS: BP 139/88; PULSE 55; RESP 18; TEMP 98; O2SAT 95
[2017-12-08] MEDS: SODIUM CHLOR 0.9% 1000 ML INJ 1,000 ML IV SCH ×2 (01:36→10:17)
[2017-12-08] MEDS: AZTREONAM INJ 1,000 MG in SODIUM CHLORIDE 0.9% INJ 100 ML IV SCH ×2 (01:49→10:17)
[2017-12-08] MEDS: HYDROmorphone HCL PF 2 MG/ML VIAL IV PUSH PRN ×2 (01:49→05:51)
[2017-12-08] MEDS: ALPRAZolam 0.25 MG TAB PO PRN (02:31)
[2017-12-08 04:00] VITALS: BP 126/57; PULSE 58; RESP 18; TEMP 97.7; O2SAT 98
[2017-12-08] MEDS: ACETAMINOPHEN/HYDROcodone 325 MG/7.5 MG TAB PO PRN (04:11)
[2017-12-08] MEDS: metroNIDAZOLE 500 MG TAB PO SCH ×2 (05:49→12:58)
[2017-12-08 08:19] LABS: CREATININE 0.78 MG/DL (0.50-1.00)
[2017-12-08 08:20] VITALS: BP 124/65; PULSE 62; RESP 18; TEMP 97.9; O2SAT 97
[2017-12-08] MEDS: SODIUM CHLORIDE 0.9% FLUSH 10 ML FLUSH IV FLUSH SCH (09:00)
[2017-12-08] MEDS: NICOTINE 21 MG/24 HR PATCH T-DERMAL SCH (09:00)
--- NOTE | 2017-12-08 09:41 | HHI.PR ---
Subjective Remarks in no acute distress. complaining of pain to the left forearm. no fever. Objective Vitals Vital Signs Date Time Temp Pulse Resp B/P (MAP) Pulse Ox O2 Delivery O2 Flow Rate FiO2 12/08/17 08:20 97.9 62 18 124/65 (84) 97 12/08/17 04:00 97.7 58 18 126/57 (80) 98 12/08/17 00:00 98.0 55 18 139/88 (105) 95 12/07/17 20:00 97.9 68 18 138/61 (86) 98 12/07/17 16:00 98.3 65 18 151/71 (97) 98 12/07/17 12:00 99.1 83 18 145/68 (93) 98 I/O 12/07/17 12/07/17 12/07/17 12/08/17 12/08/17 12/08/17 07:00 15:00 23:00 07:00 15:00 23:00 Intake Total 1500 ml Balance 1500 ml Intake Oral 1500 ml # Voids 6 2 10 4 # Bowel Movements 0 1 Result Diagram: 12/04/17 0743 12/08/17 0710 Imaging Last Impressions Chest X-Ray 12/03/17 0921 Signed Impressions: Service Date/Time: Sunday, December 03, 2017 09:34 - CONCLUSION: Normal examination. Devon Dover MD Upper Extremity CT 12/03/17 0000 Signed Impressions: Service Date/Time: Sunday, December 03, 2017 11:54 - CONCLUSION: Severe soft tissue inflammation the radial aspect of the forearm without underlying abscess or drainable fluid collection. Devon Dover MD Objective Remarks GENERAL: This is a well-nourished, well-developed patient, in no apparent distress. CARDIOVASCULAR: Regular rate and regular rhythm without murmurs, gallops, or rubs. RESPIRATORY: Clear to auscultation. Breath sounds equal bilaterally. No wheezes , rales, or rhonchi. GASTROINTESTINAL: Abdomen soft, non-tender, nondistended. Normal, active bowel sounds MUSCULOSKELETAL: left forearm covered with clean dressing. NEURO: Alert & Oriented x4 to person, place, time, situation. Moves all ext x4 Procedures I/D of the left forearm abscess with wound vac application Medications and IVs Inpatient Medications Acetaminophen/ Hydrocodone Bitart ([place] 7.5-325 Mg) 2 tab Q4H PRN PO PAIN 6- 10 Last administered on 12/08/17at 04:11; Start 12/04/17 at 09:15 Alprazolam (Xanax) 0.25 mg Q8H PRN PO ANXIETY Last administered on 12/08/17at 02: 31; Start 12/05/17 at 16:30 Aztreonam 1000 mg/ Sodium Chloride 100 ml @ 200 mls/hr Q8H IV Last administered on 12/08/17at 01:49; Start 12/03/17 at 18:00 Aztreonam 2000 mg/ Sodium Chloride 100 ml @ 200 mls/hr ONCE STAT IV Last administered on 12/03/17at 11:13; Start 12/03/17 at 09:21; Stop 12/03/17 at 09:50; Status DC Bisacodyl (Dulcolax Supp) 10 mg DAILY PRN RECTAL SEVERE CONSITIPATION; Start at 11:45 Chlorhexidine Gluconate (Chlorhexidine 2% Cloth) 3 pack GENERAL ASSIGNMENT REPORTER PRN TOPICAL SEE LABEL COMMENTS; Start 12/05/17 at 04:45; Stop 12/08/17 at 04:44; Status DC Hydromorphone HCl (Dilaudid Pf Inj) 1 mg Q4H PRN IV PUSH BREAKTHROUGH PAIN Last administered on 12/08/17at 05:51; Start 12/05/17 at 13:00 Influenza Virus Vaccine (Flu (Quadrivalent) Vaccine Inj) 0.5 ml ONCE ONCE IM ; Start 12/07/17 at 10:00; Stop 12/07/17 at 10:01; Status DC Ketorolac Tromethamine (Toradol Inj) 30 mg Q6H PRN IV PUSH BREAKTHROUGH PAIN Last administered on 12/05/17at 06:09; Start 12/03/17 at 09:30; Stop 12/05/17 at 08: 18; Status DC Lactated Ringer's 1,000 ml @ 30 mls/hr Q24H PRN IV SEE LABEL COMMENTS; Start at 04:45; Stop 12/08/17 at 04:44; Status DC Lidocaine HCl (Xylocaine 2% Jelly) APPLY LIDOCAINE 2% JE... UNSCH PRN TOPICAL SEE LABEL COMMENTS; Start 12/05/17 at 18:00 Magnesium Hydroxide (Milk Of [place] Liq) 30 ml Q12H PRN PO Mild constipation ; Start 12/03/17 at 11:45 Metronidazole (Flagyl) 500 mg Q8HR PO Last administered on 12/08/17at 05:49; Start 12/05/17 at 09:00 Miscellaneous Information SPECIFIC LAB TO BE DRAWN:VANCOMYCIN TROUGH DATE TO... ONCE ONCE .XX Last administered on 12/07/17at 10:55; Start 12/07/17 at 09:45; Stop 12/07/17 at 09:46; Status DC Naloxone HCl (Narcan Inj) 0.4 mg UNSCH PRN IV PUSH SEE LABEL COMMENTS; Start at 11:45 Nicotine (Habitrol 21 Mg Patch.24 Hr) 1 patch DAILY T-DERMAL Last administered on 12/07/17at 08:15; Start 12/03/17 at 11:45 Ondansetron HCl (Zofran Inj) 4 mg Q6H PRN IVP NAUSEA OR VOMITING Last administered on 12/07/17at 13:22; Start 12/03/17 at 11:45 Pharmacy Profile Note 0 ml @ 0 mls/hr UNSCH OTHER ; Start 12/03/17 at 11:45 Povidone Iodine (Betadine 5% Antisepsis Kit) 1 applic GENERAL ASSIGNMENT REPORTER PRN EACH NARE SEE LABEL COMMENTS; Start 12/05/17 at 04:45; Stop 12/08/17 at 04:44; Status DC Sennosides (Senokot) 17.2 mg Q12H PRN PO Moderate constipation; Start 12/03/17 at 11:45 Sodium Chloride 500 ml @ 30 mls/hr [id number] PRN IV SEE LABEL COMMENTS; Start 12/05/17 at 04:45; Stop 12/08/17 at 04:44; Status DC Sodium Chloride (NS Flush) 2 ml BID IV FLUSH Last administered on 12/07/17at 21: 57; Start 12/03/17 at 21:00 Vancomycin HCl 1000 mg/Sodium Chloride 250 ml @ 250 mls/hr Q12H IV Last administered on 12/05/17at 13:35; Start 12/03/17 at 22:00; Stop 12/05/17 at 15:37; Status DC Vancomycin HCl 1500 mg/Sodium Chloride 515 ml @ 250 mls/hr Q12H IV Last administered on 12/07/17at 21:58; Start 12/05/17 at 22:00 A/P Assessment and Plan A/P Left forearm abscess/cellulitis -Status post recent I&D few days ago in the emergency department. Failed outpatient antibiotics/therapy with clindamycin. Cultures from 12/01 shows strep not A,E,D and Haemophilus. -Dr. Anton Blanchard consulted. s/p I/D of the left forearm abscess and wound vac placement; wound vac has been removed. - We will continue with IV antibiotics per ID. -continue with pain control- will gradually taper off the IV Dilaudid. concern for drug-seeking behavior. -previously d/w Dr. Maher and patient was cleared for discharged by hand surgery. Tobacco dependence -Smoking cessation. Education given. Patient requesting nicotine patch. DVT prophylaxis -Low risk encourage ambulation. Discharge Planning when cleared by ID and pain is controlled. Haleigh Monroe MD Dec 08, 2017 09:41
[2017-12-08] MEDS ORDERED: ACETAMINOPHEN/HYDROcodone 325 MG/10 MG TAB PO PRN ×2 (09:45)
[2017-12-08] MEDS: VANCOMYCIN INJ 1,500 MG in SODIUM CHLORID 0.9% 500 ML INJ 500 ML IV SCH (10:17)
[2017-12-08] MEDS ORDERED: HYDR-3583 PO (12:11)
[2017-12-08 12:23] VITALS: BP 133/65; PULSE 69; RESP 18; TEMP 98.5; O2SAT 99
[2017-12-08] MEDS ORDERED: HYDROmorphone HCL PF 2 MG/ML VIAL IV PUSH PRN (13:00)
[2017-12-08] MEDS ORDERED: LEVA500T33 PO (14:05)
[2017-12-08] MEDS ORDERED: METR-1 PO (14:06)
--- NOTE | 2017-12-08 14:08 | HHI.PR ---
Addendum to Inpatient Note Addendum Reason: Additional Documentation Additional Information Clinically doing well. Dressing changes per Hand surgeon. DC IV antibiotics. Ok to dc home from my standpoint Levaquin and Flagyl for 14 days Will sign off please call back if any change in clinical condition or questions. Hedy Blanco MD Dec 08, 2017 14:08
--- NOTE | 2017-12-08 14:41 | HHI.DS ---
Discharge Summary Admission Date Dec 03, 2017 at 11:09 Discharge Date: Dec 08, 2017 Admitting Diagnosis left forearm abscess/cellulitis failure outpatient therapy (1) Abscess of left forearm ICD Code: L02.414 - Cutaneous abscess of left upper limb Diagnosis: Principal Status: Acute Procedures I/D of the left forearm abscess with wound vac application Brief History - From Admission This is a 37-year-old female past medical history of stage II cervical cancer, lymphoma, recent hospitalization secondary to left arm infection/compartment syndrome status post fasciotomies who presented with right arm abscess/ cellulitis. Patient stated about 4 days ago she had a bee stung her on her left forearm. She stated that there was severe swelling. She use over-the- counter remedies including creams and Benadryl with no improvement. She stated on day 4 she started seeing black spots and pus come out of her arm so she went to the emergency department. In the emergency department and I&D was performed and she was sent home on antibiotics. Patient stated that she was told if there is no improvement or worsening symptoms to return to the emergency department which is why she presents today. Patient denies any fevers or chills. Denies any history of any IV drug use or illicit drug use. All other review of system reviewed and negative. CBC/BMP: 12/04/17 0743 12/08/17 0710 Significant Findings Laboratory Tests Test 12/06/17 06:03 12/07/17 10:50 12/08/17 07:10 Vancomycin Level Trough 14.1 MCG/ML (5.0-10.0) Estimat Glomerular Filtration Rate 83 ML/MIN (>89) Imaging Last Impressions Chest X-Ray 12/03/17 0921 Signed Impressions: Service Date/Time: Sunday, December 03, 2017 09:34 - CONCLUSION: Normal examination. Devon Dover MD Upper Extremity CT 12/03/17 0000 Signed Impressions: Service Date/Time: Sunday, December 03, 2017 11:54 - CONCLUSION: Severe soft tissue inflammation the radial aspect of the forearm without underlying abscess or drainable fluid collection. Devon Dover MD PE at Discharge GENERAL: This is a well-nourished, well-developed patient, in no apparent distress. CARDIOVASCULAR: Regular rate and regular rhythm without murmurs, gallops, or rubs. RESPIRATORY: Clear to auscultation. Breath sounds equal bilaterally. No wheezes , rales, or rhonchi. GASTROINTESTINAL: Abdomen soft, non-tender, nondistended. Normal, active bowel sounds MUSCULOSKELETAL: left forearm covered with clean dressing. NEURO: Alert & Oriented x4 to person, place, time, situation. Moves all ext x4 Hospital Course Left forearm abscess/cellulitis -Status post recent I&D few days ago in the emergency department. Failed outpatient antibiotics/therapy with clindamycin. Cultures from 12/01 shows strep not A,E,D and Haemophilus. -Dr. Anton Blanchard consulted. s/p I/D of the left forearm abscess and wound vac placement; wound vac has been removed. --started on IV antibiotics; will switch to po falgyl and levaquin upon discharge-per ID recommendations. Tobacco dependence -Smoking cessation. Education given. Patient requesting nicotine patch. Pt Condition on Discharge: Stable Discharge Disposition: Discharge Home Discharge Time: <= 30 minutes Haleigh Monroe MD Dec 08, 2017 14:41
[2017-12-08] MEDS ORDERED: LEVOFLOXACIN 500 MG TAB PO SCH (15:00)
[2017-12-10] MEDS ORDERED: PHARMACY ORDERED LAB ONE (09:45)
== END 2017-12-08 18:23 | disposition home or self-care (01) | DRG 572 ==
LOC: NEPD 08:54 → NEDA 11:09 → N05B 17:00
PROVIDERS: ADMIT Internal Medicine; ATTEND Internal Medicine
PROC: 05BY0ZZ Excision of Upper Vein, Open Approach (ICD-10-PCS; 2017-12-03)
PROC: 2W1DX6Z Compression of Left Lower Arm using Pressure Dressing (ICD-10-PCS; 2017-12-03)
PROC: 0JBH0ZZ Excision of Left Lower Arm Subcutaneous Tissue and Fascia, Open Approach (ICD-10-PCS; principal; 2017-12-03 14:25)
DX: L02.413 Cutaneous abscess of right upper limb (principal); L03.113 Cellulitis of right upper limb; F17.210 Nicotine dependence, cigarettes, uncomplicated; Z85.41 Personal history of malignant neoplasm of cervix uteri; Z85.72 Personal history of non-Hodgkin lymphomas; Z86.14 Personal history of Methicillin resistant Staphylococcus aureus infection; Z88.0 Allergy status to penicillin
CPT/HCPCS: 71045; 73201; 80048; 80053; 80202; 82565; 83605; 84703; 85025; 85027; 85610; 85730; 87015; 87040; 87070; 87102; 87116; 87185; 87186; 87205; 87206; 93005; 96365; 96375; J1100; J1170; J1885; J2175; J2250; J2270; J2405; J3010; J3370; J7030; J7040; J7050; Q9967

== ENCOUNTER 2018-02-20 15:00 | Inpatient (IN) | payer SELFPAY ==
[~2018-02-20] VITALS: Ht 162.6 cm; Wt 79.7 kg
[2018-02-20] VITALS (7 sets, daily range): BP systolic 142–152; BP diastolic 64–88; PULSE 118–133; RESP 18–23; TEMP 99.9–102.6; O2SAT 95–99
[~2018-02-20 15:00] MED LIST changes: -BACT800T5 PO; -CEPH-460 PO; -CLIN150C14 PO; +HYDR-3583 PO; -IBUP-232 PO; +LEVA500T33 PO; +METR-1 PO; -NORC5TAB PO
[2018-02-20] MEDS ORDERED: ONDANSETRON ODT 4 MG TAB PO ONE (16:45)
[2018-02-20] MEDS ORDERED: MORPHINE SULFATE 4 MG/ML INJ IV PUSH ONE (16:45)
[2018-02-20] MEDS ORDERED: VANCOMYCIN INJ 1,250 MG in SODIUM CHLOR 0.9% 250 ML INJ 250 ML IV ONE (16:45)
--- NOTE | 2018-02-20 16:57 | PD ---
HPI Chief Complaint: Skin Problem Time Seen by Provider: 16:21 Travel History International Travel<30 days: No Contact w/Intl Traveler<30days: No Traveled to known affect area: No History of Present Illness HPI 37-year-old female presents to the emergency room for evaluation of an abscess to her right hand for the past 4 days. Patient states she bumped her hand against the wall which is what started the abscess. 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 Patient states she initially developed wound infection to the right forearm while doing yard work. She had persistent pain and worsening redness and swelling over the next 6 weeks so she finally came to the emergency room where she was admitted for cellulitis. She had 6 surgeries while here and was being given IV antibiotics but left AGAINST MEDICAL ADVICE because she became angry with her treatment. States she returned a few months later after being stung by 2 bees as on the right arm. She was again admitted for cellulitis. States this episode started 4 days ago. Today was the worst it has been. She has been nauseous but denies any objective fevers. States medication has not been helping. She also reports paresthesias to her hand. Patient adamantly denies IV drug use even after being confronted with all the scars on her veins. She states they are from being in and out of the hospital from having cervical cancer and lymphoma. Only history of seizures for which she is supposed to take Keppra and gabapentin but she did not take them because she cannot afford the medication. PFSH Past Medical History Arthritis: Yes (psoriatic) Cancer: Yes (STAGE II CERVICAL, lymphoma) Cardiovascular Problems: No Diminished Hearing: No Endocrine: Yes (HYPOGLYCEMIA) Gastrointestinal Disorders: No Genitourinary: No Psychiatric: No Reproductive: No Respiratory: No Integumentary: Yes (recent skin absess drained) Immunizations Current: Yes Radiation Therapy: Yes Seizures: Yes ?: Not LMP: 02/12/18 : 9 Para: 1 Miscarriage: 7 Dilation and Curettage (D&C): Yes (x6) Past Surgical History Gynecologic Surgery: Yes (cervical scraping) Other Surgery: Yes (LYMPHOMA RIGHT LEG) Social History Alcohol Use: No Tobacco Use: Yes (1 ppd) Substance Use: No Allergies-Medications (Allergen,Severity, Reaction): Coded Allergies: adhesive (Verified Allergy, Severe, Rash, 12/03/17) penicillin G (Verified Allergy, Severe, Anaphylaxis, 12/03/17) Reported Meds & Prescriptions Reported Meds & Active Scripts Active Flagyl (Metronidazole) 500 Mg Tab 500 Mg PO TID 14 Days Levaquin (Levofloxacin) 500 Mg Tablet 500 Mg PO DAILY 14 Days Hydrocodone-Acetamin 10-325 mg (Hydrocodone/Acetaminophen) 10 Mg-325 Mg Tablet 1 Tab PO Q6HR PRN Review of Systems Except as stated in HPI: all other systems reviewed are Neg Physical Exam Narrative GENERAL: Well-nourished, well-developed female no acute distress. Temperature is 99.9. Ambulatory. SKIN: Focused skin assessment warm/dry. There is an indurated area in the right dorsal hand and left volar forearm which measures about 10 cm and 5 cm respectively. The right hand abscess is fluctuant but there is no pointing or drainage. There is a zone of inflammation around it but no lymphangitis. The left hand abscess is fluctuant with moderate purulent drainage. There is a mild zone of inflammation around it but no lymphangitis. HEAD: Normocephalic. EYES: No scleral icterus. No injection or drainage. NECK: Supple, trachea midline. No JVD or lymphadenopathy. CARDIOVASCULAR: Regular rate and rhythm without murmurs, gallops, or rubs. RESPIRATORY: Breath sounds equal bilaterally. No accessory muscle use. MSK: Significant right hand swelling on the dorsal aspect. Limited range of motion secondary to pain. Less than 2 second capillary refill distally. 2+ radial pulse. Data Data Last Documented VS Vital Signs Date Time Temp Pulse Resp B/P (MAP) Pulse Ox O2 Delivery O2 Flow Rate FiO2 02/20/18 17:03 130 20 99 Room Air 02/20/18 15:57 99.9 Orders Orders Complete Blood Count With Diff (02/20/18 16:33) Blood Culture (02/20/18 16:33) Vancomycin Inj (Vancomycin Inj) (02/20/18 16:45) Comprehensive Metabolic Panel (02/20/18 16:33) Prothrombin Time / Inr (Pt) (02/20/18 16:33) Act Partial Throm Time (Ptt) (02/20/18 16:33) Iv Access Insert/Monitor (02/20/18 16:33) Ecg Monitoring (02/20/18 16:33) Oximetry (02/20/18 16:33) Drug Screen, Random Urine (02/20/18 16:33) Morphine Inj (Morphine Inj) (02/20/18 16:45) Lactic Acid (02/20/18 16:39) Ct Hand W Iv Contrast (02/20/18 ) Ct Forearm W Iv Contrast (02/20/18 ) Ondansetron Odt (Zofran Odt) (02/20/18 16:45) Hydromorphone Pf Inj (Dilaudid Pf Inj) (02/20/18 18:00) Sodium Chlor 0.9% 1000 Ml Inj (Ns 1000 M (02/20/18 18:15) Admit To Inpatient (02/20/18 ) Inpatient Certification (02/20/18 ) Diet Regular Basic (02/20/18 Dinner) Vital Signs (Adult) TREVOR.Q4H (02/20/18 18:48) Complete Blood Count With Diff (02/21/18 06:00) Admit Order (Ed Use Only) (02/20/18 18:49) Labs Laboratory Tests Test 02/20/18 16:30 White Blood Count 23.6 TH/MM3 Red Blood Count 4.60 MIL/MM3 Hemoglobin 13.1 GM/DL Hematocrit 37.3 % Mean Corpuscular Volume 81.1 FL Mean Corpuscular Hemoglobin 28.5 PG Mean Corpuscular Hemoglobin Concent 35.2 % Red Cell Distribution Width 15.8 % Platelet Count 361 TH/MM3 Mean Platelet Volume 7.9 FL Neutrophils (%) (Auto) 80.7 % Lymphocytes (%) (Auto) 12.4 % Monocytes (%) (Auto) 6.4 % Eosinophils (%) (Auto) 0.1 % Basophils (%) (Auto) 0.4 % Neutrophils # (Auto) 19.1 TH/MM3 Lymphocytes # (Auto) 2.9 TH/MM3 Monocytes # (Auto) 1.5 TH/MM3 Eosinophils # (Auto) 0.0 TH/MM3 Basophils # (Auto) 0.1 TH/MM3 CBC Comment DIFF FINAL Differential Comment Prothrombin Time 10.7 SEC Prothromb Time International Ratio 1.1 RATIO Activated Partial Thromboplast Time 27.7 SEC Blood Urea Nitrogen 17 MG/DL Creatinine 0.67 MG/DL Random Glucose 111 MG/DL Total Protein 8.9 GM/DL Albumin 3.5 GM/DL Calcium Level 9.2 MG/DL Alkaline Phosphatase 126 U/L Aspartate Amino Transf (AST/SGOT) 12 U/L Alanine Aminotransferase (ALT/SGPT) 18 U/L Total Bilirubin 0.3 MG/DL Sodium Level 137 MEQ/L Potassium Level 3.7 MEQ/L Chloride Level 101 MEQ/L Carbon Dioxide Level 21.5 MEQ/L Anion Gap 15 MEQ/L Estimat Glomerular Filtration Rate 99 ML/MIN Lactic Acid Level 1.3 mmol/L MDM Medical Decision Making Medical Screen Exam Complete: Yes Emergency Medical Condition: Yes Medical Record Reviewed: Yes Differential Diagnosis Abscess, cellulitis, sepsis, compartment syndrome Narrative Course 37-year-old female with only past medical history of seizures noncompliant with medication for several months presents to the emergency room for evaluation of abscess to her right hand that started 4 days ago after she hit it against a wall. Patient has had recurring abscesses to bilateral upper extremities since September after injuring it while doing yard work. She has history of MRSA. She adamantly denies IV drug use despite being directly confronted about the apparent track [place] on her arms. Patient is screaming in pain, tachycardic, mildly febrile. IV access established basic labs obtained. Patient placed on cardiac telemetry. CBC shows leukocytosis of 23. CMP is essentially unremarkable. Lactic acid is 1.3. Blood cultures obtained. Patient was given vancomycin and 2 L of fluid while in the emergency room. Patient refuses lidocaine stating that she is allergic to it so ethyl chloride was liberally applied to the right hand and a 11 blade scalpel was inserted superficially into the wound. There is significant purulent drainage. Patient's was not adequately controlled with morphine so she was then given 1 mg Dilaudid which seemed to significantly improve her symptoms. I spoke to the hand surgeon on- call, Dr. Stephens, he was made aware of findings. States to make her nothing by mouth after midnight tonight and he will see her in consult tomorrow. Procedures Procedure Narrative INCISION AND DRAINAGE OF ABSCESS: The area was prepped and was sterilely draped. Ethyl chloride was liberally applied to the right dorsal hand. A number 11 scalpel was used to make a 1 cm incision across the area of the abscess. The abscess was drained. Patient will not allow complex loculations to be broken down, packing, or irrigation. Cultures were obtained. Dressing applied. Diagnosis Primary Impression: Abscess of right hand Admitting Information Admitting Physician Requests: Admit Condition: Stable Sujatha Bojorquez February 20, 2018 16:57
[2018-02-20 17:06] LABS: AUTOMATED NEUTROPHIL # 19.1 TH/MM3 (1.8-7.7); BASOPHIL # 0.1 TH/MM3 (0-0.2); BASOPHIL % 0.4 % (0.0-2.0); EOSINOPHIL % 0.1 % (0.0-4.0); HEMATOCRIT 37.3 % (35.0-46.0); HEMOGLOBIN 13.1 GM/DL (11.6-15.3); LYMPH % 12.4 % (9.0-44.0); LYMPHOCYTE # 2.9 TH/MM3 (1.0-4.8); MEAN CELL VOLUME 81.1 FL (80.0-100.0); MEAN CORPUSCULAR HEMOGLOBIN 28.5 PG (27.0-34.0); MEAN CORPUSCULAR HGB CONC 35.2 % (32.0-36.0); MEAN PLATELET VOLUME 7.9 FL (7.0-11.0); MONO % 6.4 % (0.0-8.0); MONOCYTE # 1.5 TH/MM3 (0-0.9); NEUT % 80.7 % (16.0-70.0); PLATELET COUNT 361 TH/MM3 (150-450); RED CELL DISTRIBUTION WIDTH 15.8 % (11.6-17.2); WHITE BLOOD COUNT 23.6 TH/MM3 (4.0-11.0)
[2018-02-20 17:13] LABS: INTERNATIONAL NORMALIZED RATIO 1.1 RATIO; PROTHROMBIN TIME - PATIENT 10.7 SEC (9.8-11.6)
[2018-02-20 17:25] LABS: ALBUMIN 3.5 GM/DL (3.4-5.0); ALT (GPT) 18 U/L (10-53); AST (GOT) 12 U/L (15-37); BICARBONATE 21.5 MEQ/L (21.0-32.0); BLOOD UREA NITROGEN 17 MG/DL (7-18); CALCIUM 9.2 MG/DL (8.5-10.1); CHLORIDE 101 MEQ/L (98-107); CREATININE 0.67 MG/DL (0.50-1.00); GLOMERULAR FILTRATION RATE 99 ML/MIN (>89); GLUCOSE,RANDOM 111 MG/DL (74-106); SODIUM (NA) 137 MEQ/L (136-145)
[2018-02-20 17:27] LABS: ALKALINE PHOSPHATASE 126 U/L (45-117); TOTAL BILIRUBIN ADULT 0.3 MG/DL (0.2-1.0); TOTAL PROTEIN 8.9 GM/DL (6.4-8.2)
[2018-02-20] MEDS ORDERED: HYDROmorphone HCL PF 1 MG/ML VIAL IV PUSH ONE (17:45)
[2018-02-20] MEDS ORDERED: HYDROmorphone HCL PF 2 MG/ML VIAL IV PUSH ONE (18:00)
[2018-02-20] MEDS ORDERED: SODIUM CHLOR 0.9% 1000 ML INJ 1,000 ML IV ONE (18:15)
[2018-02-20] MEDS ORDERED: IOHEXOL 350 MG/ML 10 ML VIAL (for RAD DIAG) IVCONTRAST ONE (18:50)
--- NOTE | 2018-02-20 19:26 | RADRPT ---
EXAM DATE/TIME: 02/20/2018 18:24 [facility] COMPARISON: No previous studies available for comparison. INDICATIONS : Abscess right hand area IV CONTRAST: 72 cc Omnipaque 350 (iohexol) IV RADIATION DOSE: 11.61 CTDIvol (mGy) MEDICAL HISTORY : Seizures. Lymphoma. cervical cancer SURGICAL HISTORY : cervical scraping ENCOUNTER: Initial ACUITY: 4 - 6 days PAIN SCALE: 10/10 LOCATION: Right Forearm TECHNIQUE: Volumetric scanning of the forearm was performed. Using automated exposure control and adjustment of the mA and/or kV according to patient size, radiation dose was kept as low as reasonably achievable to obtain optimal diagnostic quality images. DICOM format image data is available electronically fo r review and comparison. FINDINGS: Dorsal soft tissue swelling is seen involving the hand. Overlying the dorsal soft tissues of the seco nd digit is an area of decreased density that has vague margination. Hounsfield units are 34. No flui d density is observed. This projects at the level of the head of the metacarpal. No cortical destruct ion within the adjacent bony structures to suggest osteomyelitis. No fractures or dislocations. An en larged lymph node involving the antecubital fossa measuring 1.4 cm. CONCLUSION: Dorsal soft tissue swelling of the hand with an area of decreased density projecting at the level of the second metacarpal head that is felt to relate to phlegmon that has yet to liquefy. No liquefied a bscess currently seen. Madhu Jackson Jr., MD on February 20, 2018 at 19:20 Board Certified Radiologist. This report was verified electronically.
--- NOTE | 2018-02-20 19:27 | RADRPT ---
EXAM DATE/TIME: 02/20/2018 18:24 [facility] COMPARISON: No previous studies available for comparison. INDICATIONS : Abscess right hand IV CONTRAST: 72 cc Omnipaque 350 (iohexol) IV ; Cumulative dose for multiple exams. RADIATION DOSE: 11.61 CTDIvol (mGy) ; Combined studies - Thorax/Abdomen/Pelvis MEDICAL HISTORY : Seizures. Lymphoma. Cervical cancer SURGICAL HISTORY : Cervical scraping ENCOUNTER: Initial ACUITY: 4 - 6 days PAIN SCALE: 10/10 LOCATION: Right Hand TECHNIQUE: Volumetric scanning of the hand was performed. Using automated exposure control and adjustment of th e mA and/or kV according to patient size, radiation dose was kept as low as reasonably achievable to obtain optimal diagnostic quality images. DICOM format image data is available electronically for re view and comparison. FINDINGS: Dorsal soft tissue swelling and area of phlegmon as detailed in the CT of the forearm report. No absc ess or osteomyelitis observed. No fracture or dislocation. CONCLUSION: Soft tissue swelling and phlegmon involving dorsal soft tissues of the hand as detailed in the CT of the forearm report. Madhu Jackson Jr., MD on February 20, 2018 at 19:24 Board Certified Radiologist. This report was verified electronically.
[2018-02-20] MEDS ORDERED: Vancomycin Consult Pharmacy 1 EA OTHER SCH (20:30)
--- NOTE | 2018-02-20 20:30 | HHI.HP ---
HPI Service [facility] Primary Care Physician No Primary Care Physician Admission Diagnosis Right hand abscess, sepsis Diagnoses: Travel History International Travel<30 Days: No Contact w/Intl Traveler <30 Da: No Traveled to Known Affected Are: No History of Present Illness 37 y/o female with a history of MRSA, cervical cancer, and seizures presented to the ED with complaints of a right hand wound for the last 4 days. She states she hit her had on a wall, and it started to swell and become very painful. She states now the pain is a 10/10, constant, throbbing to her right hand with radiation up her arm, no associated symptoms. She cries when you try to touch it. She allowed the ED physician to mary it open but did not allow them to squeeze it. She denies any IVDA. She states her apartment is clean but the complex she lives in is not. She has a history of seizures but does not take medications because she can not afford it. She was recently admitted in december for left forearm cellulites and states she completed those antibiotics as prescribed. Today she still has a wound to the left forearm that is draining bloody purulent drainage. Past Family Social History Past Medical History Stage II cervical cancer Lymphoma Endometriosis Past Surgical History Multiple abdominal laparoscopic surgeries mostly due to lysis of adhesions D&C. Reported Medications Reported Meds & Active Scripts Active Flagyl (Metronidazole) 500 Mg Tab 500 Mg PO TID 14 Days Levaquin (Levofloxacin) 500 Mg Tablet 500 Mg PO DAILY 14 Days Hydrocodone-Acetamin 10-325 mg (Hydrocodone/Acetaminophen) 10 Mg-325 Mg Tablet 1 Tab PO Q6HR PRN Allergies: Coded Allergies: adhesive (Verified Allergy, Severe, Rash, 12/03/17) penicillin G (Verified Allergy, Severe, Anaphylaxis, 12/03/17) lidocaine (Verified Allergy, Unknown, 02/20/18) Family History Mom: Ovarian cancer Social History Tobacco use: 1 to PPD Alcohol use: Denies Illicit drug use: Denies Physical Exam Vital Signs Vital Signs Date Time Temp Pulse Resp B/P (MAP) Pulse Ox O2 Delivery O2 Flow Rate FiO2 02/20/18 18:59 102.6 121 18 142/64 (90) 99 Room Air 02/20/18 17:03 130 20 99 Room Air 02/20/18 17:02 130 22 99 Room Air 02/20/18 15:57 99.9 133 23 97 Physical Exam GENERAL: This is a well-nourished, well-developed patient, in pain SKIN: Severe Right hand cellulitis with purulent drainage EYES: Pupils equal round and reactive. ENT: Nose without bleeding, purulent drainage or septal hematoma. CARDIOVASCULAR: Regular rate and rhythm without murmurs, gallops, or rubs. RESPIRATORY: Clear to auscultation. Breath sounds equal bilaterally. No wheezes , rales, or rhonchi. GASTROINTESTINAL: Abdomen soft, non-tender, nondistended. No hepato-splenomegaly , or palpable masses. No guarding. MUSCULOSKELETAL: Extremities without clubbing, cyanosis, or edema. Right thumb joint tenderness. No calf tenderness. NEUROLOGICAL: Awake and alert. Motor and sensory grossly within normal limits. Normal speech. Laboratory Laboratory Tests Test 02/20/18 16:30 White Blood Count 23.6 Red Blood Count 4.60 Hemoglobin 13.1 Hematocrit 37.3 Mean Corpuscular Volume 81.1 Mean Corpuscular Hemoglobin 28.5 Mean Corpuscular Hemoglobin Concent 35.2 Red Cell Distribution Width 15.8 Platelet Count 361 Mean Platelet Volume 7.9 Neutrophils (%) (Auto) 80.7 Lymphocytes (%) (Auto) 12.4 Monocytes (%) (Auto) 6.4 Eosinophils (%) (Auto) 0.1 Basophils (%) (Auto) 0.4 Neutrophils # (Auto) 19.1 Lymphocytes # (Auto) 2.9 Monocytes # (Auto) 1.5 Eosinophils # (Auto) 0.0 Basophils # (Auto) 0.1 CBC Comment DIFF FINAL Differential Comment Prothrombin Time 10.7 Prothromb Time International Ratio 1.1 Activated Partial Thromboplast Time 27.7 Blood Urea Nitrogen 17 Creatinine 0.67 Random Glucose 111 Total Protein 8.9 Albumin 3.5 Calcium Level 9.2 Alkaline Phosphatase 126 Aspartate Amino Transf (AST/SGOT) 12 Alanine Aminotransferase (ALT/SGPT) 18 Total Bilirubin 0.3 Sodium Level 137 Potassium Level 3.7 Chloride Level 101 Carbon Dioxide Level 21.5 Anion Gap 15 Estimat Glomerular Filtration Rate 99 Lactic Acid Level 1.3 Date/Time Source Procedure Growth Status 02/20/18 16:40 Blood Peripheral Aerobic Blood Culture Pending Received 02/20/18 16:40 Blood Peripheral Anaerobic Blood Culture Pending Received Result Diagram: 02/20/18 1630 02/20/18 1630 Imaging Last Impressions Upper Extremity CT 02/20/18 0000 Signed Impressions: Service Date/Time: Tuesday, February 20, 2018 18:24 - CONCLUSION: Dorsal soft tissue swelling of the hand with an area of decreased density projecting at the level of the second metacarpal head that is felt to relate to phlegmon that has yet to liquefy. No liquefied abscess currently seen. MD Nelli Ovalle Jr. VTE Risk Assessment Caprini VTE Risk Assessment: No/Low Risk (score <= 1) Caprini Risk Assessment Model Point Value = 1 Point Value = 2 Point Value = 3 Point Value = 5 Age 41-60 Minor surgery BMI > 25 kg/m2 Swollen legs Varicose veins or History of unexplained or recurrent spontaneous Oral contraceptives or hormone replacement Sepsis (< 1 month) Serious lung disease, including pneumonia (< 1 month) Abnormal pulmonary function Acute myocardial infarction Congestive heart failure (< 1 month) History of inflammatory bowel disease Medical patient at bed rest Age 61-74 Arthroscopic surgery Major open surgery (> 45 min) Laparoscopic surgery (> 45 min) Malignancy Confined to bed (> 72 hours) Immobilizing plaster cast Central venous access Age >= 75 History of VTE Family history of VTE Factor V Leiden Prothrombin [id number] Lupus anticoagulant Anticardiolipin antibodies Elevated serum homocysteine Heparin-induced thrombocytopenia Other congenital or acquired thrombophilia Stroke (< 1 month) Elective arthroplasty Hip, pelvis, or leg fracture Acute spinal cord injury (< 1 month) Prophylaxis Regimen Total Risk Factor Score Risk Level Prophylaxis Regimen 0-1 Low Early ambulation 2 Moderate Order ONE of the following: *Sequential Compression Device (SCD) *Heparin 5000 units SQ BID 3-4 Higher Order ONE of the following medications: *Heparin 5000 units SQ TID *Enoxaparin/Lovenox 40 mg SQ daily (WT < 150 kg, CrCl > 30 mL/min) *Enoxaparin/Lovenox 30 mg SQ daily (WT < 150 kg, CrCl > 10-29 mL/min) *Enoxaparin/Lovenox 30 mg SQ BID (WT < 150 kg, CrCl > 30 mL/min) AND/OR *Sequential Compression Device (SCD) 5 or more Highest Order ONE of the following medications: *Heparin 5000 units SQ TID (Preferred with Epidurals) *Enoxaparin/Lovenox 40 mg SQ daily (WT < 150 kg, CrCl > 30 mL/min) *Enoxaparin/Lovenox 30 mg SQ daily (WT < 150 kg, CrCl > 10-29 mL/min) *Enoxaparin/Lovenox 30 mg SQ BID (WT < 150 kg, CrCl > 30 mL/min) AND *Sequential Compression Device (SCD) Assessment and Plan Assessment and Plan 37 y/o female with a history of MRSA, cervical cancer, and seizures presented to the ED with complaints of a right hand wound for the last 4 days. Sepsis, Cellulitis, right hand and left forearm, WBC 23.6, HR 121, temp 102.6, lactic 1.3, unknown organism, hx of MRSA Right hand upper extremity CT shows reviewed Dorsal soft tissue swelling of the hand with an area of decreased density projecting at the level of the second metacarpal head that is felt to relate to phlegmon that has yet to liquefy. No liquefied abscess currently seen. -IV antibiotics vancomycin and aztreonam IV, with pharmacy consult for vancomycin -Consult hand surgery and infectious disease -Pain management [place] PO and Dilaudid IV -NPO after midnight -IVF for hydration -CBC in AM -Contact isolation -Blood cultures pending, wound culture ordered Seizures, history not on medication for a few years -Seizure precautions DVT prophylaxis: SCDs Discussed Condition With Patient and RN Physician Certification 2 Midnight Certification Type: Admission for Inpatient Services Order for Inpatient Services The services are ordered in accordance with Medicare regulations or non- Medicare payer requirements, as applicable. In the case of services not specified as inpatient-only, they are appropriately provided as inpatient services in accordance with the 2-midnight benchmark. Estimated LOS (days): 2 days is the estimated time the patient will need to remain in the hospital, assuming treatment plan goals are met and no additional complications. Post-Hospital Plan: Elsa Conway February 20, 2018 20:30
[2018-02-20] MEDS ORDERED: ACETAMINOPHEN/HYDROcodone 325 MG/5 MG TAB PO PRN (20:45)
[2018-02-20] MEDS ORDERED: HYDROmorphone HCL PF 1 MG/ML VIAL IV PUSH PRN (20:45)
[2018-02-20] MEDS: AZTREONAM INJ 1,000 MG in SODIUM CHLORIDE 0.9% INJ 100 ML IV SCH (21:47)
[2018-02-20] MEDS: ACETAMINOPHEN/HYDROcodone 325 MG/10 MG TAB PO PRN (21:47)
[2018-02-20] MEDS ORDERED: KETOROLAC TROMETHAMINE 30 MG/ML (IVP) VIAL IV PUSH ONE (22:15)
[2018-02-20] MEDS ORDERED: ACETAMINOPHEN 325 MG TAB PO PRN (22:15)
[2018-02-20] MEDS: HYDROmorphone HCL PF 0.5 MG/0.5 ML SYRINGE IV PRN (22:20)
[2018-02-21] VITALS: BP 103/62; PULSE 88; PULSE 93; RESP 16; TEMP 99.4; O2SAT 96
[2018-02-21] MEDS: ACETAMINOPHEN/HYDROcodone 325 MG/10 MG TAB PO PRN ×5 (01:36→23:33)
[2018-02-21] MEDS ORDERED: NICOTINE 14 MG/24 HR PATCH T-DERMAL ONE (01:45)
[2018-02-21] MEDS ORDERED: diphenhydrAMINE HCL 25 MG CAP PO ONE (01:45)
[2018-02-21 04:00] VITALS: BP 129/74; PULSE 75; PULSE 82; RESP 18; TEMP 97.9; O2SAT 98
[2018-02-21] MEDS: HYDROmorphone HCL PF 0.5 MG/0.5 ML SYRINGE IV PRN ×5 (04:06→22:33)
[2018-02-21] MEDS: AZTREONAM INJ 1,000 MG in SODIUM CHLORIDE 0.9% INJ 100 ML IV SCH ×2 (04:32→15:01)
[2018-02-21] MEDS: VANCOMYCIN INJ 1,250 MG in SODIUM CHLOR 0.9% 250 ML INJ 250 ML IV SCH ×2 (05:14→17:01)
[2018-02-21 07:41] LABS: AUTOMATED NEUTROPHIL # 11.8 TH/MM3 (1.8-7.7); BASOPHIL # 0.1 TH/MM3 (0-0.2); BASOPHIL % 0.3 % (0.0-2.0); EOSINOPHIL # 0.1 TH/MM3 (0-0.4); EOSINOPHIL % 0.6 % (0.0-4.0); HEMATOCRIT 34.5 % (35.0-46.0); HEMOGLOBIN 11.1 GM/DL (11.6-15.3); LYMPH % 16.9 % (9.0-44.0); LYMPHOCYTE # 2.7 TH/MM3 (1.0-4.8); MEAN CELL VOLUME 81.4 FL (80.0-100.0); MEAN CORPUSCULAR HEMOGLOBIN 26.2 PG (27.0-34.0); MEAN CORPUSCULAR HGB CONC 32.2 % (32.0-36.0); MEAN PLATELET VOLUME 7.9 FL (7.0-11.0); MONO % 9.5 % (0.0-8.0); MONOCYTE # 1.5 TH/MM3 (0-0.9); NEUT % 72.7 % (16.0-70.0); PLATELET COUNT 289 TH/MM3 (150-450); RED BLOOD COUNT 4.24 MIL/MM3 (4.00-5.30); WHITE BLOOD COUNT 16.2 TH/MM3 (4.0-11.0)
[2018-02-21 08:00] VITALS: BP 113/58; PULSE 78; PULSE 79; RESP 16; TEMP 98.4; O2SAT 96
--- NOTE | 2018-02-21 11:24 | HHI.PR ---
Subjective Remarks Says she has pain in her arms at the abscesses site. With fevers overnight With nausea no vomiting No diarrhea Objective Vitals Vital Signs Date Time Temp Pulse Resp B/P (MAP) Pulse Ox O2 Delivery O2 Flow Rate FiO2 02/21/18 08:00 98.4 79 16 113/58 (76) 96 02/21/18 08:00 Room Air 02/21/18 08:00 78 02/21/18 04:00 97.9 82 18 129/74 (92) 98 02/21/18 04:00 75 02/21/18 04:00 Room Air 02/21/18 00:00 93 02/21/18 00:00 99.4 88 16 103/62 (76) 96 02/21/18 00:00 Room Air 02/20/18 22:50 101.0 02/20/18 22:00 118 02/20/18 21:30 102.5 120 18 152/88 (109) 95 02/20/18 20:30 Room Air 02/20/18 20:22 02/20/18 18:59 102.6 121 18 142/64 (90) 99 Room Air 02/20/18 17:03 130 20 99 Room Air 02/20/18 17:02 130 22 99 Room Air 02/20/18 15:57 99.9 133 23 97 I/O 02/20/18 02/20/18 02/20/18 02/21/18 02/21/18 02/21/18 07:00 15:00 23:00 07:00 15:00 23:00 Intake Total 362.5 ml 340 ml Output Total 1050 ml Balance 362.5 ml -710 ml Intake Oral 240 ml IV Total 362.5 ml 100 ml Output Urine Total 1050 ml # Bowel Movements 0 Result Diagram: 02/21/18 0645 02/20/18 1630 Imaging Last Impressions Upper Extremity CT 02/20/18 0000 Signed Impressions: Service Date/Time: Tuesday, February 20, 2018 18:24 - CONCLUSION: Dorsal soft tissue swelling of the hand with an area of decreased density projecting at the level of the second metacarpal head that is felt to relate to phlegmon that has yet to liquefy. No liquefied abscess currently seen. Madhu Jackson Jr., MD Objective Remarks GENERAL: This is a well-nourished, well-developed patient, in pain SKIN: Severe Right hand cellulitis with purulent drainage CARDIOVASCULAR: Regular rate and rhythm without murmurs, gallops, or rubs. RESPIRATORY: Clear to auscultation. Breath sounds equal bilaterally. No wheezes , rales, or rhonchi. GASTROINTESTINAL: Abdomen soft, non-tender, nondistended. No hepato-splenomegaly , or palpable masses. No guarding. MUSCULOSKELETAL: Extremities without clubbing, cyanosis, or edema. Right thumb joint tenderness. No calf tenderness. NEUROLOGICAL: Awake and alert. Motor and sensory grossly within normal limits. Normal speech. A/P Assessment and Plan 37 y/o female with a history of MRSA, cervical cancer, and seizures presented to the ED with complaints of a right hand wound for the last 4 days. Sepsis, Cellulitis, right hand and left forearm (on admission with WBC 23.6, HR 121, temp 102.6, lactic 1.3, unknown organism, hx of MRSA) Right hand upper extremity CT reviewed: Dorsal soft tissue swelling of the hand with an area of decreased density projecting at the level of the second metacarpal head that is felt to relate to phlegmon that has yet to liquefy. No liquefied abscess currently seen. IV antibiotics vancomycin and aztreonam IV, with pharmacy consult for vancomycin Consult hand surgery and infectious disease Pain management [place] PO and Dilaudid IV NPO , plan for OR today by Dr Stephens IVF for hydration CBC in AM Contact isolation Blood cultures pending, wound culture ordered Seizures, history not on medication for a few years Seizure precautions Monitor DVT prophylaxis: SCDs Discussed Condition With Patient, nurse, Dr Stephens hand surgeon/ plastic surgeon DC plan: On IV abx, plan for OR for abscess by Dr Stephens. DC when improved and cleared by ID and hand surgeon Agatha Macedo MD February 21, 2018 11:24
[2018-02-21 12:00] VITALS: BP 122/60; PULSE 75; PULSE 90; RESP 16; TEMP 98; O2SAT 96
[2018-02-21] MEDS ORDERED: DEXAMETHASONE SOD PHOS 4 MG/ML VIAL IV ONE (12:00)
[2018-02-21] MEDS ORDERED: ONDANSETRON HCL 4 MG/2 ML VIAL IV ONE (12:00)
[2018-02-21] MEDS ORDERED: PROPOFOL 200 MG/20 ML AMP IV ONE (12:00)
[2018-02-21] MEDS ORDERED: LACTATED RINGER'S 1000 ML INJ 1,000 ML IV ONE (12:00)
[2018-02-21] MEDS ORDERED: LIDOCAINE HCL 1% PF 5 ML SYRINGE OTHER ONE (12:00)
--- NOTE | 2018-02-21 12:33 | MB ---
cc: Corrine Stephens MD DATE: 02/14/2018 REQUESTING PHYSICIAN: Dr. Krueger. REASON FOR CONSULTATION: Bilateral hand abscesses. HISTORY OF PRESENT ILLNESS: The patient is a 37-year-old female who was admitted through the emergency room last evening. The patient's admitting diagnosis was right hand abscess with sepsis. The patient does have history of MRSA, cervical cancer and seizures. The patient came to the emergency room complaining of an abscess over the last 4 days. In the emergency room, it was lanced using a freezing material for the skin. The patient notes that SHE IS ALLERGIC TO LIDOCAINE WHICH CAUSES ULCERS. The patient was recently admitted in December for a left forearm cellulitis. In the emergency room, the abscess was drained and cultured. It grew out rare gram-positive cocci in pairs with moderate white cells. PAST MEDICAL HISTORY: In addition to cervical cancer, the patient has a history of lymphoma and endometriosis. PAST SURGICAL HISTORY: Includes multiple abdominal laparoscopic surgeries due to lysis of adhesions and D and C. MEDICATIONS: The medications are listed on the chart. ALLERGIES: SHE CLAIMS ALLERGY TO ADHESIVES, PENICILLIN AND LIDOCAINE. FAMILY HISTORY: Significant for ovarian cancer. SOCIAL HISTORY: Significant for tobacco use. She denies alcohol use or illicit drug use. PHYSICAL EXAMINATION: GENERAL: The patient is lying in bed. VITAL SIGNS: Temperature 98.4, pulse 79, respirations 16, blood pressure is 113/58, her pulse oximetry is 96% on room air. HEENT: Her extraocular muscles are intact. Pupils are equal, round and reactive to light. Mouth is clear. NECK: Supple, without mass. LUNGS: Clear. HEART: Regular rate and rhythm. EXTREMITIES: Examination of the upper extremities reveals an abscess in the dorsal aspect of the right hand, which is partially drained. In addition, there is swelling on the left forearm dorsally. LABORATORY DATA: The patient's white count on admission was 23.6 and this morning was 16.2 with a left shift. Her urine was positive for opiates, although the patient does claim to be on an oral medication consistent with opiates. The patient's INR is 1.1. IMPRESSION: The patient appears to have bilateral upper extremity abscesses. PLAN: The patient will be taken to the operating room today for incision and drainage. The patient understands and accepts the risk and complications of the surgery. MD ROSARIO Walters/YONIS , 12:08 PM , 12:33 PM
[2018-02-21] MEDS: METOCLOPRAMIDE HCL 10 MG/2 ML VIAL IV PUSH PRN (14:58)
[2018-02-21 16:00] VITALS: BP 107/55; PULSE 76; PULSE 82; RESP 16; TEMP 98.4; O2SAT 96
[2018-02-21] MEDS ORDERED: BUPIVACAINE HCL PF 0.5% 30 ML VIAL ONE (17:36)
[2018-02-21] MEDS ORDERED: CHLORHEXIDINE GLUCONATE 2 % 1 PACK (2 CLOTHS) TOPICAL PRN (18:00)
[2018-02-21] MEDS ORDERED: METOPROLOL TARTRATE 25 MG TAB PO PRN (18:00)
[2018-02-21] MEDS ORDERED: SODIUM CHLORID 0.9% 500 ML IV PRN (18:00)
[2018-02-21] MEDS ORDERED: POVIDONE IODINE 5% (ANTISEPSIS KIT) 4 APPLICATIONS EACH NARE PRN (18:00)
[2018-02-21] MEDS ORDERED: LACTATED RINGER'S 1000 ML IV PRN (18:00)
--- NOTE | 2018-02-21 18:35 | PD.ID.CON ---
History of Present Illness Service ID Consult Requested By Dr Macedo Reason for Consult R hand infection Primary Care Physician No Primary Care Physician Diagnoses: History of Present Illness 37 yo F with h/o lymphomna few years ago and cervical cancer and endometriosis as well as multiple MRSA skin infections presetned with few days of worsning swelling, redness pain and of R hand Started on Tuesday after minor trauma Her hand is getting worse and its so swollen she is unable to make a fist Pt was seen by hand surgeon Dr [facility]jas [facility] presentd with fever of 102.6 and leukocytosis of 23 K Blood clx neg @ 1 day, G staina on and drainage with GPC H/o L foream MRSA asbscess in December, cont to have pain and some drainage Review of Systems Except as stated in HPI: all other systems reviewed are Neg Past Family Social History Allergies: Coded Allergies: adhesive (Verified Allergy, Severe, Rash, 12/03/17) penicillin G (Verified Allergy, Severe, Anaphylaxis, 12/03/17) lidocaine (Verified Allergy, Unknown, 02/20/18) Past Medical History Stage II cervical cancer Lymphoma Endometriosis Past Surgical History Multiple abdominal laparoscopic surgeries mostly due to lysis of adhesions D&C. Active Ordered Medications Medications where reviewed in EMR Antibiotics Include: vanco Family History Mom: Ovarian cancer Social History Tobacco use: to PPD Alcohol use: Denies Illicit drug use: Denies Physical Exam Vital Signs Vital Signs Date Time Temp Pulse Resp B/P (MAP) Pulse Ox O2 Delivery O2 Flow Rate FiO2 02/21/18 16:00 82 02/21/18 16:00 98.4 76 16 107/55 (72) 96 02/21/18 12:00 75 02/21/18 12:00 98.0 90 16 122/60 (80) 96 02/21/18 08:00 98.4 79 16 113/58 (76) 96 02/21/18 08:00 Room Air 02/21/18 08:00 78 02/21/18 04:00 97.9 82 18 129/74 (92) 98 02/21/18 04:00 75 02/21/18 04:00 Room Air 02/21/18 00:00 93 02/21/18 00:00 99.4 88 16 103/62 (76) 96 02/21/18 00:00 Room Air 02/20/18 22:50 101.0 02/20/18 22:00 118 02/20/18 21:30 102.5 120 18 152/88 (109) 95 02/20/18 20:30 Room Air 02/20/18 20:22 02/20/18 18:59 102.6 121 18 142/64 (90) 99 Room Air Physical Exam CONSTITUTIONAL/GENERAL: This is an adequately nourished patient, in no apparent distress. TUBES/LINES/DRAINS: SKIN: No jaundice, rashes, or lesions. Skin temperature appropriate. Not diaphoretic. HEAD: Atraumatic. Normocephalic. EYES: Pupils equal and round and reactive. Extraocular motions intact. No scleral icterus. No injection or drainage. Fundi not examined. ENT: Hearing grossly normal. Nose without bleeding or purulent drainage. Throat without visible erythema, exudates, masses, or lesions. NECK: Trachea midline. Supple, nontender. No palpable thyroid enlargement or nodularity. CARDIOVASCULAR: Regular rate and rhythm without murmurs, gallops, or rubs. No JVD. Peripheral pulses symmetric. RESPIRATORY/CHEST: Symmetric, unlabored respirations. Clear to auscultation. Breath sounds equal bilaterally. No wheezes, rales, or rhonchi. GASTROINTESTINAL: Abdomen soft, non-tender, nondistended. No hepato-splenomegaly , or palpable masses. No guarding. Bowel sounds present. GENITOURINARY: Without palpable bladder distension. Fontenot catheter in place. MUSCULOSKELETAL: Extremities without clubbing, cyanosis, No joint tenderness or effusion noted. No calf tenderness. No mottling or clubbing. STATUS LOCALIS: very edematous erythematous R hand unable to make fist 2/2 edema + Draining wound over thumb with odorless salmon color pus + necrotic devitalised skin noted edema extending to distal dorarm L hand small superficial wound and mildly tender small sized induration LYMPHATICS: No palpable cervical or supraclavicular adenopathy. + R axilla lymphadenopathy NEUROLOGICAL: Awake and alert. Motor and sensory grossly within normal limits. Follows commands. Cognitively sharp. Moves all extremities. PSYCHIATRIC: No obvious anxiety/depression. no apparent hallucinations or other psychotic thought process. Laboratory Laboratory Tests Test 02/21/18 05:40 02/21/18 06:45 Urine Opiates Screen POS Urine Barbiturates Screen NEG Urine Amphetamines Screen NEG Urine Benzodiazepines Screen NEG Urine Cocaine Screen NEG Urine Cannabinoids Screen NEG White Blood Count 16.2 Red Blood Count 4.24 Hemoglobin 11.1 Hematocrit 34.5 Mean Corpuscular Volume 81.4 Mean Corpuscular Hemoglobin 26.2 Mean Corpuscular Hemoglobin Concent 32.2 Red Cell Distribution Width 16.0 Platelet Count 289 Mean Platelet Volume 7.9 Neutrophils (%) (Auto) 72.7 Lymphocytes (%) (Auto) 16.9 Monocytes (%) (Auto) 9.5 Eosinophils (%) (Auto) 0.6 Basophils (%) (Auto) 0.3 Neutrophils # (Auto) 11.8 Lymphocytes # (Auto) 2.7 Monocytes # (Auto) 1.5 Eosinophils # (Auto) 0.1 Basophils # (Auto) 0.1 CBC Comment DIFF FINAL Differential Comment Date/Time Source Procedure Growth Status 02/20/18 16:40 Blood Peripheral Aerobic Blood Culture - Preliminary NO GROWTH IN 1 DAY Resulted 02/20/18 16:40 Blood Peripheral Anaerobic Blood Culture - Preliminary NO GROWTH IN 1 DAY Resulted 02/21/18 06:45 Wound Hand Gram Stain - Final Resulted 02/21/18 06:45 Wound Hand Wound Culture Pending Resulted Result Diagram: 02/21/18 0645 02/20/18 1630 Imaging Last Impressions Upper Extremity CT 02/20/18 0000 Signed Impressions: Service Date/Time: Tuesday, February 20, 2018 18:24 - CONCLUSION: Dorsal soft tissue swelling of the hand with an area of decreased density projecting at the level of the second metacarpal head that is felt to relate to phlegmon that has yet to liquefy. No liquefied abscess currently seen. Madhu Jackson Jr., MD Assessment and Plan Assessment and Plan Severe infection of R hand, combination of abscess, phelgmone, liekly involving deeper structures likel joint, endens L foream abscess sp drainagem, chute tender Agree with prompt surgical expolation and drainage cont vanco will add levaquine untill coinfection is ruled out Discussed Condition With Ivone Sams MD February 21, 2018 18:35
[2018-02-21] MEDS ORDERED: MIDAZOLAM HCL 2 MG/2 ML VIAL ONE ×2 (19:56→20:49)
[2018-02-21] MEDS ORDERED: fentaNYL CITRATE 250 MCG/5 ML AMP ONE (19:57)
[2018-02-21 20:00] VITALS: BP 111/70; PULSE 107; RESP 20; TEMP 98.8; O2SAT 93
[2018-02-21] MEDS ORDERED: BACITRACIN TOP OINT 15 GM TUBE ONE (20:03)
--- NOTE | 2018-02-21 20:42 | HHI.PR ---
Immediate Post Op Note Procedure Date: February 21, 2018 Pre Op Diagnosis: (1) Abscess of left forearm (2) Abscess of right hand Post Op Diagnosis: (1) Abscess of right hand (2) Abscess of left forearm Surgeon: Corrine Stephens Elevated Motorman(s): None Procedure: Incision and drainage of the right hand and left forearm. Estimated blood loss: 100 ml Anesthesia: General Drains: Other (1/2 inch iodoform) Patient to: PACU Patient Condition: Good Date/Time of Procedure: SEE SURGICAL CARE RECORD Corrine Stephens MD February 21, 2018 20:42
[2018-02-21] MEDS ORDERED: LORazepam 2 MG/ML VIAL ONE (20:43)
[2018-02-21] MEDS ORDERED: DO NOT ADM ANY ANTICOAGULANT DRUGS PRN (20:48)
[2018-02-21] MEDS ORDERED: MORPHINE SULFATE 4 MG/ML INJ ONE (20:49)
[2018-02-21] MEDS ORDERED: MEPERIDINE HCL 25 MG/ML VIAL ONE (20:50)
[2018-02-21] MEDS ORDERED: *HYDROmorphone PF 0.5 MG/0.5 ML PERIprocedure ONLY ONE (20:57)
[2018-02-21] MEDS ORDERED: *morphine SULFATE 10 MG/ML PERIprocedure ONLY ONE (21:17)
[2018-02-21] MEDS: LEVOFLOXACIN 750 MG PREMIX INJ 150 ML IV SCH (21:30)
--- NOTE | 2018-02-21 21:54 | MP ---
cc: Corrine Stephens MD DATE OF OPERATION: 02/21/2018 PREOPERATIVE DIAGNOSES: 1. Abscess of left forearm. 2. Abscess of right hand. POSTOPERATIVE DIAGNOSES: 1. Abscess of left forearm. 2. Abscess of right hand. PROCEDURES PERFORMED: 1. Incision and drainage of abscess of the right hand. 2. Incision and drainage of abscess of the left forearm. ANESTHESIA: General. SURGEON: Corrine Stephens MD INDICATIONS FOR PROCEDURE: A 37-year-old female with 2 abscesses, as noted above. FINDINGS: The abscesses at the completion of the procedure were drained. There was a significant amount of pus from the right hand. The abscess cavity was approximately 5 x 3 cm in greatest dimension, involved the dorsal aspect of the hand, just proximal to the MP joint of the index finger and extended dorsally onto the index finger. The abscess of the left forearm was dorsal and only measured approximately 1.5 x 2 cm in greatest dimension. At the completion of the procedure, both were drained and packed. OPERATIVE TIME: Approximately 30 minutes. DESCRIPTION OF PROCEDURE: The patient was seen preoperatively, where the sites were identified. The patient was taken to the operating room and placed in a supine position. Her identity was checked against the arm band and the consent form, site and side confirmed. Timeout called prior to beginning the procedure. Both upper extremities were prepped with Betadine and draped in the usual sterile fashion. Attention was first turned to the left forearm, where the abscess was identified and a transverse incision was made and the abscess cavity was opened. It was drained, curetted, copiously irrigated and packed with iodoform packing. It was dressed with Telfa, antibiotic ointment and a dry dressing. Attention was then turned to the right hand, which had already been spontaneously drained. This was explored with a clamp. A distal incision was made over the dorsal aspect of the index finger, as the abscess cavity did extend all the way to the PIP joint superficially between the deep tissue and the skin. Pressure was used to express a significant amount of clot and pus. The area was explored, loculations were broken up and then the area was copiously irrigated with saline and packed with half-inch iodoform packing in both places. Once this was completed, the hand was cleansed of Betadine and blood and dressed with antibiotic ointment, Telfa, 4 x 4s and [place]. The patient was then taken from the operating room to the recovery room in satisfactory condition, having tolerated the procedure well. MD ROSARIO Walters/ESTELLE/gagan , 08:54 PM , 09:35 PM
[2018-02-21] MEDS ORDERED: ALPRAZolam 0.5 MG TAB PO ONE (22:30)
[2018-02-22] VITALS (10 sets, daily range): BP systolic 105–140; BP diastolic 56–74; PULSE 72–104; RESP 17–20; TEMP 97.9–98.4; O2SAT 94–98
[2018-02-22] MEDS: AZTREONAM INJ 1,000 MG in SODIUM CHLORIDE 0.9% INJ 100 ML IV SCH ×4 (00:39→22:00)
[2018-02-22] MEDS: HYDROmorphone HCL PF 0.5 MG/0.5 ML SYRINGE IV PRN ×5 (01:07→20:16)
[2018-02-22] MEDS ORDERED: diphenhydrAMINE HCL 25 MG CAP PO ONE (01:30)
[2018-02-22] MEDS: ACETAMINOPHEN/HYDROcodone 325 MG/10 MG TAB PO PRN (02:58)
[2018-02-22] MEDS ORDERED: PHARMACY ORDERED LAB ONE (05:45)
[2018-02-22] MEDS: VANCOMYCIN INJ 1,250 MG in SODIUM CHLOR 0.9% 250 ML INJ 250 ML IV SCH (05:52)
[2018-02-22] MEDS ORDERED: HYDROmorphone HCL 2 MG TAB PO ONE (06:00)
[2018-02-22] MEDS ORDERED: oxyCODONE/ACETAMINOPHEN 5 MG/325 MG TAB PO PRN (06:00)
[2018-02-22] MEDS: POVIDONE IODINE 10% OINT 30 GM TUBE TOPICAL SCH (08:14)
[2018-02-22 08:30] LABS: CREATININE 0.54 MG/DL (0.50-1.00)
[2018-02-22] MEDS: POVIDONE IODINE 10% SOLN 118 ML BOTTLE TOP SCH (09:52)
[2018-02-22] MEDS: VANCOMYCIN INJ 1,500 MG in SODIUM CHLORID 0.9% 500 ML INJ 500 ML IV SCH ×2 (09:52→23:22)
--- NOTE | 2018-02-22 12:15 | HHI.PR ---
Subjective Remarks She has pain in her arm at the surgical site. Did not receive any pain medications overnight by IV as patient did not have an 80. Vascular was consulted and patient has IV site now. Continue IV antibiotics. Added Dilaudid IV for breakthrough pain and [place] was changed to Percocets. No fever or chills overnight. No nausea or vomiting no diarrhea constipation. Dressing was changed at bedside by the nurse. Patient also says she has no back on day of cigarettes and will like a nicotine patch. Patient is getting multiple abscesses on her hands and forearms. 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 Objective Vitals Vital Signs Date Time Temp Pulse Resp B/P (MAP) Pulse Ox O2 Delivery O2 Flow Rate FiO2 02/22/18 08:08 98.2 72 18 133/67 (89) 98 02/22/18 08:00 Room Air 2.00 02/22/18 04:10 80 02/22/18 04:00 97.9 80 17 108/57 (74) 95 02/22/18 01:39 90 02/22/18 00:00 98.3 104 18 109/56 (73) 94 02/21/18 22:15 Room Air 02/21/18 21:30 98.2 98 22 159/80 (106) 98 Nasal Cannula 2 02/21/18 21:15 107 19 161/82 (108) 98 Nasal Cannula 2 02/21/18 21:00 107 22 136/81 (99) 98 Simple Mask 6 02/21/18 20:45 97.6 107 14 122/73 (89) 98 Simple Mask 6 02/21/18 20:00 98.8 107 20 111/70 (84) 93 02/21/18 16:00 82 02/21/18 16:00 98.4 76 16 107/55 (72) 96 I/O 02/21/18 02/21/18 02/21/18 02/22/18 02/22/18 02/22/18 06:59 14:59 22:59 06:59 14:59 22:59 Intake Total 340 ml 1762.5 ml 240 ml Output Total 1050 ml 100 ml Balance -710 ml 1662.5 ml 240 ml Intake Oral 240 ml 0 ml 240 ml IV Total 100 ml 562.5 ml Other 1200 ml Output Urine Total 1050 ml 0 ml Estimated Blood Loss 100 ml # Voids 2 2 # Bowel Movements 0 0 Result Diagram: 02/21/18 0645 02/22/18 0506 Imaging Last Impressions Upper Extremity CT 02/20/18 0000 Signed Impressions: Service Date/Time: Tuesday, February 20, 2018 18:24 - CONCLUSION: Dorsal soft tissue swelling of the hand with an area of decreased density projecting at the level of the second metacarpal head that is felt to relate to phlegmon that has yet to liquefy. No liquefied abscess currently seen. Madhu Jackson Jr., MD Objective Remarks GENERAL: This is a well-nourished, well-developed patient, in pain SKIN: Severe Right hand cellulitis with purulent drainage CARDIOVASCULAR: Regular rate and rhythm without murmurs, gallops, or rubs. RESPIRATORY: Clear to auscultation. Breath sounds equal bilaterally. No wheezes , rales, or rhonchi. GASTROINTESTINAL: Abdomen soft, non-tender, nondistended. No hepato-splenomegaly , or palpable masses. No guarding. MUSCULOSKELETAL: Extremities without clubbing, cyanosis, or edema. Right thumb joint tenderness. No calf tenderness. NEUROLOGICAL: Awake and alert. Motor and sensory grossly within normal limits. Normal speech. A/P Assessment and Plan 37 y/o female with a history of MRSA, cervical cancer, and seizures presented to the ED with complaints of a right hand wound for the last 4 days. Sepsis, Cellulitis, right hand and left forearm (on admission with WBC 23.6, HR 121, temp 102.6, lactic 1.3, unknown organism, hx of MRSA) Right hand upper extremity CT reviewed: Dorsal soft tissue swelling of the hand with an area of decreased density projecting at the level of the second metacarpal head that is felt to relate to phlegmon that has yet to liquefy. No liquefied abscess currently seen. 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 No Tobacco use. Nicotine patch. Counselled. Seizures, history not on medication for a few years Seizure precautions Monitor DVT prophylaxis: SCDs Discussed Condition With Patient, nurse DC plan: On IV abx, s/p I &D of abscesses by Dr Stephens 02/21 DC when improved and cleared by ID and hand surgeon Agatha Macedo MD February 22, 2018 12:15
[2018-02-22] MEDS: oxyCODONE/ACETAMINOPHEN 10 MG/325 MG TAB PO PRN ×3 (13:27→22:21)
[2018-02-22] MEDS: REMOVE OLD PATCH T-DERMAL SCH (21:00)
[2018-02-22] MEDS: LEVOFLOXACIN 750 MG PREMIX INJ 150 ML IV SCH (21:24)
[2018-02-23] VITALS (9 sets, daily range): BP systolic 123–152; BP diastolic 58–76; PULSE 56–81; RESP 17–20; TEMP 98–98.6; O2SAT 95–98
[2018-02-23] MEDS: METOCLOPRAMIDE HCL 10 MG/2 ML VIAL IV PUSH PRN (00:11)
[2018-02-23] MEDS: HYDROmorphone HCL PF 0.5 MG/0.5 ML SYRINGE IV PRN ×5 (00:13→20:45)
[2018-02-23] MEDS: oxyCODONE/ACETAMINOPHEN 10 MG/325 MG TAB PO PRN ×5 (02:26→23:15)
[2018-02-23] MEDS: AZTREONAM INJ 1,000 MG in SODIUM CHLORIDE 0.9% INJ 100 ML IV SCH ×2 (05:57→13:17)
--- NOTE | 2018-02-23 08:14 | HHI.PR ---
Subjective Remarks Complains of more pain in her left hand and says she has new developing abscess of the wrist. No fever or chills overnight. Some improvement today. Pain is fairly controlled by current medications. No nausea vomiting Objective Vitals Vital Signs Date Time Temp Pulse Resp B/P (MAP) Pulse Ox O2 Delivery O2 Flow Rate FiO2 02/23/18 04:00 98.3 60 20 134/75 (94) 95 02/23/18 00:00 98.0 73 20 135/67 (89) 98 02/22/18 20:00 98.3 78 20 105/67 (80) 97 02/22/18 16:00 74 02/22/18 16:00 98.4 81 17 140/65 (90) 98 02/22/18 12:07 98.1 80 17 128/74 (92) 98 02/22/18 12:00 89 02/22/18 09:00 103 I/O 02/22/18 02/22/18 02/22/18 02/23/18 02/23/18 02/23/18 07:00 15:00 23:00 07:00 15:00 23:00 Intake Total 240 ml 515 ml 1060 ml 480 ml Output Total 0 ml Balance 240 ml 515 ml 1060 ml 480 ml Intake Oral 240 ml 960 ml 480 ml IV Total 515 ml 100 ml Stool Total 0 ml # Voids 2 4 3 # Bowel Movements 0 1 Result Diagram: 02/21/18 0645 02/22/18 0506 Imaging Last Impressions Upper Extremity CT 02/20/18 0000 Signed Impressions: Service Date/Time: Tuesday, February 20, 2018 18:24 - CONCLUSION: Dorsal soft tissue swelling of the hand with an area of decreased density projecting at the level of the second metacarpal head that is felt to relate to phlegmon that has yet to liquefy. No liquefied abscess currently seen. Madhu Jackson Jr., MD Objective Remarks GENERAL: This is a well-nourished, well-developed patient, in pain SKIN: Severe Right hand cellulitis with purulent drainage CARDIOVASCULAR: Regular rate and rhythm without murmurs, gallops, or rubs. RESPIRATORY: Clear to auscultation. Breath sounds equal bilaterally. No wheezes , rales, or rhonchi. GASTROINTESTINAL: Abdomen soft, non-tender, nondistended. No hepato-splenomegaly , or palpable masses. No guarding. MUSCULOSKELETAL: Extremities without clubbing, cyanosis, or edema. Right thumb joint tenderness. No calf tenderness. NEUROLOGICAL: Awake and alert. Motor and sensory grossly within normal limits. Normal speech. A/P Assessment and Plan 37 yo female with a history of MRSA, cervical cancer, and seizures presented to the ED with complaints of a right hand wound for the last 4 days. Sepsis, Cellulitis, right hand and left forearm (on admission with WBC 23.6, HR 121, temp 102.6, lactic 1.3, unknown organism, hx of MRSA) Right hand upper extremity CT reviewed: Dorsal soft tissue swelling of the hand with an area of decreased density projecting at the level of the second metacarpal head that is felt to relate to phlegmon that has yet to liquefy. No liquefied abscess currently seen. 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 Tobacco use. Nicotine patch. Counselled. Seizures, history not on medication for a few years Seizure precautions Monitor DVT prophylaxis: SCDs Discussed Condition With Patient, nurse DC plan: On IV abx, s/p I &D of abscesses by Dr Stephens 02/21 DC when improved and cleared by ID and hand surgeon Agahta Macedo MD February 23, 2018 08:14
--- NOTE | 2018-02-23 08:55 | HHI.PR ---
Objective Vitals Vital Signs Date Time Temp Pulse Resp B/P (MAP) Pulse Ox O2 Delivery O2 Flow Rate FiO2 02/23/18 04:00 98.3 60 20 134/75 (94) 95 02/23/18 00:00 98.0 73 20 135/67 (89) 98 02/22/18 20:00 98.3 78 20 105/67 (80) 97 02/22/18 16:00 74 02/22/18 16:00 98.4 81 17 140/65 (90) 98 02/22/18 12:07 98.1 80 17 128/74 (92) 98 02/22/18 12:00 89 02/22/18 09:00 103 I/O 02/22/18 02/22/18 02/22/18 02/23/18 02/23/18 02/23/18 07:00 15:00 23:00 07:00 15:00 23:00 Intake Total 240 ml 515 ml 1060 ml 480 ml Output Total 0 ml Balance 240 ml 515 ml 1060 ml 480 ml Intake Oral 240 ml 960 ml 480 ml IV Total 515 ml 100 ml Stool Total 0 ml # Voids 2 4 3 # Bowel Movements 0 1 Result Diagram: 02/21/18 0645 02/22/18 0506 Objective Remarks GENERAL: This is a well-nourished, well-developed patient, in pain SKIN: Severe Right hand cellulitis with purulent drainage CARDIOVASCULAR: Regular rate and rhythm without murmurs, gallops, or rubs. RESPIRATORY: Clear to auscultation. Breath sounds equal bilaterally. No wheezes , rales, or rhonchi. GASTROINTESTINAL: Abdomen soft, non-tender, nondistended. No hepato-splenomegaly , or palpable masses. No guarding. MUSCULOSKELETAL: Extremities without clubbing, cyanosis, or edema. Right thumb joint tenderness. No calf tenderness. NEUROLOGICAL: Awake and alert. Motor and sensory grossly within normal limits. Normal speech. A/P Assessment and Plan 37 y/o female with a history of MRSA, cervical cancer, and seizures presented to the ED with complaints of a right hand wound for the last 4 days. Sepsis, Cellulitis, right hand and left forearm (on admission with WBC 23.6, HR 121, temp 102.6, lactic 1.3, unknown organism, hx of MRSA) Right hand upper extremity CT reviewed: Dorsal soft tissue swelling of the hand with an area of decreased density projecting at the level of the second metacarpal head that is felt to relate to phlegmon that has yet to liquefy. No liquefied abscess currently seen. 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 No Tobacco use. Nicotine patch. Counselled. Seizures, history not on medication for a few years Seizure precautions Monitor DVT prophylaxis: SCDs Discussed Condition With Patient, nurse DC plan: On IV abx, s/p I &D of abscesses by Dr Stephens 02/21 DC when improved and cleared by ID and hand surgeon Agatha Macedo MD February 23, 2018 08:55
--- NOTE | 2018-02-23 09:00 | PD.PN.STU ---
Subjective Remarks She reports increased pain in her Right hand and wrist at the surgical site. She noticed a new, tender lump on the dorsal wrist yesterday that she believes to be a separate abscess from the one that was drained. She reports severe pain , warmth, erythema, and edema over the new nodule that has increased since last night. She asked one of the nurses to nicholas the borders so she could monitor any changes. Otherwise, she reports significant decrease in swelling over the hand and digits distal to the I&D performed on 02/21. She reports drainage that is causing the dressing to stick to the wound, causing pain. She feels like she has increased ROM of the hand and fingers, with the exception of the R index finger distal to the DIP joint. She says the Left arm is doing great s/p I&D. She has pain but it is very mild, and no swelling or discharge. Receiving scheduled IV dilaudid and PO percocet for pain. She says it helps but is not controlling the hand pain, which she mostly attributes to the nodule on the R wrist. Currently on IV vanco, levofloxacin, and aztreonam. Last night the ABX caused her to have nausea, but she received zofran and it helped. No vomiting no diarrhea constipation. No fever or chills overnight. No chest pain, dyspnea, or edema. Dressing is periodically changed at bedside by the nurse. Objective Vitals Vital Signs Date Time Temp Pulse Resp B/P (MAP) Pulse Ox O2 Delivery O2 Flow Rate FiO2 02/23/18 04:00 98.3 60 20 134/75 (94) 95 02/23/18 00:00 98.0 73 20 135/67 (89) 98 02/22/18 20:00 98.3 78 20 105/67 (80) 97 02/22/18 16:00 74 02/22/18 16:00 98.4 81 17 140/65 (90) 98 02/22/18 12:07 98.1 80 17 128/74 (92) 98 02/22/18 12:00 89 02/22/18 09:00 103 I/O 02/22/18 02/22/18 02/22/18 02/23/18 02/23/18 02/23/18 07:00 15:00 23:00 07:00 15:00 23:00 Intake Total 240 ml 515 ml 1060 ml 480 ml Output Total 0 ml Balance 240 ml 515 ml 1060 ml 480 ml Intake Oral 240 ml 960 ml 480 ml IV Total 515 ml 100 ml Stool Total 0 ml # Voids 2 4 3 # Bowel Movements 0 1 Result Diagram: 02/21/18 0645 02/22/18 0506 Objective Remarks GENERAL: Well-nourished, well-developed female, in pain but seems more alert and active than yesterday SKIN: Severe Right hand cellulitis s/p I&D with purulent drainage soaking into dressing. Swelling of digits is present but significantly decreased since yesterday. No erythema of the dorsal hand distal to wound. There is a 1cm firm nodule that is severely TTP over the dorsal aspect of the R wrist. Obvious erythema with warmth, extending ~1cm circumferentially around the nodule. CARDIOVASCULAR: Regular rate and rhythm without murmurs, gallops, or rubs. RESPIRATORY: Clear to auscultation. Breath sounds equal bilaterally. No wheezes , rales, or rhonchi. GASTROINTESTINAL: Abdomen soft, non-tender, nondistended. No hepato-splenomegaly , or palpable masses. No guarding. MUSCULOSKELETAL: Extremities without clubbing, cyanosis, or edema. Right thumb joint tenderness. No calf tenderness. Decreased ROM of Right DIP joint of index finger. NEUROLOGICAL: Awake and alert. Motor and sensory grossly within normal limits. Normal speech. A/P Assessment and Plan Assessment: 37 y/o female with a history of MRSA, cervical cancer, and seizures presented to the ED with complaints of a right hand wound for the last 4 days. She had I& D with Dr. Stephens for abscesses of dorsal R hand and dorsal L forearm, currently post-op day #2. Plan: 1. R upper extremity cellulitis, s/p I&D 02/21/[address] Stephens On admission: WBC 23.6, HR 121, temp 102.6, lactic 1.3, unknown organism, hx of MRSA Right hand upper extremity CT reviewed w/ no dorsal soft tissue swelling of the hand with an area of decreased density projecting at the level of the second metacarpal head that is felt to relate to phlegmon that has yet to liquefy. No liquefied abscess currently seen. Contact isolation Currently on IV antibiotics vancomycin, aztreonam, levofloxacin Followed by Dr. Stephens (hand surgery) and (Dr. 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 Denies IVDU. Increased pain with nodule over dorsal R wrist, possible developing abscess. Will continue current IV ABX, monitoring drainage from the adjacent wound, and awaiting cultures to guide ABX. 2. Tobacco use. Nicotine patch. Counselled. 3. Seizures, history not on medication for a few years Seizure precautions Monitor 4. DVT prophylaxis: SCDs DC when improved and cleared by ID and hand surgeon González Garza February 23, 2018 09:00
[2018-02-23] MEDS: NICOTINE 21 MG/24 HR PATCH T-DERMAL SCH (09:01)
[2018-02-23] MEDS: POVIDONE IODINE 10% SOLN 118 ML BOTTLE TOP SCH (09:02)
[2018-02-23] MEDS: POVIDONE IODINE 10% OINT 30 GM TUBE TOPICAL SCH (09:03)
[2018-02-23] MEDS: VANCOMYCIN INJ 1,500 MG in SODIUM CHLORID 0.9% 500 ML INJ 500 ML IV SCH ×2 (09:06→22:01)
--- NOTE | 2018-02-23 17:34 | PD.PLAS.PN ---
Subjective Remarks The patient reports 2 new masses on the dorsal aspect of her right hand. She also notes less pain and resolution of symptoms to her left forearm wound. Vital Signs Date Time Temp Pulse Resp B/P (MAP) Pulse Ox O2 Delivery O2 Flow Rate FiO2 02/23/18 16:14 98.6 72 18 123/58 (79) 98 02/23/18 12:05 98.1 69 17 146/76 (99) 97 02/23/18 08:05 98.3 56 17 128/62 (84) 98 02/23/18 08:00 69 02/23/18 04:00 98.3 60 20 134/75 (94) 95 02/23/18 00:00 98.0 73 20 135/67 (89) 98 02/22/18 20:00 98.3 78 20 105/67 (80) 97 02/22/18 20:00 Room Air I/O 02/22/18 02/22/18 02/22/18 02/23/18 02/23/18 02/23/18 07:00 15:00 23:00 07:00 15:00 23:00 Intake Total 240 ml 515 ml 1060 ml 480 ml Output Total 0 ml Balance 240 ml 515 ml 1060 ml 480 ml Intake Oral 240 ml 960 ml 480 ml IV Total 515 ml 100 ml Stool Total 0 ml # Voids 2 4 3 # Bowel Movements 0 1 Date/Time Source Procedure Growth Status 02/20/18 16:40 Blood Peripheral Aerobic Blood Culture - Preliminary NO GROWTH IN 3 DAYS Resulted 02/20/18 16:40 Blood Peripheral Anaerobic Blood Culture - Preliminary NO GROWTH IN 3 DAYS Resulted 02/21/18 20:10 Wound Hand Fungal Smear - Final NO FUNGAL ELEMENTS SEEN. Resulted 02/21/18 20:10 Wound Hand Fungal Culture Pending Resulted Result Diagram: 02/21/18 0645 02/22/18 0506 Exam Findings The packing is removed from the right hand wounds. There is much less swelling. Range of motion is slightly improved. In addition there are 2 new non-confluent masses over her wrist. They are fluctuant. They are tender. They do not appear to connect to the previous abscesses. Plan Impression: The patient appears to have 2 new abscesses of the right dorsal wrist. Plan: We will take the patient to the operating room for incision and drainage. The patient understands and accepts the risks and complications of the surgery. Corrine Stephens MD February 23, 2018 17:34
[2018-02-23] MEDS: LEVOFLOXACIN 750 MG PREMIX INJ 150 ML IV SCH (20:40)
[2018-02-23] MEDS: REMOVE OLD PATCH T-DERMAL SCH (20:48)
[2018-02-24] VITALS (7 sets, daily range): BP systolic 122–138; BP diastolic 61–69; PULSE 65–74; RESP 17–20; TEMP 98–99.6; O2SAT 98–100
[2018-02-24] MEDS: HYDROmorphone HCL PF 0.5 MG/0.5 ML SYRINGE IV PRN ×4 (01:43→22:27)
[2018-02-24] MEDS: oxyCODONE/ACETAMINOPHEN 10 MG/325 MG TAB PO PRN ×3 (04:17→19:16)
[2018-02-24] MEDS ORDERED: BUPIVACAINE HCL PF 0.5% 30 ML VIAL ONE (07:05)
[2018-02-24] MEDS ORDERED: GENTAMICIN SULFATE 80 MG/2 ML VIAL ONE (07:05)
[2018-02-24] MEDS ORDERED: DO NOT ADM ANY ANTICOAGULANT DRUGS PRN (08:45)
--- NOTE | 2018-02-24 08:45 | HHI.PR ---
Immediate Post Op Note Procedure Date: February 24, 2018 Pre Op Diagnosis: (1) Abscess of wrist Post Op Diagnosis: (1) Abscess of wrist Surgeon: Corrine Stephens Metal Polisher(s): None Procedure: Incision and drainage of abscess of the right wrist. Anesthesia: General Drains: Other (Iodoform 1/4 inch) Tourniquet time (min at mmHg) NA Patient to: PACU Patient Condition: Good Date/Time of Procedure: SEE SURGICAL CARE RECORD Corrine Stephens MD February 24, 2018 08:45
[2018-02-24] MEDS ORDERED: MEPERIDINE HCL 50 MG/ML VIAL ONE (08:49)
[2018-02-24] MEDS ORDERED: MIDAZOLAM HCL 2 MG/2 ML VIAL ONE (08:52)
[2018-02-24] MEDS ORDERED: *HYDROmorphone PF 0.5 MG/0.5 ML PERIprocedure ONLY ONE ×2 (08:59→09:10)
[2018-02-24] MEDS: NICOTINE 21 MG/24 HR PATCH T-DERMAL SCH (09:00)
[2018-02-24] MEDS: SILVER SULFADIAZINE 1% CR 50 GM JAR TOP SCH (09:00)
[2018-02-24] MEDS: POVIDONE IODINE 10% SOLN 118 ML BOTTLE TOP SCH (09:00)
[2018-02-24] MEDS: POVIDONE IODINE 10% OINT 30 GM TUBE TOPICAL SCH (09:00)
--- NOTE | 2018-02-24 09:25 | MP ---
cc: Corrine Stephens MD DATE OF OPERATION: 02/24/2018 PREOPERATIVE DIAGNOSIS: Abscess of right wrist x 2. POSTOPERATIVE DIAGNOSIS: Abscess of right wrist x 2. PROCEDURE PERFORMED: Incision and drainage of abscess of right wrist x 2. ANESTHESIA: General. SURGEON: Corrine Stephens MD INDICATIONS: A 37-year-old female with a history of multiple abscesses, 2 were drained 2 days ago. The patient developed an additional abscess on the dorsal aspect of the right wrist proximal to the other abscesses. FINDINGS: At the completion of the procedure, the abscesses were drained. OPERATIVE TIME: 15 minutes. PROCEDURE: The patient was seen preoperatively where sites were identified and marked. The patient was then taken to the operating room and placed in supine position. Her identity was checked again the arm band and the consent form, site and side. Timeout called prior to beginning the procedure. The right upper extremity was prepped with Hibiclens and draped in the usual sterile fashion. The areas to be incised were outlined with a marking as a transverse incisions over the abscesses which were over the dorsal wrist crease. A #15 blade was used to make an incision in the distal abscess, which did not appear to drain the proximal abscesses. The 2 did not appear to be confluent initially. An incision was made through the skin, down to the subcutaneous tissues in spread technique. The subcutaneous tissue was entered and there was a significant amount of pus, which did drain. This was copiously irrigated with saline. The other abscess did not drain through this wound, so a second incision was made down through the skin down to the subcutaneous tissue and this was copiously irrigated with saline. Loculations were broken up and the 2 abscesses were joined together and flushed with a significant amount of copious saline until the effluent was clear. Both wounds were then packed with iodoform packing and covered of bacitracin ointment, Telfa, 4 x 4's and Galen. The patient was then taken from the operating room to the recovery room in satisfactory condition having tolerated the procedure well. Postoperative instructions include keep the arm elevated, keeping the area clean and dry and returning several days. Corrine Stephens MD LHB/DL , 08:49 AM , 09:25 AM
[2018-02-24] MEDS ORDERED: PHARMACY ORDERED LAB ONE (09:45)
[2018-02-24] MEDS ORDERED: ONDANSETRON HCL 4 MG/2 ML VIAL IV ONE (12:00)
[2018-02-24] MEDS ORDERED: PROPOFOL 200 MG/20 ML AMP IV ONE (12:00)
[2018-02-24] MEDS ORDERED: LIDOCAINE HCL 1% PF 5 ML SYRINGE OTHER ONE (12:00)
[2018-02-24] MEDS ORDERED: KETOROLAC TROMETHAMINE 30 MG/ML (IVP) VIAL IV PUSH ONE (12:00)
[2018-02-24] MEDS: VANCOMYCIN INJ 1,500 MG in SODIUM CHLORID 0.9% 500 ML INJ 500 ML IV SCH (12:15)
[2018-02-24 14:33] LABS: AUTOMATED NEUTROPHIL # 6.6 TH/MM3 (1.8-7.7); BASOPHIL # 0.1 TH/MM3 (0-0.2); BASOPHIL % 0.6 % (0.0-2.0); EOSINOPHIL # 0.2 TH/MM3 (0-0.4); EOSINOPHIL % 1.8 % (0.0-4.0); HEMATOCRIT 33.1 % (35.0-46.0); HEMOGLOBIN 10.6 GM/DL (11.6-15.3); LYMPH % 28.9 % (9.0-44.0); MEAN CORPUSCULAR HEMOGLOBIN 26.3 PG (27.0-34.0); MEAN CORPUSCULAR HGB CONC 32.1 % (32.0-36.0); MEAN PLATELET VOLUME 7.4 FL (7.0-11.0); MONO % 6.1 % (0.0-8.0); MONOCYTE # 0.6 TH/MM3 (0-0.9); NEUT % 62.6 % (16.0-70.0); PLATELET COUNT 384 TH/MM3 (150-450); RED BLOOD COUNT 4.04 MIL/MM3 (4.00-5.30); RED CELL DISTRIBUTION WIDTH 15.6 % (11.6-17.2); WHITE BLOOD COUNT 10.5 TH/MM3 (4.0-11.0)
[2018-02-24 15:01] LABS: BICARBONATE 23.3 MEQ/L (21.0-32.0); CALCIUM 8.1 MG/DL (8.5-10.1); CREATININE 0.74 MG/DL (0.50-1.00)
--- NOTE | 2018-02-24 15:53 | HHI.PR ---
Subjective Remarks Patient says that right hand pain continues severe since incision and drainage this afternoon. Objective Vital Signs Date Time Temp Pulse Resp B/P (MAP) Pulse Ox O2 Delivery O2 Flow Rate FiO2 02/24/18 12:15 98.0 65 17 138/61 (86) 99 02/24/18 09:15 98.3 72 16 118/65 (82) 96 Room Air 02/24/18 09:00 70 16 113/68 (83) 95 Room Air 02/24/18 08:45 98.4 70 16 123/74 (90) 100 Nasal Cannula 3 02/24/18 04:00 99.6 65 20 130/67 (88) 99 02/24/18 00:00 65 02/24/18 00:00 98.0 71 20 122/67 (85) 100 02/23/18 20:00 67 02/23/18 20:00 Room Air 02/23/18 20:00 98.4 71 20 152/70 (97) 98 02/23/18 16:14 98.6 72 18 123/58 (79) 98 02/23/18 16:00 81 I/O 02/23/18 02/23/18 02/23/18 02/24/18 02/24/18 02/24/18 06:59 14:59 22:59 06:59 14:59 22:59 Intake Total 1145 ml 510 ml 515 ml 500 ml Output Total 1700 ml 2600 ml 5 ml Balance 1145 ml -1190 ml -2085 ml 495 ml Intake Oral 480 ml 360 ml IV Total 665 ml 150 ml 515 ml Other 500 ml Output Urine Total 1700 ml 2600 ml Estimated Blood Loss 5 ml # Voids 3 0 # Bowel Movements 1 1 Result Diagram: 02/24/18 1417 02/24/18 1417 Objective Remarks GENERAL: Patient sitting up in bed. Appears comfortable, sleeping until I walk in. SKIN: Warm and dry. HEAD: Normocephalic. EYES: No scleral icterus. No injection or drainage. NECK: Supple, trachea midline. No JVD. CARDIOVASCULAR: Regular rate and rhythm without murmurs, gallops, or rubs. RESPIRATORY: Breath sounds equal bilaterally. No accessory muscle use. GASTROINTESTINAL: Abdomen soft, non-tender, nondistended. MUSCULOSKELETAL: No cyanosis, or edema. Right hand dressed. Peripheral perfusion intact. BACK: Nontender without obvious deformity. No CVA tenderness. A/P Assessment and Plan 37 yo female with a history of MRSA, cervical cancer, and seizures presented to the ED with complaints of a right hand wound for the last 4 days. //Sepsis, Cellulitis, right hand and left forearm (on admission with WBC 23.6, HR 121, temp 102.6, lactic 1.3, unknown organism, hx of MRSA) Right hand upper extremity CT reviewed: Dorsal soft tissue swelling of the hand with an area of decreased density projecting at the level of the second metacarpal head that is felt to relate to phlegmon that has yet to liquefy. No liquefied abscess currently seen. 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 = Continue antibiotics as per infectious disease. Single dose of IV morphine ordered. //Tobacco use. Nicotine patch. Counselled. //Seizures, history not on medication for a few years Seizure precautions Monitor //DVT prophylaxis: SCDs Discussed Condition With Patient, nurse Discharge Planning Pending infectious disease and had surgery clearance per Willie Serrano MD February 24, 2018 15:53
[2018-02-24] MEDS ORDERED: MORPHINE SULFATE 4 MG/ML INJ SQ ONE (16:00)
[2018-02-24] MEDS ORDERED: MORPHINE SULFATE 4 MG/ML INJ IV PUSH ONE (16:45)
--- NOTE | 2018-02-24 17:31 | HHI.IDPN ---
Subjective Subjective Remarks pt developped more abscesses proximally and was taken to OR this am - significant amount of pus was encounted Unrevealing culture, skin gillian Previously MRSA L foreamr clx from december with oral gillian including Eikenella, vir strep Antibiotics levaquine vancomycin Allergies: Coded Allergies: adhesive (Verified Allergy, Severe, Rash, 12/03/17) penicillin G (Verified Allergy, Severe, Anaphylaxis, 12/03/17) lidocaine (Verified Allergy, Unknown, 02/20/18) Objective . Vital Signs Date Time Temp Pulse Resp B/P (MAP) Pulse Ox O2 Delivery O2 Flow Rate FiO2 02/24/18 12:15 98.0 65 17 138/61 (86) 99 02/24/18 09:15 98.3 72 16 118/65 (82) 96 Room Air 02/24/18 09:00 70 16 113/68 (83) 95 Room Air 02/24/18 08:45 98.4 70 16 123/74 (90) 100 Nasal Cannula 3 02/24/18 04:00 99.6 65 20 130/67 (88) 99 02/24/18 00:00 65 02/24/18 00:00 98.0 71 20 122/67 (85) 100 02/23/18 20:00 67 02/23/18 20:00 Room Air 02/23/18 20:00 98.4 71 20 152/70 (97) 98 02/24/18 02/24/18 02/25/18 15:00 23:00 07:00 Intake Total 500 ml Output Total 5 ml Balance 495 ml Other 500 ml Estimated Blood Loss 5 ml # Voids 0 . Laboratory Tests Test 02/24/18 14:17 White Blood Count 10.5 TH/MM3 Red Blood Count 4.04 MIL/MM3 Hemoglobin 10.6 GM/DL Hematocrit 33.1 % Mean Corpuscular Volume 82.0 FL Mean Corpuscular Hemoglobin 26.3 PG Mean Corpuscular Hemoglobin Concent 32.1 % Red Cell Distribution Width 15.6 % Platelet Count 384 TH/MM3 Mean Platelet Volume 7.4 FL Neutrophils (%) (Auto) 62.6 % Lymphocytes (%) (Auto) 28.9 % Monocytes (%) (Auto) 6.1 % Eosinophils (%) (Auto) 1.8 % Basophils (%) (Auto) 0.6 % Neutrophils # (Auto) 6.6 TH/MM3 Lymphocytes # (Auto) 3.0 TH/MM3 Monocytes # (Auto) 0.6 TH/MM3 Eosinophils # (Auto) 0.2 TH/MM3 Basophils # (Auto) 0.1 TH/MM3 CBC Comment DIFF FINAL Differential Comment Laboratory Tests Test 02/24/18 14:17 Blood Urea Nitrogen 10 MG/DL Creatinine 0.74 MG/DL Random Glucose 121 MG/DL Calcium Level 8.1 MG/DL Sodium Level 141 MEQ/L Potassium Level 3.6 MEQ/L Chloride Level 107 MEQ/L Carbon Dioxide Level 23.3 MEQ/L Anion Gap 11 MEQ/L Estimat Glomerular Filtration Rate 88 ML/MIN Microbiology Date/Time Source Procedure Growth Status 02/21/18 20:10 Wound Hand Fungal Smear - Final NO FUNGAL ELEMENTS SEEN. Resulted 02/21/18 20:10 Wound Hand Fungal Culture Pending Resulted 02/21/18 20:10 Wound Hand Acid Fast Stain - Final NO ACID FAST BACILLI SEEN Resulted 02/21/18 20:10 Wound Hand Mycobacterial Culture Pending Resulted 02/21/18 20:10 Wound Hand Gram Stain - Final Complete 02/21/18 20:10 Wound Hand Wound Culture - Final Complete Imaging Last Impressions Upper Extremity CT 02/20/18 0000 Signed Impressions: Service Date/Time: Tuesday, February 20, 2018 18:24 - CONCLUSION: Dorsal soft tissue swelling of the hand with an area of decreased density projecting at the level of the second metacarpal head that is felt to relate to phlegmon that has yet to liquefy. No liquefied abscess currently seen. Madhu Jackson Jr., MD Physical Exam CONSTITUTIONAL/GENERAL: This is an adequately nourished patient, in no apparent distress. TUBES/LINES/DRAINS: SKIN: No jaundice, rashes, or lesions. CARDIOVASCULAR: Regular rate and rhythm without murmurs, gallops, or rubs. No JVD. Peripheral pulses symmetric. RESPIRATORY/CHEST: Symmetric, unlabored respirations. Clear to auscultation. Breath sounds equal bilaterally. No wheezes, rales, or rhonchi. GASTROINTESTINAL: Abdomen soft, non-tender, nondistended. No hepato-splenomegaly , or palpable masses. No guarding. Bowel sounds present. GENITOURINARY: Without palpable bladder distension. Fontenot catheter in place. MUSCULOSKELETAL: Extremities without clubbing, cyanosis, No joint tenderness or effusion noted. No calf tenderness. No mottling or clubbing. R hand with post op dresing in place NEUROLOGICAL: Awake and alert. Motor and sensory grossly within normal limits. PSYCHIATRIC: upset about her recurrent infections Assessment & Plan Remarks Severe infection of R hand, combination of abscess, phelgmone, liekly involving deeper structures likel joint, endens More abscesses, requiring re- exploration - unrevealing clx - tenosynovitis ? 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 R hand MRI will dw hand surgeon Ivone Henriquez MD February 24, 2018 17:31
[2018-02-24] MEDS ORDERED: GADODIAMIDE PF 287 MG/ML 5 ML VIAL (for RAD MRI) IVCONTRAST ONE (21:31)
--- NOTE | 2018-02-24 22:05 | RADRPT ---
EXAM DATE: 02/24/2018 9:54 PM EDT AGE/SEX: 37 years / Female INDICATIONS: Abscess. Pain in second MCPJ towards Thumb. CLINICAL DATA: This is the patient's initial encounter. Patient reports that signs and symptoms have been present for 4 - 6 months and indicates a pain score of 7/10. MEDICAL/SURGICAL HISTORY: Carcinoma, cervical. Lymphoma. . I&D right hand x7. COMPARISON: No prior [facility] exams available for comparison. TECHNIQUE: Multiplanar, multisequence MRI examination was performed without contrast and after the i ntravenous administration of 15 ml Omniscan (gadodiamide) contrast as a single exam dose. FINDINGS: There is a cellulitis on the dorsum of hand especially around the second metacarpal. There is a poste rior ulceration and loculated subcutaneous abscess measuring up to about 2.5 x 1.2 cm., more towards the wrist. An additional smaller subcentimeter abscess is suspected around the distal second metacarp al as well. The cellulitis extends into the proximal dorsal fingers and circumferentially around the proximal second finger. There are no marrow signal abnormalities to suggest osteomyelitis. CONCLUSION: 1. Extensive cellulitis on the dorsum of the hand extending towards the wrist and around the proxima l phalanges, especially the second with subcutaneous abscess and ulceration as measured above. No mar row signal abnormality to suggest osteomyelitis. Electronically signed by: Sandro Jacobs MD 02/24/2018 10:04 PM EDT
[2018-02-24] MEDS: REMOVE OLD PATCH T-DERMAL SCH (22:27)
[2018-02-24] MEDS: LEVOFLOXACIN 750 MG PREMIX INJ 150 ML IV SCH (22:27)
[2018-02-25] VITALS (7 sets, daily range): BP systolic 119–172; BP diastolic 60–94; PULSE 60–92; RESP 17–20; TEMP 98–99.5; O2SAT 97–99
[2018-02-25] MEDS: oxyCODONE/ACETAMINOPHEN 10 MG/325 MG TAB PO PRN ×5 (00:11→23:12)
[2018-02-25] MEDS: VANCOMYCIN INJ 1,500 MG in SODIUM CHLORID 0.9% 500 ML INJ 500 ML IV SCH ×3 (00:12→20:42)
[2018-02-25] MEDS: HYDROmorphone HCL PF 0.5 MG/0.5 ML SYRINGE IV PRN ×4 (02:28→20:42)
[2018-02-25 07:42] LABS: AUTOMATED NEUTROPHIL # 4.7 TH/MM3 (1.8-7.7); BASOPHIL % 0.3 % (0.0-2.0); EOSINOPHIL # 0.2 TH/MM3 (0-0.4); EOSINOPHIL % 2.7 % (0.0-4.0); HEMATOCRIT 35.1 % (35.0-46.0); HEMOGLOBIN 11.7 GM/DL (11.6-15.3); LYMPH % 33.5 % (9.0-44.0); LYMPHOCYTE # 2.8 TH/MM3 (1.0-4.8); MEAN CELL VOLUME 80.9 FL (80.0-100.0); MEAN CORPUSCULAR HGB CONC 33.4 % (32.0-36.0); MEAN PLATELET VOLUME 7.4 FL (7.0-11.0); MONOCYTE # 0.6 TH/MM3 (0-0.9); NEUT % 56.5 % (16.0-70.0); PLATELET COUNT 398 TH/MM3 (150-450); RED BLOOD COUNT 4.33 MIL/MM3 (4.00-5.30); RED CELL DISTRIBUTION WIDTH 15.3 % (11.6-17.2); WHITE BLOOD COUNT 8.3 TH/MM3 (4.0-11.0)
[2018-02-25 08:15] LABS: ALBUMIN 2.6 GM/DL (3.4-5.0); BICARBONATE 26.5 MEQ/L (21.0-32.0); CALCIUM 8.4 MG/DL (8.5-10.1); CREATININE 0.67 MG/DL (0.50-1.00); MAGNESIUM 2.1 MG/DL (1.5-2.5)
[2018-02-25 09:00] LABS: CORRECTED NUCLEATED RBC 1 /100 WBC (0-0); LYMPHOCYTES 41 % (9-44); MONOCYTES 6 % (0-8); NEUTROPHIL # MANUAL DIFF 4.2 TH/MM3 (1.8-7.7); NUCLEATED RED BLOOD CELL 1 (0-0); POLYS (SEG NEUTROPHILS) 51 % (16-70)
[2018-02-25] MEDS: POVIDONE IODINE 10% OINT 30 GM TUBE TOPICAL SCH (09:00)
[2018-02-25] MEDS: POVIDONE IODINE 10% SOLN 118 ML BOTTLE TOP SCH (09:00)
[2018-02-25] MEDS: SILVER SULFADIAZINE 1% CR 50 GM JAR TOP SCH (09:14)
[2018-02-25] MEDS: NICOTINE 21 MG/24 HR PATCH T-DERMAL SCH (09:15)
--- NOTE | 2018-02-25 12:03 | HHI.PR ---
Subjective Remarks Patient reports that right hand pain continues. She once IV morphine as needed for dressing changes. Objective Vital Signs Date Time Temp Pulse Resp B/P (MAP) Pulse Ox O2 Delivery O2 Flow Rate FiO2 02/25/18 04:00 98.2 60 20 119/60 (79) 99 02/25/18 04:00 60 02/25/18 00:00 73 02/25/18 00:00 98.8 85 20 145/86 (105) 97 02/24/18 20:00 73 02/24/18 20:00 Room Air 02/24/18 16:05 98.2 65 17 137/69 (91) 98 02/24/18 16:00 74 02/24/18 12:15 98.0 65 17 138/61 (86) 99 I/O 02/24/18 02/24/18 02/24/18 02/25/18 02/25/18 02/25/18 07:00 15:00 23:00 07:00 15:00 23:00 Intake Total 515 ml 500 ml 480 ml 665 ml Output Total 2600 ml 5 ml 1000 ml Balance -2085 ml 495 ml -520 ml 665 ml Intake Oral 480 ml IV Total 515 ml 665 ml Other 500 ml Output Urine Total 2600 ml 1000 ml Estimated Blood Loss 5 ml # Voids 0 # Bowel Movements 1 Result Diagram: 02/25/18 0707 02/25/18 07 Objective Remarks GENERAL: Patient sitting up in bed. Appears comfortable. Awake, alert. SKIN: Warm and dry. HEAD: Normocephalic. EYES: No scleral icterus. No injection or drainage. NECK: Supple, trachea midline. No JVD. CARDIOVASCULAR: Regular rate and rhythm without murmurs, gallops, or rubs. RESPIRATORY: Breath sounds equal bilaterally. No accessory muscle use. GASTROINTESTINAL: Abdomen soft, non-tender, nondistended. MUSCULOSKELETAL: No cyanosis, or edema. Right hand dressed. Peripheral perfusion intact. BACK: Nontender without obvious deformity. No CVA tenderness. A/P Assessment and Plan 37 yo female with a history of MRSA, cervical cancer, and seizures presented to the ED with complaints of a right hand wound for the last 4 days. //Sepsis, Cellulitis, right hand and left forearm (on admission with WBC 23.6, HR 121, temp 102.6, lactic 1.3, unknown organism, hx of MRSA) Right hand upper extremity CT reviewed: Dorsal soft tissue swelling of the hand with an area of decreased density projecting at the level of the second metacarpal head that is felt to relate to phlegmon that has yet to liquefy. No liquefied abscess currently seen. 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 = Continue antibiotics as per infectious disease. = 02/25. Will order IV morphine as needed prior to dressing changes. //Tobacco use. Nicotine patch. Counselled. //Seizures, history not on medication for a few years Seizure precautions Monitor //DVT prophylaxis: SCDs Discussed Condition With Patient, nurse Discharge Planning Pending infectious disease and had surgery clearance. Willie Serrano MD February 25, 2018 12:03
[2018-02-25] MEDS ORDERED: MORPHINE SULFATE 4 MG/ML INJ IV PUSH PRN (12:15)
--- NOTE | 2018-02-25 14:10 | HHI.IDPN ---
Subjective Subjective Remarks co severe R hand pain no fever no leukocyrtosis MRI with an abscesses x 2 but no e/o osteo Antibiotics levaquine vancomycin Allergies: Coded Allergies: adhesive (Verified Allergy, Severe, Rash, 12/03/17) penicillin G (Verified Allergy, Severe, Anaphylaxis, 12/03/17) lidocaine (Verified Allergy, Unknown, 02/20/18) Objective . Vital Signs Date Time Temp Pulse Resp B/P (MAP) Pulse Ox O2 Delivery O2 Flow Rate FiO2 02/25/18 04:00 98.2 60 20 119/60 (79) 99 02/25/18 04:00 60 02/25/18 00:00 73 02/25/18 00:00 98.8 85 20 145/86 (105) 97 02/24/18 20:00 73 02/24/18 20:00 Room Air 02/24/18 16:05 98.2 65 17 137/69 (91) 98 02/24/18 16:00 74 . Laboratory Tests Test 02/24/18 14:17 02/25/18 07:07 White Blood Count 10.5 TH/MM3 8.3 TH/MM3 Red Blood Count 4.04 MIL/MM3 4.33 MIL/MM3 Hemoglobin 10.6 GM/DL 11.7 GM/DL Hematocrit 33.1 % 35.1 % Mean Corpuscular Volume 82.0 FL 80.9 FL Mean Corpuscular Hemoglobin 26.3 PG 27.0 PG Mean Corpuscular Hemoglobin Concent 32.1 % 33.4 % Red Cell Distribution Width 15.6 % 15.3 % Platelet Count 384 TH/MM3 398 TH/MM3 Mean Platelet Volume 7.4 FL 7.4 FL Neutrophils (%) (Auto) 62.6 % 56.5 % Lymphocytes (%) (Auto) 28.9 % 33.5 % Monocytes (%) (Auto) 6.1 % 7.0 % Eosinophils (%) (Auto) 1.8 % 2.7 % Basophils (%) (Auto) 0.6 % 0.3 % Neutrophils # (Auto) 6.6 TH/MM3 4.7 TH/MM3 Lymphocytes # (Auto) 3.0 TH/MM3 2.8 TH/MM3 Monocytes # (Auto) 0.6 TH/MM3 0.6 TH/MM3 Eosinophils # (Auto) 0.2 TH/MM3 0.2 TH/MM3 Basophils # (Auto) 0.1 TH/MM3 0.0 TH/MM3 CBC Comment DIFF FINAL AUTO DIFF Differential Comment FINAL DIFF MANUAL Differential Total Cells Counted 100 Neutrophils % (Manual) 51 % Lymphocytes % 41 % Monocytes % 6 % Eosinophils % 2 % Neutrophils # (Manual) 4.2 TH/MM3 Nucleated Red Blood Cells 1 /100 WBC Platelet Estimate NORMAL Platelet Morphology Comment NORMAL Red Cell Morphology Comment NORMAL Laboratory Tests Test 02/24/18 14:17 02/25/18 07:02 Blood Urea Nitrogen 10 MG/DL 9 MG/DL Creatinine 0.74 MG/DL 0.67 MG/DL Random Glucose 121 MG/DL 82 MG/DL Calcium Level 8.1 MG/DL 8.4 MG/DL Sodium Level 141 MEQ/L 141 MEQ/L Potassium Level 3.6 MEQ/L 4.1 MEQ/L Chloride Level 107 MEQ/L 106 MEQ/L Carbon Dioxide Level 23.3 MEQ/L 26.5 MEQ/L Anion Gap 11 MEQ/L 9 MEQ/L Estimat Glomerular Filtration Rate 88 ML/MIN 99 ML/MIN Albumin 2.6 GM/DL Phosphorus Level 4.0 MG/DL Magnesium Level 2.1 MG/DL Imaging Last Impressions Hand MRI 02/24/18 0000 Signed Impressions: CONCLUSION: 1. Extensive cellulitis on the dorsum of the hand extending towards the wrist and around the proximal phalanges, especially the second with subcutaneous absc ess and ulceration as measured above. No marrow signal abnormality to suggest o steomyelitis. Upper Extremity CT 02/20/18 0000 Signed Impressions: Service Date/Time: Tuesday, February 20, 2018 18:24 - CONCLUSION: Dorsal soft tissue swelling of the hand with an area of decreased density projecting at the level of the second metacarpal head that is felt to relate to phlegmon that has yet to liquefy. No liquefied abscess currently seen. Madhu Jackson Jr., MD Physical Exam CONSTITUTIONAL/GENERAL: This is an adequately nourished patient, in no apparent distress. TUBES/LINES/DRAINS: SKIN: No jaundice, rashes, or lesions. CARDIOVASCULAR: Regular rate and rhythm without murmurs, gallops, or rubs. No JVD. Peripheral pulses symmetric. RESPIRATORY/CHEST: Symmetric, unlabored respirations. Clear to auscultation. Breath sounds equal bilaterally. No wheezes, rales, or rhonchi. GASTROINTESTINAL: Abdomen soft, non-tender, nondistended. No hepato-splenomegaly , or palpable masses. No guarding. Bowel sounds present. GENITOURINARY: Without palpable bladder distension. MUSCULOSKELETAL: Extremities without clubbing, cyanosis, No joint tenderness or effusion noted. No calf tenderness. No mottling or clubbing. R hand with e/o diminished edema, erytham, wounds with purulent bloody d/c exquisetely tender NEUROLOGICAL: Awake and alert. Motor and sensory grossly within normal limits. PSYCHIATRIC: upset about her recurrent infections Assessment & Plan Remarks Severe infection of R hand, combination of abscess, phelgmone, liekly involving deeper structures likel joint, endens More abscesses, requiring re- exploration - unrevealing clx R hand tenosynovitis, chronic , relapsing sp 7 surgeries ? - mycobacterial infection L foream abscess sp drainagem, cont levaquin and vancomycin for now will need cultures from each drainage also will need path fu [employer], fungal clx will dw hand surgeon Ivone Henriquez MD February 25, 2018 14:10
[2018-02-25] MEDS: LEVOFLOXACIN 750 MG PREMIX INJ 150 ML IV SCH (20:41)
[2018-02-25] MEDS: REMOVE OLD PATCH T-DERMAL SCH (20:43)
[2018-02-25] MEDS: diphenhydrAMINE HCL 25 MG CAP PO PRN (20:57)
[2018-02-26] VITALS (8 sets, daily range): BP systolic 109–129; BP diastolic 55–73; PULSE 60–96; RESP 16–20; TEMP 97.8–98.8; O2SAT 95–98
[2018-02-26] MEDS: HYDROmorphone HCL PF 0.5 MG/0.5 ML SYRINGE IV PRN ×4 (01:11→18:40)
[2018-02-26] MEDS: oxyCODONE/ACETAMINOPHEN 10 MG/325 MG TAB PO PRN ×4 (06:24→23:16)
[2018-02-26] MEDS: NICOTINE 21 MG/24 HR PATCH T-DERMAL SCH (08:54)
[2018-02-26] MEDS: POVIDONE IODINE 10% SOLN 118 ML BOTTLE TOP SCH (08:55)
[2018-02-26] MEDS: SILVER SULFADIAZINE 1% CR 50 GM JAR TOP SCH (08:55)
[2018-02-26] MEDS: POVIDONE IODINE 10% OINT 30 GM TUBE TOPICAL SCH (09:00)
[2018-02-26] MEDS: VANCOMYCIN INJ 1,500 MG in SODIUM CHLORID 0.9% 500 ML INJ 500 ML IV SCH ×2 (09:06→20:57)
[2018-02-26 10:10] LABS: CREATININE 0.84 MG/DL (0.50-1.00)
--- NOTE | 2018-02-26 16:52 | HHI.PR ---
Subjective Remarks She says she is feeling all right except for extreme right hand pain which continues. Denies any chest pain or shortness of breath. Denies nausea vomiting. Positive bowel movement today. Objective Vital Signs Date Time Temp Pulse Resp B/P (MAP) Pulse Ox O2 Delivery O2 Flow Rate FiO2 02/26/18 12:00 98.6 81 20 121/55 (77) 98 02/26/18 08:45 98.2 68 18 116/55 (75) 98 02/26/18 04:00 97.8 67 17 109/66 (80) 98 02/26/18 02:12 Room Air 02/26/18 00:00 71 02/26/18 00:00 98.2 77 16 129/73 (91) 95 02/25/18 20:00 78 02/25/18 20:00 99.5 92 18 129/84 (99) 97 I/O 02/25/18 02/25/18 02/25/18 02/26/18 02/26/18 02/26/18 07:00 15:00 23:00 07:00 15:00 23:00 Intake Total 665 ml 1200 ml 740 ml Output Total 2800 ml 2000 ml Balance 665 ml -1600 ml -1260 ml Intake Oral 1200 ml 740 ml IV Total 665 ml Output Urine Total 2800 ml 2000 ml # Bowel Movements 0 Result Diagram: 02/25/18 0707 02/26/18 0940 Objective Remarks GENERAL: Patient sitting up in bed. Appears comfortable. Awake, alert. Exam unchanged. SKIN: Warm and dry. HEAD: Normocephalic. EYES: No scleral icterus. No injection or drainage. NECK: Supple, trachea midline. No JVD. CARDIOVASCULAR: Regular rate and rhythm without murmurs, gallops, or rubs. RESPIRATORY: Breath sounds equal bilaterally. No accessory muscle use. GASTROINTESTINAL: Abdomen soft, non-tender, nondistended. MUSCULOSKELETAL: No cyanosis, or edema. Right hand dressed. Peripheral perfusion intact. BACK: Nontender without obvious deformity. No CVA tenderness. A/P Assessment and Plan 37 yo female with a history of MRSA, cervical cancer, and seizures presented to the ED with complaints of a right hand wound for the last 4 days. //Sepsis, Cellulitis, right hand and left forearm (on admission with WBC 23.6, HR 121, temp 102.6, lactic 1.3, unknown organism, hx of MRSA) Right hand upper extremity CT reviewed: Dorsal soft tissue swelling of the hand with an area of decreased density projecting at the level of the second metacarpal head that is felt to relate to phlegmon that has yet to liquefy. No liquefied abscess currently seen. 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 = Continue antibiotics as per infectious disease. = 02/25. IV morphine as needed prior to dressing changes. = 02/26. Hand surgery and infectious disease following. Continue antibiotics. Appreciate assistance. //Tobacco use. Nicotine patch. Counselled. //Seizures, history not on medication for a few years Seizure precautions Monitor //DVT prophylaxis: SCDs Discussed Condition With Patient, nurse Discharge Planning Pending infectious disease and had surgery clearance. Willie Serrano MD February 26, 2018 16:52
[2018-02-26] MEDS: LEVOFLOXACIN 750 MG PREMIX INJ 150 ML IV SCH (20:56)
[2018-02-26] MEDS: REMOVE OLD PATCH T-DERMAL SCH (20:56)
[2018-02-27] VITALS (10 sets, daily range): BP systolic 104–120; BP diastolic 56–78; PULSE 65–81; RESP 14–18; TEMP 98.1–98.5; O2SAT 95–100
[2018-02-27] MEDS: diphenhydrAMINE HCL 25 MG CAP PO PRN ×2 (01:06→21:52)
[2018-02-27] MEDS: HYDROmorphone HCL PF 0.5 MG/0.5 ML SYRINGE IV PRN ×5 (01:06→21:52)
[2018-02-27] MEDS: oxyCODONE/ACETAMINOPHEN 10 MG/325 MG TAB PO PRN ×4 (04:11→19:56)
[2018-02-27] MEDS: POVIDONE IODINE 10% SOLN 118 ML BOTTLE TOP SCH (09:00)
[2018-02-27] MEDS: NICOTINE 21 MG/24 HR PATCH T-DERMAL SCH (09:14)
[2018-02-27] MEDS: METOCLOPRAMIDE HCL 10 MG/2 ML VIAL IV PUSH PRN ×2 (09:15→21:52)
[2018-02-27] MEDS ORDERED: PHARMACY ORDERED LAB ONE (09:45)
[2018-02-27] MEDS: POVIDONE IODINE 10% OINT 30 GM TUBE TOPICAL SCH (10:10)
[2018-02-27] MEDS: SILVER SULFADIAZINE 1% CR 50 GM JAR TOP SCH (10:10)
[2018-02-27] MEDS: VANCOMYCIN INJ 1,500 MG in SODIUM CHLORID 0.9% 500 ML INJ 500 ML IV SCH ×2 (10:27→14:06)
--- NOTE | 2018-02-27 13:48 | HHI.IDPN ---
Subjective Subjective Remarks co severe R hand pain no fever Antibiotics levaquine vancomycin Allergies: Coded Allergies: adhesive (Verified Allergy, Severe, Rash, 12/03/17) penicillin G (Verified Allergy, Severe, Anaphylaxis, 12/03/17) lidocaine (Verified Allergy, Unknown, 02/20/18) Objective . Vital Signs Date Time Temp Pulse Resp B/P (MAP) Pulse Ox O2 Delivery O2 Flow Rate FiO2 02/27/18 12:00 81 02/27/18 08:04 98.2 71 16 107/58 (74) 97 02/27/18 08:00 75 02/27/18 05:56 Room Air 02/27/18 04:16 72 14 104/56 (72) 97 02/27/18 04:00 65 02/27/18 00:00 80 02/26/18 23:55 Room Air 02/26/18 20:00 98.5 75 16 110/64 (79) 96 02/26/18 20:00 83 02/26/18 16:51 98.8 96 18 112/65 (81) 97 02/26/18 16:00 76 . Laboratory Tests Test 02/26/18 09:40 Creatinine 0.84 MG/DL Estimat Glomerular Filtration Rate 76 ML/MIN Imaging Last Impressions Hand MRI 02/24/18 0000 Signed Impressions: CONCLUSION: 1. Extensive cellulitis on the dorsum of the hand extending towards the wrist and around the proximal phalanges, especially the second with subcutaneous absc ess and ulceration as measured above. No marrow signal abnormality to suggest o steomyelitis. Upper Extremity CT 02/20/18 0000 Signed Impressions: Service Date/Time: Tuesday, February 20, 2018 18:24 - CONCLUSION: Dorsal soft tissue swelling of the hand with an area of decreased density projecting at the level of the second metacarpal head that is felt to relate to phlegmon that has yet to liquefy. No liquefied abscess currently seen. Madhu Jackson Jr., MD Physical Exam CONSTITUTIONAL/GENERAL: This is an adequately nourished patient, in no apparent distress. TUBES/LINES/DRAINS: SKIN: No jaundice, rashes, or lesions. CARDIOVASCULAR: Regular rate and rhythm without murmurs, gallops, or rubs. No JVD. Peripheral pulses symmetric. RESPIRATORY/CHEST: Symmetric, unlabored respirations. Clear to auscultation. Breath sounds equal bilaterally. No wheezes, rales, or rhonchi. GASTROINTESTINAL: Abdomen soft, non-tender, nondistended. No hepato-splenomegaly , or palpable masses. No guarding. Bowel sounds present. GENITOURINARY: Without palpable bladder distension. MUSCULOSKELETAL: Extremities without clubbing, cyanosis, No joint tenderness or effusion noted. No calf tenderness. No mottling or clubbing. R hand with mostly resolved edema, erytham, wounds with much less d/c exquisetely tender edema resolved NEUROLOGICAL: Awake and alert. Motor and sensory grossly within normal limits. PSYCHIATRIC: upset about her recurrent infections Assessment & Plan Remarks Severe infection of R hand, combination of abscess, phelgmone, liekly involving deeper structures likel joint, endens More abscesses, requiring re- exploration - unrevealing clx R hand tenosynovitis, chronic , relapsing sp 7 surgeries ? - mycobacterial infection L foream abscess sp drainage cont levaquin and vancomycin for now will need cultures from subsequent surgical drainage if needed also will need path fu [employer], fungal clx will dw hand surgeon anticipate d/c on oral abx Ivone Henriquez MD February 27, 2018 13:48
--- NOTE | 2018-02-27 13:55 | HHI.PR ---
Subjective Remarks Patient says she is feeling all right, reports hand pain continues on the right slightly better. Denies any chest pain or shortness of breath. Denies nausea vomiting. Discussed with nurse. Multiple IVs have failed. ID to place PICC line. Objective Vital Signs Date Time Temp Pulse Resp B/P (MAP) Pulse Ox O2 Delivery O2 Flow Rate FiO2 02/27/18 12:00 81 02/27/18 08:04 98.2 71 16 107/58 (74) 97 02/27/18 08:00 75 02/27/18 05:56 Room Air 02/27/18 04:16 72 14 104/56 (72) 97 02/27/18 04:00 65 02/27/18 00:00 80 02/26/18 23:55 Room Air 02/26/18 20:00 98.5 75 16 110/64 (79) 96 02/26/18 20:00 83 02/26/18 16:51 98.8 96 18 112/65 (81) 97 02/26/18 16:00 76 I/O 02/26/18 02/26/18 02/26/18 02/27/18 02/27/18 02/27/18 06:59 14:59 22:59 06:59 14:59 22:59 Intake Total 740 ml Output Total 2000 ml Balance -1260 ml Intake Oral 740 ml Output Urine Total 2000 ml Result Diagram: 02/25/18 0707 02/26/18 0940 Objective Remarks GENERAL: Patient sitting up in bed. Appears comfortable. Awake, alert. Exam again unchanged. SKIN: Warm and dry. HEAD: Normocephalic. EYES: No scleral icterus. No injection or drainage. NECK: Supple, trachea midline. No JVD. CARDIOVASCULAR: Regular rate and rhythm without murmurs, gallops, or rubs. RESPIRATORY: Breath sounds equal bilaterally. No accessory muscle use. GASTROINTESTINAL: Abdomen soft, non-tender, nondistended. MUSCULOSKELETAL: No cyanosis, or edema. Right hand dressed. Peripheral perfusion intact. BACK: Nontender without obvious deformity. No CVA tenderness. A/P Assessment and Plan 37 yo female with a history of MRSA, cervical cancer, and seizures presented to the ED with complaints of a right hand wound for the last 4 days. //Sepsis, Cellulitis, right hand and left forearm (on admission with WBC 23.6, HR 121, temp 102.6, lactic 1.3, unknown organism, hx of MRSA) Right hand upper extremity CT reviewed: Dorsal soft tissue swelling of the hand with an area of decreased density projecting at the level of the second metacarpal head that is felt to relate to phlegmon that has yet to liquefy. No liquefied abscess currently seen. 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 = Continue antibiotics as per infectious disease. = 02/25. IV morphine as needed prior to dressing changes. = 02/26. Hand surgery and infectious disease following. Continue antibiotics. Appreciate assistance. = 02/27. I discussed with hand surgery yesterday, who will see the patient today. PICC line for IV antibiotics. Appreciate hand surgery and infectious disease assistance. //Tobacco use. Nicotine patch. Counselled. //Seizures, history not on medication for a few years Seizure precautions Monitor //DVT prophylaxis: SCDs Discussed Condition With Patient, nurse Discharge Planning Pending infectious disease and had surgery clearance. Willie Serrano MD February 27, 2018 13:55
--- NOTE | 2018-02-27 15:22 | HHI.PR ---
Subjective Remarks pt comfortable but c/o a 'scraping' pain in her bilateral wrists Objective Vital Signs Date Time Temp Pulse Resp B/P (MAP) Pulse Ox O2 Delivery O2 Flow Rate FiO2 02/27/18 12:00 81 02/27/18 08:04 98.2 71 16 107/58 (74) 97 02/27/18 08:00 75 02/27/18 05:56 Room Air 02/27/18 04:16 72 14 104/56 (72) 97 02/27/18 04:00 65 02/27/18 00:00 80 02/26/18 23:55 Room Air 02/26/18 20:00 98.5 75 16 110/64 (79) 96 02/26/18 20:00 83 02/26/18 16:51 98.8 96 18 112/65 (81) 97 02/26/18 16:00 76 I/O 02/26/18 02/26/18 02/26/18 02/27/18 02/27/18 02/27/18 07:00 15:00 23:00 07:00 15:00 23:00 Intake Total 740 ml Output Total 2000 ml Balance -1260 ml Intake Oral 740 ml Output Urine Total 2000 ml Result Diagram: 02/25/18 0707 02/26/18 0940 Objective Remarks examination of bilateral wrists/hands reveals no sign of any active infection; no induration, no erythema, no cellulitis, no fluctuance, no evidence of any further abscesses; NVI throughout left wrist/forearm wound clean, very superficial, granulated; full AROM, CR<2 sec right hand and wrist wounds very clean as well; no drainage, granulating,no induration, no edema except in index finger from disuse; no fluctuant areas, no pain to palpation, full AROM, CR<2 sec Assessment and Plan Problem List: (1) Abscess of right hand ICD Codes: L02.511 - Cutaneous abscess of right hand Status: Acute Plan: W/D hands with soap and water only d/c silvadine as wounds are very clean dry sterile light/small dressing changes 3-4 times a day ok to d/c from hand standpoint on oral abx (2) Abscess of right forearm ICD Codes: L02.413 - Cutaneous abscess of right upper limb (3) Abscess of wrist ICD Codes: L02.419 - Cutaneous abscess of limb, unspecified Chiki Liao III, MD February 27, 2018 15:22
[2018-02-27] MEDS: LEVOFLOXACIN 750 MG PREMIX INJ 150 ML IV SCH (19:55)
[2018-02-27] MEDS: REMOVE OLD PATCH T-DERMAL SCH (19:55)
[2018-02-28] VITALS (8 sets, daily range): BP systolic 92–151; BP diastolic 50–71; PULSE 55–86; RESP 18–20; TEMP 97.6–98.6; O2SAT 96–100
[2018-02-28] MEDS: oxyCODONE/ACETAMINOPHEN 10 MG/325 MG TAB PO PRN ×6 (00:31→23:16)
[2018-02-28] MEDS: VANCOMYCIN INJ 1,500 MG in SODIUM CHLORID 0.9% 500 ML INJ 500 ML IV SCH ×2 (02:54→14:47)
[2018-02-28] MEDS: HYDROmorphone HCL PF 0.5 MG/0.5 ML SYRINGE IV PRN ×5 (02:55→21:22)
[2018-02-28 05:40] LABS: AUTOMATED NEUTROPHIL # 4.4 TH/MM3 (1.8-7.7); BASOPHIL % 0.4 % (0.0-2.0); EOSINOPHIL # 0.4 TH/MM3 (0-0.4); EOSINOPHIL % 4.2 % (0.0-4.0); HEMATOCRIT 34.1 % (35.0-46.0); HEMOGLOBIN 11.4 GM/DL (11.6-15.3); LYMPH % 37.8 % (9.0-44.0); LYMPHOCYTE # 3.4 TH/MM3 (1.0-4.8); MEAN CELL VOLUME 80.6 FL (80.0-100.0); MEAN CORPUSCULAR HEMOGLOBIN 26.8 PG (27.0-34.0); MEAN CORPUSCULAR HGB CONC 33.3 % (32.0-36.0); MEAN PLATELET VOLUME 7.6 FL (7.0-11.0); MONO % 7.8 % (0.0-8.0); MONOCYTE # 0.7 TH/MM3 (0-0.9); NEUT % 49.8 % (16.0-70.0); PLATELET COUNT 385 TH/MM3 (150-450); RED BLOOD COUNT 4.23 MIL/MM3 (4.00-5.30); RED CELL DISTRIBUTION WIDTH 15.9 % (11.6-17.2); WHITE BLOOD COUNT 8.9 TH/MM3 (4.0-11.0)
[2018-02-28 05:52] LABS: ALBUMIN 2.8 GM/DL (3.4-5.0); CALCIUM 8.3 MG/DL (8.5-10.1); CREATININE 0.8 MG/DL (0.50-1.00); MAGNESIUM 2.2 MG/DL (1.5-2.5); PHOSPHORUS 4.1 MG/DL (2.5-4.9)
[2018-02-28] MEDS: METOCLOPRAMIDE HCL 10 MG/2 ML VIAL IV PUSH PRN ×2 (07:54→21:23)
[2018-02-28] MEDS: POVIDONE IODINE 10% OINT 30 GM TUBE TOPICAL SCH (08:02)
[2018-02-28] MEDS: NICOTINE 21 MG/24 HR PATCH T-DERMAL SCH (08:02)
[2018-02-28] MEDS: POVIDONE IODINE 10% SOLN 118 ML BOTTLE TOP SCH (08:02)
[2018-02-28] MEDS: SILVER SULFADIAZINE 1% CR 50 GM JAR TOP SCH (08:02)
[2018-02-28 09:22] LABS: BANDS 2 % (0-6); LYMPHOCYTES 35 % (9-44); MONOCYTES 5 % (0-8); MYELOCYTES 2 % (0-0); NEUTROPHIL # MANUAL DIFF 5.2 TH/MM3 (1.8-7.7); POLYS (SEG NEUTROPHILS) 54 % (16-70)
[2018-02-28 09:23] LABS: OVALOCYTES 1+ (NORMAL)
--- NOTE | 2018-02-28 09:44 | HHI.PR ---
Subjective Remarks Patient says she is feeling all right except for continued right hand pain. Objective Vital Signs Date Time Temp Pulse Resp B/P (MAP) Pulse Ox O2 Delivery O2 Flow Rate FiO2 02/28/18 08:00 97.9 60 20 92/50 (64) 97 02/28/18 07:00 Room Air 02/28/18 05:42 55 02/28/18 04:00 98.0 65 18 115/63 (80) 98 02/28/18 04:00 Room Air 02/28/18 00:00 77 02/28/18 00:00 Room Air 02/28/18 00:00 98.6 68 18 151/71 (97) 100 02/27/18 20:00 Room Air 02/27/18 20:00 76 02/27/18 20:00 98.5 69 18 120/78 (92) 100 02/27/18 17:58 78 02/27/18 16:04 98.1 78 16 114/68 (83) 96 02/27/18 12:04 98.4 81 16 113/72 (86) 95 02/27/18 12:00 81 02/27/18 10:00 Room Air I/O 02/27/18 02/27/18 02/27/18 02/28/18 02/28/18 02/28/18 07:00 15:00 23:00 07:00 15:00 23:00 Intake Total 1620 ml 737 ml Output Total 1000 ml Balance 1620 ml -263 ml Intake Oral 440 ml 222 ml IV Total 1180 ml 515 ml Output Urine Total 1000 ml # Voids 6 # Bowel Movements 1 0 Result Diagram: 02/28/18 0510 02/28/18 0510 Objective Remarks GENERAL: Patient sitting up in bed. Appears comfortable. Awake, alert. Exam unchanged. SKIN: Warm and dry. HEAD: Normocephalic. EYES: No scleral icterus. No injection or drainage. NECK: Supple, trachea midline. No JVD. CARDIOVASCULAR: Regular rate and rhythm without murmurs, gallops, or rubs. RESPIRATORY: Breath sounds equal bilaterally. No accessory muscle use. GASTROINTESTINAL: Abdomen soft, non-tender, nondistended. MUSCULOSKELETAL: No cyanosis, or edema. Right hand dressed. Peripheral perfusion intact. BACK: Nontender without obvious deformity. No CVA tenderness. A/P Assessment and Plan 37 yo female with a history of MRSA, cervical cancer, and seizures presented to the ED with complaints of a right hand wound for the last 4 days. //Sepsis, Cellulitis, right hand and left forearm (on admission with WBC 23.6, HR 121, temp 102.6, lactic 1.3, unknown organism, hx of MRSA) Right hand upper extremity CT reviewed: Dorsal soft tissue swelling of the hand with an area of decreased density projecting at the level of the second metacarpal head that is felt to relate to phlegmon that has yet to liquefy. No liquefied abscess currently seen. 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 = Continue antibiotics as per infectious disease. = 02/25. IV morphine as needed prior to dressing changes. = 02/26. Hand surgery and infectious disease following. Continue antibiotics. Appreciate assistance. = 02/27. I discussed with hand surgery yesterday, who will see the patient today. PICC line for IV antibiotics. Appreciate hand surgery and infectious disease assistance. = 02/28. Hand surgery is cleared patient for discharge. Will discuss with infectious disease regarding antibiotics for home. //Tobacco use. Nicotine patch. Counselled. //Seizures, history not on medication for a few years Seizure precautions Monitor //DVT prophylaxis: SCDs Discussed Condition With Patient, nurse Discharge Planning Hand surgery has cleared for discharge. Pending infectious disease abx recommendations Willie Serrano MD February 28, 2018 09:44
[2018-02-28] MEDS ORDERED: OXYC1TAB35 PO (09:50)
--- NOTE | 2018-02-28 15:07 | HHI.IDPN ---
Subjective Subjective Remarks cont to co R hand pain L forearm bettyer no fevers no nausea, no diarrhea Antibiotics levaquine vancomycin Allergies: Coded Allergies: adhesive (Verified Allergy, Severe, Rash, 12/03/17) penicillin G (Verified Allergy, Severe, Anaphylaxis, 12/03/17) lidocaine (Verified Allergy, Unknown, 02/20/18) Objective . Vital Signs Date Time Temp Pulse Resp B/P (MAP) Pulse Ox O2 Delivery O2 Flow Rate FiO2 02/28/18 12:00 98.1 81 20 111/56 (74) 96 02/28/18 08:00 97.9 60 20 92/50 (64) 97 02/28/18 08:00 77 02/28/18 07:00 Room Air 02/28/18 05:42 55 02/28/18 04:00 98.0 65 18 115/63 (80) 98 02/28/18 04:00 Room Air 02/28/18 00:00 77 02/28/18 00:00 Room Air 02/28/18 00:00 98.6 68 18 151/71 (97) 100 02/27/18 20:00 Room Air 02/27/18 20:00 76 02/27/18 20:00 98.5 69 18 120/78 (92) 100 02/27/18 17:58 78 02/27/18 16:04 98.1 78 16 114/68 (83) 96 . Laboratory Tests Test 02/28/18 05:10 White Blood Count 8.9 TH/MM3 Red Blood Count 4.23 MIL/MM3 Hemoglobin 11.4 GM/DL Hematocrit 34.1 % Mean Corpuscular Volume 80.6 FL Mean Corpuscular Hemoglobin 26.8 PG Mean Corpuscular Hemoglobin Concent 33.3 % Red Cell Distribution Width 15.9 % Platelet Count 385 TH/MM3 Mean Platelet Volume 7.6 FL Neutrophils (%) (Auto) 49.8 % Lymphocytes (%) (Auto) 37.8 % Monocytes (%) (Auto) 7.8 % Eosinophils (%) (Auto) 4.2 % Basophils (%) (Auto) 0.4 % Neutrophils # (Auto) 4.4 TH/MM3 Lymphocytes # (Auto) 3.4 TH/MM3 Monocytes # (Auto) 0.7 TH/MM3 Eosinophils # (Auto) 0.4 TH/MM3 Basophils # (Auto) 0.0 TH/MM3 CBC Comment AUTO DIFF Differential Total Cells Counted 100 Neutrophils % (Manual) 54 % Band Neutrophils % 2 % Lymphocytes % 35 % Monocytes % 5 % Eosinophils % 2 % Neutrophils # (Manual) 5.2 TH/MM3 Myelocytes 2 % Differential Comment FINAL DIFF MANUAL Platelet Estimate NORMAL Platelet Morphology Comment NORMAL Ovalocytes 1+ Laboratory Tests Test 02/28/18 05:10 Blood Urea Nitrogen 15 MG/DL Creatinine 0.80 MG/DL Random Glucose 83 MG/DL Albumin 2.8 GM/DL Calcium Level 8.3 MG/DL Phosphorus Level 4.1 MG/DL Magnesium Level 2.2 MG/DL Sodium Level 140 MEQ/L Potassium Level 4.0 MEQ/L Chloride Level 106 MEQ/L Carbon Dioxide Level 25.0 MEQ/L Anion Gap 9 MEQ/L Estimat Glomerular Filtration Rate 80 ML/MIN Imaging Last Impressions Hand MRI 02/24/18 0000 Signed Impressions: CONCLUSION: 1. Extensive cellulitis on the dorsum of the hand extending towards the wrist and around the proximal phalanges, especially the second with subcutaneous absc ess and ulceration as measured above. No marrow signal abnormality to suggest o steomyelitis. Upper Extremity CT 02/20/18 0000 Signed Impressions: Service Date/Time: Tuesday, February 20, 2018 18:24 - CONCLUSION: Dorsal soft tissue swelling of the hand with an area of decreased density projecting at the level of the second metacarpal head that is felt to relate to phlegmon that has yet to liquefy. No liquefied abscess currently seen. Madhu Jackson Jr., MD Physical Exam CONSTITUTIONAL/GENERAL: This is an adequately nourished patient, in no apparent distress. TUBES/LINES/DRAINS: SKIN: No jaundice, rashes, or lesions. MUSCULOSKELETAL: STATUS LOCALIS: R hand with mostly resolved edema, erytham, wounds with much less d/c filter tank tender edema resolved NEUROLOGICAL: Awake and alert. Motor and sensory grossly within normal limits. PSYCHIATRIC: upset about her recurrent infections Assessment & Plan Remarks Severe infection of R hand, combination of abscess, phelgmone, + involving deeper structures like joint, tendons More abscesses, requiring re- exploration - unrevealing clx R hand tenosynovitis, chronic , relapsing sp 7 surgeries ? - mycobacterial infection L foream abscess sp drainage cont levaquin and vancomycin for now will need cultures from subsequent surgical drainage if needed also will need path fu [employer], fungal clx untill final d/c'd by hand surgeon Will d/c on levaquin and IV vanco (no S to clindamycin available and pt with high grade allergy to PCN) will give 2 more weeks 2/2 tenosynovitis and joint involvemnt OPAT filled out dw Dr Zach Henriquez,Ivone Parsons MD February 28, 2018 15:07
--- NOTE | 2018-02-28 15:13 | HHI.FF ---
Infusion Therapy Location of Infusion Therapy: [facility] IV Infusion Order Patient Information Patient Weight 79.3 kg Diagnosis: Coded Allergies: adhesive (Verified Allergy, Severe, Rash, 12/03/17) penicillin G (Verified Allergy, Severe, Anaphylaxis, 12/03/17) lidocaine (Verified Allergy, Unknown, 02/20/18) Administer Medication Vancomycin 1300 mg IV q 12 Start Treatment: March 01, 2018 Stop Treatment: Mar 15, 2018 Additional Information Venous access: PICC Line Additional Instructions [x] Peripheral flush and dressing changes per protocol [x] Implanted port and central linen checker: * Implanted port: 10 ml Normal Saline followed by 5 ml Heparin 100 units/ml Heparin flush after each use and monthly to maintain. [] May leave port accessed during therapy. [] May leave peripheral site accessed for duration of therapy. [x] If patient has SOB or respiratory distress, check oxygen saturation. If less than 90% or clinical signs of respiratory distress, administer oxygen at 2 L/min. via nasal cannula and notify physician. [x] Anaphylaxis/Reaction orders: * Stop infusion. * Keep IV line open with saline flush. * Notify physician. * Monitor vital signs every 15 minutes until symptoms resolve. * Check Oxygen saturation; Oxygen at 2 L/min. via nasal cannula if less than 90% or clinical signs of respiratory distress. * Administer diphenhydramine (Benadryl) 25 mg IV STAT, (unless patient has received as pre-med). May repeat once, if necessary. * Solu-Cortef 250 mg IVP over 30-60 seconds, use 100 mg vials for each dissolution. * Epinephrine (1mg/1 ml) 0.3 mg subcutaneously or IVP now with any signs of respiratory distress. * Check with physician for new additional pre-med orders if patient is re- challenged or re-treated. [x] May remove PICC line when treatment complete, after confirming with Physician. [x] If the patient is admitted to the hospital, the ED, or transferred via [facility] , complete transfer form including medication reconciliation order sheet. Laboratory Tests Weekly Labs: CBC w/diff, Creatinine, Vancomycin Trough Ivone Henriquez MD February 28, 2018 15:13
[2018-02-28] MEDS ORDERED: LEVA750T9 PO (15:15)
--- NOTE | 2018-02-28 15:17 | RADRPT ---
EXAM DATE: 02/28/2018 3:13 PM EDT AGE/SEX: 37 years / Female INDICATIONS: Thrombosis. CLINICAL DATA: This is the patient's initial encounter. Patient reports that signs and symptoms have been present for 1 day and indicates a pain score of 4/10. MEDICAL/SURGICAL HISTORY: Lymphoma. Seizures. Stage [address] Methicillin-resistant St aph Aureus. Hypoglycemia. Psoriatic arthritis. Endometriosis. . Dilation & Curettage. Radiation ther apy. COMPARISON: No prior [place] exams available for comparison. TECHNIQUE: Venous ultrasound of both lower extremities was performed from the inguinal ligament to t he proximal calf. Real-time, color Doppler and spectral tracing, compression and augmentation techni ques were used. FINDINGS: Right Leg: There is normal compressibility of the deep venous system from the inguinal region to the proximal calf. No echogenic clot is seen in the lumen of the common femoral, femoral, popliteal, an d posterior tibial veins. There is a normal response of the venous system to proximal and distal aug mentation and respiration. Left Leg: There is normal compressibility of the deep venous system from the inguinal region to the proximal calf. No echogenic clot is seen in the lumen of the common femoral, femoral, popliteal, and posterior tibial veins. There is a normal response of the venous system to proximal and distal augm entation and respiration. CONCLUSION: 1. No DVT identified. Electronically signed by: Arturo Carlson MD 02/28/2018 3:15 PM EDT
--- NOTE | 2018-02-28 15:21 | HHI.PR ---
Addendum to Inpatient Note Additional Information I vancomycin bid not a feasibnle option will use - zyvox PO x 14 days or labs weekly on zyvox - daptomycin iv daily x 14 days or televancin iv daily x 14 days Ivone Henriquez MD February 28, 2018 15:21
[2018-02-28] MEDS ORDERED: ZYVO600T PO (15:36)
[2018-02-28] MEDS: REMOVE OLD PATCH T-DERMAL SCH (21:00)
[2018-02-28] MEDS: LEVOFLOXACIN 750 MG PREMIX INJ 150 ML IV SCH (21:21)
[2018-02-28] MEDS: diphenhydrAMINE HCL 25 MG CAP PO PRN (21:22)
[2018-03-01] VITALS (7 sets, daily range): BP systolic 99–122; BP diastolic 52–80; PULSE 62–80; RESP 16–18; TEMP 97.7–98.6; O2SAT 98–100
[2018-03-01] MEDS: VANCOMYCIN INJ 1,500 MG in SODIUM CHLORID 0.9% 500 ML INJ 500 ML IV SCH ×2 (01:41→15:23)
[2018-03-01] MEDS: HYDROmorphone HCL PF 0.5 MG/0.5 ML SYRINGE IV PRN ×4 (01:41→15:23)
[2018-03-01] MEDS: oxyCODONE/ACETAMINOPHEN 10 MG/325 MG TAB PO PRN ×3 (03:48→12:37)
[2018-03-01] MEDS: NICOTINE 21 MG/24 HR PATCH T-DERMAL SCH (08:09)
--- NOTE | 2018-03-01 08:58 | HHI.PR ---
Subjective Remarks Patient says she is feeling well. Pain is under control. Denies any chest pain or shortness of breath. Denies nausea or vomiting. Denies constipation. Objective Vital Signs Date Time Temp Pulse Resp B/P (MAP) Pulse Ox O2 Delivery O2 Flow Rate FiO2 03/01/18 04:00 98.4 71 18 122/70 (87) 98 03/01/18 04:00 63 03/01/18 04:00 Room Air 03/01/18 00:00 70 03/01/18 00:00 98.3 74 18 101/80 (87) 98 03/01/18 00:00 Room Air 02/28/18 20:00 98.6 76 18 129/61 (83) 99 02/28/18 20:00 Room Air 02/28/18 20:00 79 02/28/18 16:00 86 02/28/18 15:51 97.6 78 20 120/60 (80) 98 02/28/18 15:00 Room Air 02/28/18 12:00 98.1 81 20 111/56 (74) 96 02/28/18 12:00 83 02/28/18 11:00 Room Air I/O 02/28/18 02/28/18 02/28/18 03/01/18 03/01/18 03/01/18 07:00 15:00 23:00 07:00 15:00 23:00 Intake Total 737 ml 1180 ml 635 ml Output Total 1000 ml 1000 ml Balance -263 ml 1180 ml -365 ml Intake Oral 222 ml 120 ml IV Total 515 ml 1180 ml 515 ml Output Urine Total 1000 ml 1000 ml # Voids 3 # Bowel Movements 0 0 Result Diagram: 02/28/18 0510 02/28/18 0510 Objective Remarks GENERAL: Patient sitting up in bed. Appears comfortable. Awake, alert. Exam again unchanged. SKIN: Warm and dry. HEAD: Normocephalic. EYES: No scleral icterus. No injection or drainage. NECK: Supple, trachea midline. No JVD. CARDIOVASCULAR: Regular rate and rhythm without murmurs, gallops, or rubs. RESPIRATORY: Breath sounds equal bilaterally. No accessory muscle use. GASTROINTESTINAL: Abdomen soft, non-tender, nondistended. MUSCULOSKELETAL: No cyanosis, or edema. Right hand dressed. Peripheral perfusion intact. BACK: Nontender without obvious deformity. No CVA tenderness. A/P Assessment and Plan 37 yo female with a history of MRSA, cervical cancer, and seizures presented to the ED with complaints of a right hand wound for the last 4 days. //Sepsis, Cellulitis, right hand and left forearm (on admission with WBC 23.6, HR 121, temp 102.6, lactic 1.3, unknown organism, hx of MRSA) Right hand upper extremity CT reviewed: Dorsal soft tissue swelling of the hand with an area of decreased density projecting at the level of the second metacarpal head that is felt to relate to phlegmon that has yet to liquefy. No liquefied abscess currently seen. 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 = Continue antibiotics as per infectious disease. = 02/25. IV morphine as needed prior to dressing changes. = 02/26. Hand surgery and infectious disease following. Continue antibiotics. Appreciate assistance. = 02/27. I discussed with hand surgery yesterday, who will see the patient today. PICC line for IV antibiotics. Appreciate hand surgery and infectious disease assistance. = 02/28. Hand surgery is cleared patient for discharge. Will discuss with infectious disease regarding antibiotics for home. = 03/01. Discussed with ID yesterday, who recommends discharge home on Zyvox 14 day course. //Tobacco use. Nicotine patch. Counselled. //Seizures, history not on medication for a few years Seizure precautions Monitor //DVT prophylaxis: SCDs Discussed Condition With Patient, nurse Discharge Planning Hand surgery has cleared for discharge. Discussed with ID on 02/28. Patient with penicillin allergy. Okay for discharge on Zyvox 14 day course. No need for vancomycin Willie Serrano MD March 01, 2018 08:58
[2018-03-01] MEDS: POVIDONE IODINE 10% OINT 30 GM TUBE TOPICAL SCH (09:00)
[2018-03-01] MEDS: SILVER SULFADIAZINE 1% CR 50 GM JAR TOP SCH (09:00)
[2018-03-01] MEDS: POVIDONE IODINE 10% SOLN 118 ML BOTTLE TOP SCH (09:00)
--- NOTE | 2018-03-01 09:09 | HHI.DS ---
Discharge Summary Admission Date February 20, 2018 at 18:51 Discharge Date: March 01, 2018 Admitting Diagnosis Right hand abscess, sepsis (1) Abscess of right hand ICD Code: L02.511 - Cutaneous abscess of right hand Status: Acute Procedures debridement by hand surgery. Please see report Brief History - From Admission 37 y/o female with a history of MRSA, cervical cancer, and seizures presented to the ED with complaints of a right hand wound for the last 4 days. She states she hit her had on a wall, and it started to swell and become very painful. She states now the pain is a 10/10, constant, throbbing to her right hand with radiation up her arm, no associated symptoms. She cries when you try to touch it. She allowed the ED physician to mary it open but did not allow them to squeeze it. She denies any IVDA. She states her apartment is clean but the complex she lives in is not. She has a history of seizures but does not take medications because she can not afford it. She was recently admitted in december for left forearm cellulites and states she completed those antibiotics as prescribed. Today she still has a wound to the left forearm that is draining bloody purulent drainage. CBC/BMP: 02/28/18 0510 02/28/18 0510 Significant Findings Laboratory Tests Test 02/26/18 09:40 02/27/18 10:06 02/28/18 05:10 Estimat Glomerular Filtration Rate 76 ML/MIN (>89) 80 ML/MIN (>89) Vancomycin Level Trough 19.1 MCG/ML (5.0-10.0) Hemoglobin 11.4 GM/DL (11.6-15.3) Hematocrit 34.1 % (35.0-46.0) Mean Corpuscular Hemoglobin 26.8 PG (27.0-34.0) Eosinophils (%) (Auto) 4.2 % (0.0-4.0) Myelocytes 2 % (0-0) Ovalocytes 1+ (NORMAL) Albumin 2.8 GM/DL (3.4-5.0) Calcium Level 8.3 MG/DL (8.5-10.1) Imaging Last Impressions Lower Extremity Ultrasound 02/28/18 0000 Signed Impressions: CONCLUSION: 1. No DVT identified. Hand MRI 02/24/18 0000 Signed Impressions: CONCLUSION: 1. Extensive cellulitis on the dorsum of the hand extending towards the wrist and around the proximal phalanges, especially the second with subcutaneous absc ess and ulceration as measured above. No marrow signal abnormality to suggest o steomyelitis. Upper Extremity CT 02/20/18 0000 Signed Impressions: Service Date/Time: Tuesday, February 20, 2018 18:24 - CONCLUSION: Dorsal soft tissue swelling of the hand with an area of decreased density projecting at the level of the second metacarpal head that is felt to relate to phlegmon that has yet to liquefy. No liquefied abscess currently seen. Madhu Jackson Jr., MD PE at Discharge GENERAL: This is a well-nourished, well-developed patient, in pain SKIN: Severe Right hand cellulitis with purulent drainage CARDIOVASCULAR: Regular rate and rhythm without murmurs, gallops, or rubs. RESPIRATORY: Clear to auscultation. Breath sounds equal bilaterally. No wheezes , rales, or rhonchi. GASTROINTESTINAL: Abdomen soft, non-tender, nondistended. No hepato-splenomegaly , or palpable masses. No guarding. MUSCULOSKELETAL: Extremities without clubbing, cyanosis, or edema. Right thumb joint tenderness. No calf tenderness. NEUROLOGICAL: Awake and alert. Motor and sensory grossly within normal limits. Normal speech. Hospital Course Patient presented with sepsis, was treated for right hand cellulitis with IV antibiotics. Infectious disease was consulted and managed antibiotics during admission. Hand surgery was consulted, patient underwent debridement with cultures negative. Imaging as above. Hand surgery cleared patient for discharge on by mouth antibiotics. Due to penicillin allergy, patient will be sent home on Zyvox as per infectious disease recommendations. Patient is to follow-up with wound care clinic. For problem based summary from most recent progress note, please see below. 37 yo female with a history of MRSA, cervical cancer, and seizures presented to the ED with complaints of a right hand wound for the last 4 days. //Sepsis, Cellulitis, right hand and left forearm (on admission with WBC 23.6, HR 121, temp 102.6, lactic 1.3, unknown organism, hx of MRSA) Right hand upper extremity CT reviewed: Dorsal soft tissue swelling of the hand with an area of decreased density projecting at the level of the second metacarpal head that is felt to relate to phlegmon that has yet to liquefy. No liquefied abscess currently seen. 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 = Continue antibiotics as per infectious disease. = 02/25. IV morphine as needed prior to dressing changes. = 02/26. Hand surgery and infectious disease following. Continue antibiotics. Appreciate assistance. = 02/27. I discussed with hand surgery yesterday, who will see the patient today. PICC line for IV antibiotics. Appreciate hand surgery and infectious disease assistance. = 02/28. Hand surgery is cleared patient for discharge. Will discuss with infectious disease regarding antibiotics for home. = 03/01. Discussed with ID yesterday, who recommends discharge home on Zyvox 14 day course. //Tobacco use. Nicotine patch. Counselled. //Seizures, history not on medication for a few years Seizure precautions Monitor //DVT prophylaxis: SCDs Discussed Condition With Patient, nurse Discharge Planning Hand surgery has cleared for discharge. Discussed with ID on 02/28. Patient with penicillin allergy. Okay for discharge on Zyvox 14 day course. No need for vancomycin Pt Condition on Discharge: Good Discharge Disposition: Discharge Home Discharge Time: > 30 minutes Discharge Instructions DIET: Follow Instructions for: As Tolerated, No Restrictions Activities you can perform: Regular-No Restrictions Other Activity Instructions: do not use right hand Follow up Referrals: PCP Follow-up - 1 Week with [facility] - 2-3 Days with [facility] New Medications: Levofloxacin (Levaquin) 750 Mg Tablet 750 MG PO DAILY for Infection for 14 Days, #14 TAB 0 Refills Linezolid (Zyvox) 600 Mg Tab 600 MG PO Q12H for Infection, #28 TAB 0 Refills Oxycodone-Acetaminophen (Oxycodone-Acetaminophen) 7.5-325 mg Tab 1-2 TAB PO Q4H PRN for PAIN, #30 TAB 0 Refills Willie Serrano MD March 01, 2018 09:09
[2018-03-02] MEDS ORDERED: PHARMACY ORDERED LAB ONE (02:45)
== END 2018-03-01 18:46 | disposition home or self-care (01) | DRG 872 ==
LOC: NEPD 15:00 → NEDA 18:51 → N04B 20:29
PROVIDERS: ADMIT Internal Medicine; ATTEND Internal Medicine
PROC: 0X9J0ZX Drainage of Right Hand, Open Approach, Diagnostic (ICD-10-PCS; principal; 2018-02-20)
PROC: 0H9FXZX Drainage of Right Hand Skin, External Approach, Diagnostic (ICD-10-PCS; 2018-02-21)
PROC: 0H9EXZX Drainage of Left Lower Arm Skin, External Approach, Diagnostic (ICD-10-PCS; 2018-02-21)
PROC: 3E10X8Z Irrigation of Skin and Mucous Membranes using Irrigating Substance (ICD-10-PCS; 2018-02-21)
PROC: 0H9DXZZ Drainage of Right Lower Arm Skin, External Approach (ICD-10-PCS; 2018-02-24)
DX: A41.9 Sepsis, unspecified organism (principal); L40.50 Arthropathic psoriasis, unspecified; L02.414 Cutaneous abscess of left upper limb; L02.511 Cutaneous abscess of right hand; L03.113 Cellulitis of right upper limb; L02.512 Cutaneous abscess of left hand; M65.841 Other synovitis and tenosynovitis, right hand; F17.210 Nicotine dependence, cigarettes, uncomplicated; T50.996A Underdosing of other drugs, medicaments and biological substances, initial encounter; Z85.41 Personal history of malignant neoplasm of cervix uteri; Z85.72 Personal history of non-Hodgkin lymphomas; Z86.14 Personal history of Methicillin resistant Staphylococcus aureus infection; Z91.14 Patient's other noncompliance with medication regimen; Z80.41 Family history of malignant neoplasm of ovary; Z91.120 Patient's intentional underdosing of medication regimen due to financial hardship; Z78.9 Other specified health status; Z88.0 Allergy status to penicillin
CPT/HCPCS: 10060; 36569; 73201; 73220; 76937; 80048; 80053; 80069; 80202; 80307; 82565; 83605; 83735; 85007; 85025; 85027; 85610; 85730; 86403; 87015; 87040; 87070; 87102; 87116; 87205; 87206; 93970; 96365; 96366; 96375; A9579; J1100; J1170; J1580; J1885; J1956; J2060; J2175; J2250; J2270; J2405; J2765; J3010; J3370; J7030; J7040; J7050; J7120; Q9967